=== PATIENT | female | born 1955 | race American Indian/Alaskan Native ===

== ENCOUNTER 2020-02-02 08:39 | Observation (INO) ==
[2020-02-02] MEDS ORDERED: IOPAMIDOL 100 ML BOTTLE IV ONE ×2 (08:40→14:51)
--- NOTE | 2020-02-02 09:03 | XRay Report ---
INDICATION: chest pain, SOB TECHNIQUE: AP portable semiupright chest x-ray COMPARISON: Previous chest x-ray dated 01/20/2020 FINDINGS: Lungs:Lungs are negative. No focal pulmonary parenchymal infiltrate or mass Heart, vascular:There is mild cardiomegaly, unchanged. No pulmonary congestion or pulmonary edema Mediastinum, dimas:No mediastinal widening. No hilar mass Pleura:No pleural fluid. No pleural-based mass or calcification Skeletal:Negative. IMPRESSION: 1. Cardiomegaly, unchanged 2. No pulmonary congestion or pulmonary edema. No focal pulmonary parenchymal infiltrate Interpreted and Authenticated by: Adeel De Leon 02/02/20
[2020-02-02 09:20] LABS: Basophils # (Auto) 0.04 K/mcL (0.00-0.30); Basophils % (Auto) 0.6 % (0.0-2.0); Eosinophils # (Auto) 0.07 K/mcL (0.00-0.70); Eosinophils % (Auto) 1.1 % (0.0-7.0); Granulocytes % (Auto) 55.2 % (38.0-78.0); Hematocrit 38.4 % (34.1-44.9); Hemoglobin 12.7 g/dL (11.2-15.7); Lymphocytes # (Auto) 2.37 K/mcL (1.50-4.80); Mean Cell Volume 88.9 fL (80.0-100.0); Mean Corpuscular HGB Conc 33.1 g/dL (31.0-36.0); Mean Platelet Volume 9.7 fL (7.4-10.4); Monocytes # (Auto) 0.39 K/mcL (0.10-0.90); Monocytes % (Auto) 6.1 % (1.0-12.0); Platelet Count 223 K/mcL (140-440); RBC 4.32 M/mcL (3.59-5.38); Red Cell Distribution Width 13.7 % (11.5-14.5); WBC 6.4 K/mcL (4.50-11.00)
[2020-02-02] MEDS ORDERED: ASPIRIN 81 MG TAB.CHEW CHEWED ONE (09:27)
[2020-02-02] MEDS ORDERED: KETOROLAC 30 MG/ML VIAL IV ONE (09:27)
[2020-02-02 10:35] LABS: Prothrombin Time 13.7 sec (11.9-14.5)
[2020-02-02 10:49] LABS: ALT/SGPT 42 U/l (0-40); AST/SGOT 37 U/l (0-37); Albumin 4.5 gm/dL (3.2-5.2); Albumin/Globulin Ratio 1.7 (1.0-2.3); Alkaline Phosphatase 107 U/L (39-117); Bilirubin,Total 0.8 mg/dL (0.0-1.0); Blood Urea Nitrogen 24 mg/dl (8-23); Calcium 9.6 mg/dl (8.6-10.4); Carbon Dioxide 19 mmol/L (22-30); Chloride 103 mmol/L (96-108); Globulin 2.6 gm/dL (2.2-3.7); Glomerular Filtration Rate 59; Glucose 203 mg/dL (70-105)
--- NOTE | 2020-02-02 11:17 | Cat Scan Report ---
INDICATION: SOB, tachycardia COMPARISON: Chest x-rays dated 02/02/2020, 01/20/2020, 01/12/2020 TECHNIQUE: Axial images obtained through the chest. 60ml Isovue 370 injected intravenously, and scanning was performed during pulmonary arterial phase. Sagittally and coronally reformatted images were obtained. MIP reformatted images. FINDINGS: Lungs:No focal pulmonary parenchymal density. No calcified or noncalcified nodule Mediastinum, vascular:Main pulmonary artery, right pulmonary artery, left pulmonary artery are negative. No intraluminal filling defects. No lobar, segmental, or subsegmental emboli. There are findings consistent with right heart strain. There is reflux of contrast material into the inferior vena cava and hepatic veins Thoracic aorta is negative. No aneurysmal dilatation No pathologic mediastinal or hilar adenopathy Heart:There is cardiomegaly with four-chamber cardiac enlargement. No pericardial effusion. There is only minimal coronary artery calcification with calcified plaque in the left circumflex coronary artery Pleura:No significant pleural effusion. No pleural mass or calcification Axilla, supraclavicular regions, chest wall:No pathologic axillary or supraclavicular adenopathy. Musculoskeletal:Negative thoracic spine. No compression fracture. No lytic lesion. No rib or sternal lesions Upper Abdomen:Negative IMPRESSION: 1. Negative pulmonary CTA. No pulmonary embolism 2. Cardiomegaly. There is right heart strain with reflux of contrast material into the inferior vena cava and hepatic veins The exam was performed using radiation dose optimization techniques including, but not limited to, automated exposure control, adjustment of the mA and/or kV according to patient size and use of iterative reconstruction technique. Interpreted and Authenticated by: Adeel De Leon 02/02/20
[2020-02-02] MEDS ORDERED: FUROSEMIDE 40 MG/4 ML VIAL IV ONE ×2 (11:18→12:23)
--- NOTE | 2020-02-02 11:21 | Emergency Department Note ---
Chest Pain HPI General Chief Complaint: Chest Pain Stated Complaint: chest pain Time Seen by Provider: 02/02/20 09:27 Source: patient Mode of arrival: ambulatory Limitations: no limitations History of Present Illness HPI Narrative: Narrative: 64-year-old female comes in for substernal chest pain is been going on for months. Additionally she is having orthopnea. Cannot seem to catch her breath. Known history of congestive heart failure but I do not see an echo on her record. Denies fever chills. She is having some nausea and some upper belly pain sort of a prickly feeling. Loose stools from a stool softener. Increased swelling in her feet-currently taking furosemide 40 mg once a day She has an appointment for mammogram today Related Data Home Medications Medication Instructions Recorded Confirmed aspirin [Adult Low Dose Aspirin EC] 81 mg PO DAILY 04/25/16 02/02/20 acetaminophen 325 mg tablet 650 mg PO Q4H PRN 01/30/20 02/02/20 docusate sodium 100 mg capsule 100 mg PO BID cap 01/30/20 02/02/20 insulin detemir U-100 100 unit/mL 5 unit SUB-Q QDAY ml 01/30/20 02/02/20 (3 mL) subcutaneous pen losartan 25 mg tablet 25 mg PO QDAY 01/30/20 02/02/20 multivitamin with minerals 1 tab PO QDAY 01/30/20 02/02/20 Previous Rx's Medication Instructions Recorded furosemide 40 mg PO QAM #3 tab 01/20/20 potassium chloride 20 meq PO QDAY #3 tab 01/20/20 Allergies Allergy/AdvReac Type Severity Reaction Status Date / Time hydromorphone [From Dilaudid] AdvReac Severe Vomiting Verified 02/02/20 08:41 Review of Systems ROS ROS Narrative: Narrative: All systems ED: reviewed and negative except as stated. PFSH Narrative Patient History Narrative: Narrative: Medical/Surgical/Family History All Active Problems (Updated 02/02/20 @ 14:42 by Calos Osuna MD) Right hand pain (Chronic) Scabies (Chronic) Lower respiratory infection (Chronic) URI (upper respiratory infection) (Chronic) Sprain of right ankle (Chronic) Mitral valve regurgitation (Chronic) Pharyngitis (Chronic) Bronchitis (Chronic) Plantar fasciitis of right foot (Chronic) Periostitis of ankle (Chronic) Bilateral foot pain (Chronic) Lateral epicondylitis of left elbow (Chronic) Pain in elbow (Chronic) Olecranon bursitis, right elbow (Chronic) Plantar fasciitis, left (Chronic) Candidiasis of skin (Chronic) Lichen planus (Chronic) Angular cheilitis (Chronic) Regular astigmatism (Chronic) Myopia (Chronic) Right foot pain (Chronic) Cirrhosis of liver (Chronic) Knee pain (Chronic) Heart failure (Chronic) Vitamin D deficiency (Chronic) Proteinuria (Chronic) Hemorrhoids without complication (Chronic) Hypertriglyceridemia (Chronic) Essential hypertension (Chronic) Depression (Chronic) Alcoholism (Chronic) Obese (Chronic) Chronic nasal congestion (Chronic) Cough (Chronic) Diabetes mellitus (Chronic) COPD (chronic obstructive pulmonary disease) (Chronic) Lung nodule seen on imaging study (Chronic) Chest pain (Chronic) Congestive heart failure (Chronic) Abdominal pain (Chronic) Acute bronchitis (Chronic) Diverticulitis (Chronic) Atypical chest pain (Chronic) Gastritis (Chronic) Urinary tract infection (Chronic) Constipation (Chronic) Viral syndrome (Chronic) Medical History Abdominal pain (Chronic) Acute bronchitis (Chronic) Alcoholism (Chronic) Angular cheilitis (Chronic) Atypical chest pain (Chronic) Bilateral foot pain (Chronic) Bronchitis (Chronic) Candidiasis of skin (Chronic) Chest pain (Chronic) Chronic nasal congestion (Chronic) Cirrhosis of liver (Chronic) Congestive heart failure (Chronic) Constipation (Chronic) Cough (Chronic) Depression (Chronic) Diverticulitis (Chronic) Essential hypertension (Chronic) Gastritis (Chronic) Heart failure (Chronic) Hemorrhoids without complication (Chronic) Hypertriglyceridemia (Chronic) Knee pain (Chronic) Lateral epicondylitis of left elbow (Chronic) Lichen planus (Chronic) of lips Lower respiratory infection (Chronic) Mitral valve regurgitation (Chronic) Myopia (Chronic) Obese (Chronic) Olecranon bursitis, right elbow (Chronic) Pain in elbow (Chronic) Periostitis of ankle (Chronic) Pharyngitis (Chronic) Plantar fasciitis of right foot (Chronic) Plantar fasciitis, left (Chronic) Proteinuria (Chronic) Regular astigmatism (Chronic) Right foot pain (Chronic) Right hand pain (Chronic) Scabies (Chronic) Sprain of right ankle (Chronic) Type 2 diabetes mellitus (Acute) URI (upper respiratory infection) (Chronic) Urinary tract infection (Chronic) Viral syndrome (Chronic) Vitamin D deficiency (Chronic) Family History Other No pertinent family history Social History Smoking Status: Current every day smoker Exam Narrative Narrative: Narrative: No acute distress resting and sitting up. She is able to talk in complete sentences but she has a slight end expiratory wheeze and sort of gasping for breath. She is mildly tachycardic and tachypneic at rest sitting up. Normocephalic atraumatic. Conjunctive are clear sclerae white nonicteric. No nasal discharge or congestion. Oropharynx pink and moist. Neck is supple without lymphadenopathy thyromegaly or carotid bruit. Heart is regular rate but mildly tachycardic. Lungs are basically clear to auscultation bilaterally without rales or rhonchi but she does have that slight end expiratory wheeze as noted above. Abdomen is soft nontender nondistended. No peritoneal signs or guarding. No pedal edema. +2 radial pulse. Alert and able answer questions. General Limitations: no limitations Course Vital Signs Vital signs: Vital Signs Temperature 97.0 F 02/02/20 08:39 Respiratory Rate 16 02/02/20 08:39 Pulse Oximetry (%) 98 02/02/20 08:39 Temperature 97.0 F 02/02/20 14:32 Pulse Rate 102 H 02/02/20 13:36 Respiratory Rate 20 02/02/20 14:32 Blood Pressure 134/79 02/02/20 14:32 Pulse Oximetry (%) 95 02/02/20 14:32 MDM MDM Narrative Medical decision making narrative: Narrative: Suspect congestive heart failure. Work-up ordered. Start furosemide. Other things in the differential include PE pneumonia malignancy etc. Imaging is unrevealing except for right heart strain suggestive of right-sided heart failure. Repeat dose of furosemide as she is only urinating a little bit Urinalysis suggest UTI with few bacteria seen. Start Macrobid Oxygenation improved after the first dose of furosemide but she continued to have tachypnea and tachycardia. Noted BNP is over double what it was last time she was here Discussed results with the patient and she is not quite comfortable going home- still with orthopnia tachypnea tachycardia. She is complaining of some very mild belly pain across her pannus. But exam is benign and we do not see any sign of infection-no leukocytosis or lactic acidosis I discussed this patient with Dr. Fernández, our hospitalist who agreed to accept the patient for further care and evaluation in the hospital. Lab Data Lab results reviewed: Yes I reviewed the patient's lab results. Result diagrams: 02/02/20 08:50 02/02/20 09:33 Labs: Lab Results 02/02/20 02/02/20 02/02/20 Range/Units 08:50 08:50 08:50 WBC 6.4 (4.50-11.00) K/mcL RBC 4.32 (3.59-5.38) M/mcL Hgb 12.7 (11.2-15.7) g/dL Hct 38.4 (34.1-44.9) % MCV 88.9 (80.0-100.0) fL MCH 29.4 (26.0-34.0) pg MCHC 33.1 (31.0-36.0) g/dL RDW 13.7 (11.5-14.5) % Plt Count 223 (140-440) K/mcL MPV 9.7 (7.4-10.4) fL Gran % 55.2 (38.0-78.0) % Lymph % (Auto) 37.0 (15.5-49.0) % [place] % (Auto) 6.1 (1.0-12.0) % Eos % (Auto) 1.1 (0.0-7.0) % Baso % (Auto) 0.6 (0.0-2.0) % Gran # 3.54 (1.80-8.00) K/mcL Lymph # (Auto) 2.37 (1.50-4.80) K/mcL [place] # (Auto) 0.39 (0.10-0.90) K/mcL Eos # (Auto) 0.07 (0.00-0.70) K/mcL Baso # (Auto) 0.04 (0.00-0.30) K/mcL PT (11.9-14.5) sec INR (0.9-1.1) Sodium TNP Potassium TNP Chloride TNP Carbon Dioxide TNP Anion Gap TNP BUN TNP Creatinine TNP GFR Calculation TNP Glucose TNP Calcium TNP Total Bilirubin TNP AST TNP ALT TNP Alkaline Phosphatase TNP Troponin T TNP NT-Pro-B Natriuret Pep (0-125) pg/ml Total Protein TNP Albumin TNP Globulin TNP Albumin/Globulin Ratio TNP Lipase (7-60) U/L Urine Color Urine Appearance Urine pH (5.0-9.0) Ur Specific [place] (1.000-1.035) Urine Protein (NEG) mg/dL Urine Glucose (UA) (NEG) mg/dL Urine Ketones (NEG) mg/dL Urine Occult Blood (<0.03) mg/dL Urine Nitrate (NEG) Urine Bilirubin (NEG) mg/dL Urine Urobilinogen (NEG) mg/dL Ur Leukocyte Esterase (NEG) /uL Urine RBC (0-1) /hpf Urine WBC (0-4) /hpf Ur Squamous Epith Cells (0-4) /hpf Urine Bacteria (0) /hpf Hyaline Casts (0-2) /lpf Urine Mucus (0) /hpf Ur Culture Indicated? 02/02/20 02/02/20 02/02/20 Range/Units 09:33 09:33 09:33 WBC (4.50-11.00) K/mcL RBC (3.59-5.38) M/mcL Hgb (11.2-15.7) g/dL Hct (34.1-44.9) % MCV (80.0-100.0) fL MCH (26.0-34.0) pg MCHC (31.0-36.0) g/dL RDW (11.5-14.5) % Plt Count (140-440) K/mcL MPV (7.4-10.4) fL Gran % (38.0-78.0) % Lymph % (Auto) (15.5-49.0) % [place] % (Auto) (1.0-12.0) % Eos % (Auto) (0.0-7.0) % Baso % (Auto) (0.0-2.0) % Gran # (1.80-8.00) K/mcL Lymph # (Auto) (1.50-4.80) K/mcL [place] # (Auto) (0.10-0.90) K/mcL Eos # (Auto) (0.00-0.70) K/mcL Baso # (Auto) (0.00-0.30) K/mcL PT (11.9-14.5) sec INR (0.9-1.1) Sodium 138 Potassium 4.0 Chloride 103 Carbon Dioxide 19 L Anion Gap 16.0 BUN 24 H Creatinine 1.0 GFR Calculation 59 Glucose 203 H Calcium 9.6 Total Bilirubin 0.8 AST 37 ALT 42 H Alkaline Phosphatase 107 Troponin T < 0.01 NT-Pro-B Natriuret Pep 6089.0 H (0-125) pg/ml Total Protein 7.1 Albumin 4.5 Globulin 2.6 Albumin/Globulin Ratio 1.7 Lipase 27 (7-60) U/L Urine Color Urine Appearance Urine pH (5.0-9.0) Ur Specific [place] (1.000-1.035) Urine Protein (NEG) mg/dL Urine Glucose (UA) (NEG) mg/dL Urine Ketones (NEG) mg/dL Urine Occult Blood (<0.03) mg/dL Urine Nitrate (NEG) Urine Bilirubin (NEG) mg/dL Urine Urobilinogen (NEG) mg/dL Ur Leukocyte Esterase (NEG) /uL Urine RBC (0-1) /hpf Urine WBC (0-4) /hpf Ur Squamous Epith Cells (0-4) /hpf Urine Bacteria (0) /hpf Hyaline Casts (0-2) /lpf Urine Mucus (0) /hpf Ur Culture Indicated? 02/02/20 02/02/20 Range/Units 09:33 10:28 WBC (4.50-11.00) K/mcL RBC (3.59-5.38) M/mcL Hgb (11.2-15.7) g/dL Hct (34.1-44.9) % MCV (80.0-100.0) fL MCH (26.0-34.0) pg MCHC (31.0-36.0) g/dL RDW (11.5-14.5) % Plt Count (140-440) K/mcL MPV (7.4-10.4) fL Gran % (38.0-78.0) % Lymph % (Auto) (15.5-49.0) % [place] % (Auto) (1.0-12.0) % Eos % (Auto) (0.0-7.0) % Baso % (Auto) (0.0-2.0) % Gran # (1.80-8.00) K/mcL Lymph # (Auto) (1.50-4.80) K/mcL [place] # (Auto) (0.10-0.90) K/mcL Eos # (Auto) (0.00-0.70) K/mcL Baso # (Auto) (0.00-0.30) K/mcL PT 13.7 (11.9-14.5) sec INR 1.0 (0.9-1.1) Sodium Potassium Chloride Carbon Dioxide Anion Gap BUN Creatinine GFR Calculation Glucose Calcium Total Bilirubin AST ALT Alkaline Phosphatase Troponin T NT-Pro-B Natriuret Pep (0-125) pg/ml Total Protein Albumin Globulin Albumin/Globulin Ratio Lipase (7-60) U/L Urine Color Yellow Urine Appearance Clear Urine pH 5.0 (5.0-9.0) Ur Specific [place] 1.009 (1.000-1.035) Urine Protein 30 A (NEG) mg/dL Urine Glucose (UA) Negative (NEG) mg/dL Urine Ketones Neg (NEG) mg/dL Urine Occult Blood Neg (<0.03) mg/dL Urine Nitrate Neg (NEG) Urine Bilirubin Neg (NEG) mg/dL Urine Urobilinogen Neg (NEG) mg/dL Ur Leukocyte Esterase Neg (NEG) /uL Urine RBC < 1 (0-1) /hpf Urine WBC < 1 (0-4) /hpf Ur Squamous Epith Cells 1 (0-4) /hpf Urine Bacteria Few A (0) /hpf Hyaline Casts 3 H (0-2) /lpf Urine Mucus Few (0) /hpf Ur Culture Indicated? Yes Radiology Data Radiology results reviewed: Yes I reviewed the patient's radiology results. Radiology results narrative: Chest x-ray is unrevealing. CT angiogram of the chest is ordered to further sort out whether she has a PE causing her tachycardia and shortness of breath. CT angiogram however shows right-sided heart strain consistent with congestive heart failure however. No PE is seen EKG Data EKG #1: EKG attestation: Yes I reviewed and interpreted this EKG. EKG results narrative: EKG shows a rate of 109 sinus tachycardia with PVCs right bundle branch block and a left fascicular block as well-there is no appreciable difference between this EKG and the one from January 19 Discharge Plan Patient/Caregiver Discharge Instructions Pt seen by CIVIL RIGHTS REPRESENTATIVE/PA only: No Clinical Impression: Congestive heart failure Qualifiers: Heart failure type: right-sided Heart failure chronicity: acute on chronic Qualified Code(s): I50.813 - Acute on chronic right heart failure Urinary tract infection Qualifiers: Urinary tract infection type: acute cystitis Hematuria presence: without hematuria Qualified Code(s): N30.00 - Acute cystitis without hematuria Patient Disposition: Xfer As Inpt ([facility]) Condition: Fair Follow up with: Doyle Crawford MD [Primary Care Provider] - Prescriptions: No Action acetaminophen 325 mg tablet 650 mg PO Q4H PRN (Reason: Pain) RF: 0 Levemir FlexTouch U-100 Insuln 100 unit/mL (3 mL) insulin pen 5 unit SUB-Q QDAY RF: 0 losartan 25 mg tablet 25 mg PO QDAY RF: 0 multivitamin with minerals 1 tab PO QDAY RF: 0 aspirin [Adult Low Dose Aspirin] 81 MG tablet,delayed release (DR/EC) 81 mg PO DAILY RF: 0 docusate sodium [Stool Softener] 100 mg capsule 100 mg PO BID RF: 0 furosemide 40 mg tablet 40 mg PO QAM Qty: 3 RF: 0 potassium chloride 20 mEq tablet extended release 20 meq PO QDAY Qty: 3 RF: 0
[2020-02-02 11:52] LABS: Appearance,Urine CLEAR; Bacteria,Urine FEW /hpf (0); Bilirubin,Urine NEG (NEG); Color,Urine YELLOW; Culture Indicated,Urine YES; Glucose,Urine (UA) NEGATIVE (NEG); Ketones,Urine NEG (NEG); Leukocyte Esterase,Urine NEG /uL (NEG); Mucus,Urine FEW /hpf (0); Nitrate,Urine NEG (NEG); Protein,Urine 30 mg/dL (NEG); Specific Gravity,Urine 1.009 (1.000-1.035); Urine Blood NEG mg/dL (<0.03); Urine Hyaline Cast 3 /lpf (0-2); Urine RBC < 1 /hpf (0-1); Urine Squamous Epithelial Cell 1 /hpf (0-4); Urine WBC < 1 /hpf (0-4); Urobilinogen,Urine NEG (NEG)
[2020-02-02] MEDS ORDERED: NITROFURANTOIN SR 100 MG CAPSULE PO ONE (12:05)
--- NOTE | 2020-02-02 14:07 | Internal Med History&Physical ---
HPI History of Present Illness Patient information: Note initiated : 02/02/20 at 2:05 pm Service Date, if different from initiated Date: [] Patient: Cait Reyes a 64 y/o F admitted on for Chest Pain . Chief Complaint: [] History of present illness: Ms. Reyes is a 64 year old F who lives fairly independently at home and was in her baseline state of health of less than 2 weeks prior to presentation when she started experiencing progressive dyspnea initially on maximal exertion dyspnea at rest by the day of presentation. She endorses to associated orthopnea but denies productive cough/sputum. She denies fever chills. She denies changes in medication or excessive salt diet or missing her regular medications. She endorses to bilateral lower extremity swelling/abdominal fullness and ache. Last 24 hours she has not been able to sleep or lie down and has been short of breath even at rest. She has been on Lasix but has not helped the symptoms Initial work-up in the ER with a CT was unremarkable except for right heart strain. Subsequently hospitalist service was consulted for evaluation and admission in light of progressive shortness of breath/orthopnea At the time of evaluation patient is alert and respond to commands. She denies sick contacts. She endorses to history as above. Review of systems 10 point review system was performed and is negative except for ones cussed above [facility] Medical History Abdominal pain (Chronic) Acute bronchitis (Chronic) Alcoholism (Chronic) Angular cheilitis (Chronic) Atypical chest pain (Chronic) Bilateral foot pain (Chronic) Bronchitis (Chronic) Candidiasis of skin (Chronic) Chest pain (Chronic) Chronic nasal congestion (Chronic) Cirrhosis of liver (Chronic) Congestive heart failure (Chronic) Constipation (Chronic) Cough (Chronic) Depression (Chronic) Diverticulitis (Chronic) Essential hypertension (Chronic) Gastritis (Chronic) Heart failure (Chronic) Hemorrhoids without complication (Chronic) Hypertriglyceridemia (Chronic) Knee pain (Chronic) Lateral epicondylitis of left elbow (Chronic) Lichen planus (Chronic) of lips Lower respiratory infection (Chronic) Mitral valve regurgitation (Chronic) Myopia (Chronic) Obese (Chronic) Olecranon bursitis, right elbow (Chronic) Pain in elbow (Chronic) Periostitis of ankle (Chronic) Pharyngitis (Chronic) Plantar fasciitis of right foot (Chronic) Plantar fasciitis, left (Chronic) Proteinuria (Chronic) Regular astigmatism (Chronic) Right foot pain (Chronic) Right hand pain (Chronic) Scabies (Chronic) Sprain of right ankle (Chronic) Type 2 diabetes mellitus (Acute) URI (upper respiratory infection) (Chronic) Urinary tract infection (Chronic) Viral syndrome (Chronic) Vitamin D deficiency (Chronic) Family History Other No pertinent family history Social History smoking status: Current every day smoker MEDS/ALLERGIES Home Medications and Allergies Home Medications Medication Instructions Recorded Confirmed Type aspirin [Adult Low Dose Aspirin EC] 81 mg PO DAILY 04/25/16 02/02/20 History furosemide 40 mg PO QAM #3 tab 01/20/20 02/02/20 Rx potassium chloride 20 meq PO QDAY #3 tab 01/20/20 02/02/20 Rx acetaminophen 325 mg tablet 650 mg PO Q4H PRN 01/30/20 02/02/20 History docusate sodium 100 mg capsule 100 mg PO BID cap 01/30/20 02/02/20 History insulin detemir U-100 100 unit/mL 5 unit SUB-Q QDAY ml 01/30/20 02/02/20 History (3 mL) subcutaneous pen losartan 25 mg tablet 25 mg PO QDAY 01/30/20 02/02/20 History multivitamin with minerals 1 tab PO QDAY 01/30/20 02/02/20 History Allergies Allergy/AdvReac Type Severity Reaction Status Date / Time hydromorphone [From Dilaudid] AdvReac Severe Vomiting Verified 02/02/20 08:41 EXAM Constitutional Vitals: Temp Pulse Resp BP Pulse Ox 97.0 F 102 H 36 H 134/79 95 02/02/20 08:39 02/02/20 13:36 02/02/20 13:01 02/02/20 13:36 02/02/20 13:36 Head normocephalic Oral cavity moist No ear nose discharge Eye movement symmetrical Neck supple normal ROM S1-S2 regular Labored breathing Pendulous nontender abdomen, no guarding or hernia Lower extremity no cyanosis clubbing or joint swelling Skin no suspicious lesion Psych anxious but alert cooperative Neuro normal higher function DATA Data Completed and Pending Labs on day of discharge: Labs from last 24 hours 02/02/20 02/02/20 02/02/20 10:28 09:33 09:33 WBC RBC Hgb Hct MCV MCH MCHC RDW Plt Count MPV Gran % Lymph % (Auto) [place] % (Auto) Eos % (Auto) Baso % (Auto) Gran # Lymph # (Auto) [place] # (Auto) Eos # (Auto) Baso # (Auto) PT 13.7 INR 1.0 Sodium Potassium Chloride Carbon Dioxide Anion Gap BUN Creatinine GFR Calculation Glucose Calcium Total Bilirubin AST ALT Alkaline Phosphatase Troponin T NT-Pro-B Natriuret Pep Total Protein Albumin Globulin Albumin/Globulin Ratio Lipase 27 Urine Color Yellow Urine Appearance Clear Urine pH 5.0 Ur Specific [place] 1.009 Urine Protein 30 A Urine Glucose (UA) Negative Urine Ketones Neg Urine Occult Blood Neg Urine Nitrate Neg Urine Bilirubin Neg Urine Urobilinogen Neg Ur Leukocyte Esterase Neg Urine RBC < 1 Urine WBC < 1 Ur Squamous Epith Cells 1 Urine Bacteria Few A Hyaline Casts 3 H Urine Mucus Few Ur Culture Indicated? Yes 02/02/20 02/02/20 02/02/20 09:33 09:33 08:50 WBC RBC Hgb Hct MCV MCH MCHC RDW Plt Count MPV Gran % Lymph % (Auto) [place] % (Auto) Eos % (Auto) Baso % (Auto) Gran # Lymph # (Auto) [place] # (Auto) Eos # (Auto) Baso # (Auto) PT INR Sodium 138 Potassium 4.0 Chloride 103 Carbon Dioxide 19 L Anion Gap 16.0 BUN 24 H Creatinine 1.0 GFR Calculation 59 Glucose 203 H Calcium 9.6 Total Bilirubin 0.8 AST 37 ALT 42 H Alkaline Phosphatase 107 Troponin T < 0.01 TNP NT-Pro-B Natriuret Pep 6089.0 H Total Protein 7.1 Albumin 4.5 Globulin 2.6 Albumin/Globulin Ratio 1.7 Lipase Urine Color Urine Appearance Urine pH Ur Specific [place] Urine Protein Urine Glucose (UA) Urine Ketones Urine Occult Blood Urine Nitrate Urine Bilirubin Urine Urobilinogen Ur Leukocyte Esterase Urine RBC Urine WBC Ur Squamous Epith Cells Urine Bacteria Hyaline Casts Urine Mucus Ur Culture Indicated? 02/02/20 02/02/20 08:50 08:50 WBC 6.4 RBC 4.32 Hgb 12.7 Hct 38.4 MCV 88.9 MCH 29.4 MCHC 33.1 RDW 13.7 Plt Count 223 MPV 9.7 Gran % 55.2 Lymph % (Auto) 37.0 [place] % (Auto) 6.1 Eos % (Auto) 1.1 Baso % (Auto) 0.6 Gran # 3.54 Lymph # (Auto) 2.37 [place] # (Auto) 0.39 Eos # (Auto) 0.07 Baso # (Auto) 0.04 PT INR Sodium TNP Potassium TNP Chloride TNP Carbon Dioxide TNP Anion Gap TNP BUN TNP Creatinine TNP GFR Calculation TNP Glucose TNP Calcium TNP Total Bilirubin TNP AST TNP ALT TNP Alkaline Phosphatase TNP Troponin T NT-Pro-B Natriuret Pep Total Protein TNP Albumin TNP Globulin TNP Albumin/Globulin Ratio TNP Lipase Urine Color Urine Appearance Urine pH Ur Specific [place] Urine Protein Urine Glucose (UA) Urine Ketones Urine Occult Blood Urine Nitrate Urine Bilirubin Urine Urobilinogen Ur Leukocyte Esterase Urine RBC Urine WBC Ur Squamous Epith Cells Urine Bacteria Hyaline Casts Urine Mucus Ur Culture Indicated? A/P Narrative A/P Narrative: * Acute hypoxic respiratory failure-continue supplemental oxygen. Likely secondary COPD exacerbation/right heart failure * COPD exacerbation steroids bronchodilators/pulmonary toilet. Patient was a longtime smoker but quit recently * Right heart strain on CT-echocardiogram to rule out pulmonary hypertension/optimize treatment based on echo * DM type II continue basal prandial insulin/CC diet * Hypertension continue home dose losartan * Chronic lymphedema on home dose Lasix * Prophylaxis heparin Plan * Observation admission * Steroids bronchodilators * Echocardiogram * Diuresis * Pre-existing medical condition management home medication * Discharge planning Time Spent With Patient Time: Total time spent is greater than 50% in coordination of care (as documented) at patient's floor/unit and/or counseling patient:
[2020-02-02] MEDS ORDERED: ONDANSETRON 4 MG/2 ML VIAL IV PRN (14:51)
[2020-02-02] MEDS ORDERED: POTASSIUM CHLORIDE 20 MEQ PACKET PO PRN (14:51)
[2020-02-02] MEDS ORDERED: MAGNESIUM SULFATE 2 GM/50 ML BAG IV PRN (14:51)
[2020-02-02] MEDS ORDERED: ACETAMINOPHEN (PP) 325MG TABLET (#50) PO PRN (14:51)
[2020-02-02] MEDS ORDERED: POLYETHYLENE GLYCOL 3350 17 GM PACKET PO PRN (14:51)
[2020-02-02] MEDS ORDERED: DEXTROSE 31 GM ORAL.SUSP PO PRN (14:51)
[2020-02-02] MEDS ORDERED: guaiFENesin/CODEINE 10 ML UDC PO PRN (14:51)
[2020-02-02] MEDS ORDERED: ACETAMINOPHEN 650 MG/65 ML BOTTLE IV PRN (14:51)
[2020-02-02] MEDS ORDERED: hydrALAZINE 20 MG/ML VIAL IV PRN (14:51)
[2020-02-02] MEDS ORDERED: METOPROLOL TARTRATE 5 MG/5 ML VIAL IV PRN (14:51)
[2020-02-02] MEDS ORDERED: DEXTROSE 50% 50 ML VIAL IV PRN (14:51)
[2020-02-02] MEDS ORDERED: ONDANSETRON 4 MG ODT TABLET SL PRN (14:51)
[2020-02-02] MEDS ORDERED: BISACODYL 10 MG SUPP.RECT PR PRN (14:51)
[2020-02-02] MEDS: IPRATROPIUM/ALBUTEROL 3 ML AMPUL.NEB NEB SCH ×3 (15:20→23:01)
[2020-02-02] MEDS: 0.9 % SODIUM CHLORIDE 10 ML SYRINGE IV SCH ×2 (15:33→20:11)
[2020-02-02] MEDS: INSULIN LISPRO 1 UNIT/0.01 ML UNIT SQ SCH ×2 (17:29→20:10)
[2020-02-02] MEDS: BUDESONIDE 0.5 MG/2 ML AMPUL.NEB NEB SCH (19:29)
[2020-02-02] MEDS: DOCUSATE SODIUM 100 MG CAPSULE PO SCH (20:09)
[2020-02-02] MEDS: SENNOSIDES/DOCUSATE SODIUM 1 TAB TABLET PO SCH (20:09)
[2020-02-02] MEDS: HEPARIN 5,000 UNIT/ML VIAL SQ SCH (20:10)
[2020-02-02] MEDS: methylPREDNISolone SOD SUCC 125 MG/2 ML VIAL IV SCH (20:11)
[2020-02-02] MEDS: MELATONIN 3 MG TABLET PO PRN (20:25)
[2020-02-02] MEDS: ACETAMINOPHEN 325 MG TABLET PO PRN (20:25)
[2020-02-02] MEDS ORDERED: DOCUSATE SODIUM 100 MG CAPSULE PO SCH (21:00)
[2020-02-03] MEDS: IPRATROPIUM/ALBUTEROL 3 ML AMPUL.NEB NEB SCH ×6 (03:30→23:06)
[2020-02-03] MEDS: 0.9 % SODIUM CHLORIDE 10 ML SYRINGE IV SCH ×3 (04:50→21:08)
[2020-02-03 06:33] LABS: Hematocrit 37.3 % (34.1-44.9); Hemoglobin 12.2 g/dL (11.2-15.7); Mean Cell Volume 89.9 fL (80.0-100.0); Mean Corpuscular HGB Conc 32.7 g/dL (31.0-36.0); Mean Platelet Volume 9.6 fL (7.4-10.4); Platelet Count 219 K/mcL (140-440); RBC 4.15 M/mcL (3.59-5.38); Red Cell Distribution Width 13.9 % (11.5-14.5); WBC 5.8 K/mcL (4.50-11.00)
[2020-02-03 07:08] LABS: ALT/SGPT 40 U/l (0-40); AST/SGOT 29 U/l (0-37); Albumin 4.1 gm/dL (3.2-5.2); Albumin/Globulin Ratio 1.6 (1.0-2.3); Alkaline Phosphatase 103 U/L (39-117); Bilirubin,Direct < 0.2 mg/dL (0.0-0.3); Bilirubin,Total 0.7 mg/dL (0.0-1.0); Blood Urea Nitrogen 28 mg/dl (8-23); Calcium 8.9 mg/dl (8.6-10.4); Carbon Dioxide 19 mmol/L (22-30); Chloride 97 mmol/L (96-108); Globulin 2.6 gm/dL (2.2-3.7); Glomerular Filtration Rate 59; Glucose 289 mg/dL (70-105); Lactate Dehydrogenase 211 U/L (94-250); Phosphorous 4.6 mg/dL (2.7-4.5); Triglycerides 265 mg/dl (<150)
[2020-02-03] MEDS: BUDESONIDE 0.5 MG/2 ML AMPUL.NEB NEB SCH ×2 (07:29→19:07)
[2020-02-03 07:46] LABS: Band Neutrophils % 6 % (0-10); Lymphocytes % 12 % (15-49); Metamyelocytes % 2 % (0-0); Monocytes % (Manual) 1 % (1-12); Platelet Estimate NORMAL (NORMAL); RBC Morphology NORMAL (NORMAL); Segmented Neutrophils % 79 % (38-78)
[2020-02-03] MEDS: INSULIN LISPRO 1 UNIT/0.01 ML UNIT SQ SCH ×4 (07:50→21:07)
--- NOTE | 2020-02-03 08:48 | Internal Med Progress Note ---
SUBJECTIVE Subjective Patient information: Note initiated : 02/03/20 at 8:43 am Service Date, if different from initiated Date: [] Patient: Cait Reyes 64 y/o F admitted on 02/02/20 for Chest Pain . Chief Complaint: History of present illness: Ms. Reyes is a 64 year old F who lives fairly i ndependently at home and was in her baseline state of health of less than 2 weeks prior to presentation when she started experiencing progressive dyspnea initially on maximal exertion dyspnea at rest by the day of presentation. She endorses to associated orthopnea but denies productive cough/sputum. She denies fever chills. She denies changes in medication or excessive salt diet or missing her regular medications. She endorses to bilateral lower extremity swelling/abdominal fullness and ache. Last 24 hours she has not been able to sleep or lie down and has been short of breath even at rest. She has been on Lasix but has not helped the symptoms Initial work-up in the ER with a CT was unremarkable except for right heart strain. Subsequently hospitalist service was consulted for evaluation and admission in light of progressive shortness of breath/orthopnea At the time of evaluation patient is alert and respond to commands. She denies sick contacts. She endorses to history as above. 02/02-patient doing a lot better. Improved shortness of breath. On room air. Able to tolerate diet. Ambulating. Await echocardiogram. Preliminary EF 30%. Await final results. Start beta-carmelo/MAGALY inhibitor. 8 beat of V. tach around 4 AM. Ongoing diuresis. Constitutional Vitals: Vital Signs Temp Pulse Resp BP Pulse Ox 98.3 F 99 H 18 120/81 94 02/03/20 07:55 02/03/20 07:55 02/03/20 07:55 02/03/20 07:55 02/03/20 07:55 Period Temp Pulse Resp BP Sys/Garcia Pulse Ox Last 24 Hr 97.0 F-98.4 F 46-108 16-36 96-142/72-99 89-98 Intake and Output 02/02/20 02/03/20 02/03/20 21:59 05:59 13:59 Intake Total 600 360 Output Total 100 700 150 Balance -100 -100 210 Weight 88.536 kg Alert oriented no telemetry event No anxiety Improved lymphedema Nonlabored breathing Intake & Output: Intake & Output 02/02/20 02/03/20 02/03/20 21:59 05:59 13:59 Intake Total 600 360 Output Total 100 700 150 Balance -100 -100 210 Weight 88.536 kg Intake: Oral 600 360 Output: Void Amount 100 700 150 Other: Meal Dinner Breakfast Percent of Meal Consumed 100% 75% Feeding Ability Independent Urine Appearance Clear Urine Color Bright Yellow # Voids 1 OBJ DATA Labs CBC & Chem 7: 02/03/20 04:42 02/03/20 04:42 Labs: Abnormal Lab Results 02/03/20 02/03/20 02/02/20 04:42 04:42 10:28 Seg Neutrophils % 79 H Lymphocytes % 12 L Metamyelocytes % 2 H Carbon Dioxide 19 L Anion Gap 20.0 H BUN 28 H Glucose 289 H Uric Acid 13.0 H Phosphorus 4.6 H GGT 49 H ALT NT-Pro-B Natriuret Pep Triglycerides 265 H Urine Protein 30 A Urine Bacteria Few A Hyaline Casts 3 H 02/02/20 09:33 Seg Neutrophils % Lymphocytes % Metamyelocytes % Carbon Dioxide 19 L Anion Gap BUN 24 H Glucose 203 H Uric Acid Phosphorus GGT ALT 42 H NT-Pro-B Natriuret Pep 6089.0 H Triglycerides Urine Protein Urine Bacteria Hyaline Casts Meds: Medications Acetaminophen (Tylenol) 650 mg PO Q4-6HP PRN; Protocol PRN Reason: Per Pain Protocol/Fever > 101 Last Admin: 02/02/20 20:25 Dose: 650 mg Documented by: Albuterol/Ipratropium (Duoneb) 3 ml NEB Q4HRT [facility] Last Admin: 02/03/20 07:29 Dose: 3 ml Documented by: Aspirin (Aspirin) 81 mg PO DAILY [facility] Bisacodyl (Dulcolax) 10 mg NC Q2-3DAYS PRN PRN Reason: Constipation Budesonide (Pulmicort) 0.5 mg NEB Q12 [facility] Last Admin: 02/03/20 07:29 Dose: 0.5 mg Documented by: Dextrose (Dextrose 50%) 0 ml IV UD PRN PRN Reason: Hypoglycemia Diagnostic Test (Pha) (Accu-Chek) 1 each FS ACHS [facility] Last Admin: 02/03/20 07:16 Dose: 1 each Documented by: Docusate Sodium (Colace) 100 mg PO BID [facility] Last Admin: 02/02/20 20:09 Dose: 100 mg Documented by: Furosemide (Lasix) 40 mg PO QAM [facility] Glucose (Insta-Glucose) 15 gm PO PRN PRN PRN Reason: Hypoglycemia Guaifenesin/Codeine Phosphate (Robitussin Ac) 10 ml PO Q4HP PRN PRN Reason: Cough Heparin Sodium (Porcine) (Heparin) 5,000 unit SQ Q12 [facility] Last Admin: 02/02/20 20:10 Dose: 5,000 unit Documented by: Hydralazine HCl (Apresoline) 10 mg IV Q4-6HP PRN PRN Reason: Hypertension Acetaminophen (Ofirmev) 650 mg in 65 mls @ 130 mls/hr IV Q6HP PRN; Protocol PRN Reason: Per Pain Protocol/Fever > 101 Magnesium Sulfate (Magnesium Sulfate) 2 gm in 50 mls @ 50 mls/hr IV UD PRN PRN Reason: MG = or < 1.7 Insulin Glargine (Lantus) 5 unit SQ QDAY [facility] Insulin Human Lispro (Humalog) 0 unit SQ ACHS [facility]; Protocol Last Admin: 02/03/20 07:50 Dose: 6 unit Documented by: Iron Carb/Multivit/Chemical Cell Changer/Folic Acid (Multivitamin W/Minerals) 1 tab PO DAILY [facility] Losartan Potassium (Cozaar) 25 mg PO QDAY [facility] Melatonin (Melatonin 3mg Tablet) 3 mg PO HSP PRN PRN Reason: Insomnia Last Admin: 02/02/20 20:25 Dose: 3 mg Documented by: Methylprednisolone Sodium Succinate (Solu-Medrol) 60 mg IV Q12 [facility] Last Admin: 02/02/20 20:11 Dose: 60 mg Documented by: Metoprolol Tartrate (Lopressor) 5 mg IV Q5M PRN PRN Reason: Heart Rate > 140 bpm Ondansetron HCl (Zofran Odt) 4 mg SL Q4-6HP PRN; Protocol PRN Reason: Nausea And Vomiting Ondansetron HCl (Zofran) 4 mg IV Q4-6HP PRN; Protocol PRN Reason: Nausea And Vomiting Pneumococcal Polyvalent Vaccine (Pneumovax 23) 0.5 ml IM .ONCE ONE Stop: 02/03/20 10:01 Polyethylene Glycol (Miralax) 17 gm PO DAILYP PRN PRN Reason: Constipation Potassium Chloride (Kdur) 20 meq PO QAMCC [facility] Potassium Chloride (Klor-Con) 40 meq PO DAILYP PRN PRN Reason: K+ < 3.5 Senna/Docusate Sodium (Senna Plus Tablet) 1 tab PO HS [facility] Last Admin: 02/02/20 20:09 Dose: 1 tab Documented by: Sitagliptin Phosphate (Januvia) 100 mg PO DAILY [facility] Sodium Chloride (Saline Flush) 10 ml IV Q8 [facility] Last Admin: 02/03/20 04:50 Dose: 10 ml Documented by: A/P Narrative A/P Narrative: * Acute hypoxic respiratory failure-clinically improved with d iuresis/bronchodilators and steroids. Patient off oxygen. Much improved since admission. * COPD exacerbation steroids bronchodilators/pulmonary toilet. Patient was a longtime smoker but quit recently. Significant improvement since previous day. Anticipate discharge in 24 to 40 hours. * Acute decompensated heart failure- preliminary echo review suggestive of EF 30%. Await final echo read. Start beta-carmelo. Patient already on ARB. * DM type II continue basal prandial insulin/CC diet * Hypertension continue home dose losartan * Chronic lymphedema on home dose Lasix * Prophylaxis heparin Plan * Await echocardiogram * Continue steroids and bronchodilators * Start beta-carmelo, optimize dosing based on echo findings. * Continue diuresis * Pre-existing medical condition management home medication * Discharge planning likely in 24 to 48 hours Time Spent With Patient Time: Total time spent is greater than 50% in coordination of care (as documented) at patient's floor/unit and/or counseling patient:
[2020-02-03] MEDS: DOCUSATE SODIUM 100 MG CAPSULE PO SCH ×2 (08:55→19:36)
[2020-02-03] MEDS: sitaGLIPtin 100 MG TABLET PO SCH (08:55)
[2020-02-03] MEDS: MULTIVIT,THER IRON,CA,FA & MIN 1 TABLET PO SCH (08:55)
[2020-02-03] MEDS: POTASSIUM CHLORIDE 20 MEQ TABLET PO SCH (08:55)
[2020-02-03] MEDS: methylPREDNISolone SOD SUCC 125 MG/2 ML VIAL IV SCH (08:56)
[2020-02-03] MEDS: HEPARIN 5,000 UNIT/ML VIAL SQ SCH ×2 (08:56→21:07)
[2020-02-03] MEDS: ASPIRIN 81 MG TAB.CHEW PO SCH (08:56)
[2020-02-03] MEDS ORDERED: LOSARTAN 25 MG TABLET PO SCH (09:00)
[2020-02-03] MEDS ORDERED: METOPROLOL SUCCINATE 25 MG TAB.XL.24H PO SCH (09:00)
[2020-02-03] MEDS ORDERED: INSULIN GLARGINE, HUMAN 1 UNIT/0.01 ML SQ SCH (09:00)
[2020-02-03] MEDS ORDERED: FUROSEMIDE 40 MG TABLET PO SCH (09:00)
[2020-02-03] MEDS ORDERED: MULTIVITAMIN WITH MINERALS PO SCH (09:00)
[2020-02-03] MEDS ORDERED: PNEUMOCOCCAL 23-VAL P-SAC VAC 0.5 ML SYRINGE IM ONE (10:00)
--- NOTE | 2020-02-03 13:50 | Internal Med Progress Note ---
SUBJECTIVE Subjective Patient information: Note initiated : 02/03/20 at 1:42 pm Service Date, if different from initiated Date: [] Patient: Cait Reyes 64 y/o F admitted on 02/02/20 for Chest Pain . Chief Complaint: [] Interval history: History of present illness: Ms. Reyes is a 64 year old F who lives fairly independently at home and was in her baseline state of health of less than 2 weeks prior to presentation when she started experiencing progressive dyspnea initially on maximal exertion dyspnea at rest by the day of presentation. She endorses to associated orthopnea but denies productive cough/sputum. She denies fever chills. She denies changes in medication or excessive salt diet or missing her regular medications. She endorses to bilateral lower extremity swelling/abdominal fullness and ache. Last 24 hours she has not been able to sleep or lie down and has been short of breath even at rest. She has been on Lasix but has not helped the symptoms Initial work-up in the ER with a CT was unremarkable except for right heart strain. Subsequently hospitalist service was consulted for evaluation and admission in light of progressive shortness of breath/orthopnea At the time of evaluation patient is alert and respond to commands. She denies sick contacts. She endorses to history as above. 02/02-patient doing a lot better. Improved shortness of breath. On room air. Able to tolerate diet. Ambulating. Await echocardiogram. Preliminary EF 30%. Await final results. Start beta-carmelo/MAGALY inhibitor. 8 beat of V. tach around 4 AM. Ongoing diuresis. 02/03 Constitutional Vitals: Vital Signs Temp Pulse Resp BP Pulse Ox 98.0 F 106 H 18 105/68 95 02/03/20 12:00 02/03/20 12:00 02/03/20 12:00 02/03/20 12:00 02/03/20 12:00 Period Temp Pulse Resp BP Sys/Garcia Pulse Ox Last 24 Hr 97.0 F-98.4 F 92-107 16-27 96-134/68-92 91-98 Intake and Output 02/02/20 02/03/20 02/03/20 21:59 05:59 13:59 Intake Total 600 600 Output Total 100 700 150 Balance -100 -100 450 Weight 88.536 kg Intake & Output: Intake & Output 02/02/20 02/03/20 02/03/20 21:59 05:59 13:59 Intake Total 600 600 Output Total 100 700 150 Balance -100 -100 450 Weight 88.536 kg Intake: Oral 600 600 Output: Void Amount 100 700 150 Other: Meal Dinner Lunch Percent of Meal Consumed 100% 100% Feeding Ability Independent Urine Appearance Clear Urine Color Bright Yellow # Voids 1 Exam: General: Alert, Awake, No acute Distress Eyes/N/T: EOMI, Head/Neck: neck supple, CV: RRR, No murmurs, normal s1/s2 Pulm: no wheezing Abd: soft, nontender, +BS x4 Ext: no clubbing/cyanosis, b/l LE edema Neuro: Alert, no focal deficits, moves all extremities, Skin: warm/dry OBJ DATA Labs CBC & Chem 7: 02/03/20 04:42 02/03/20 04:42 Labs: Abnormal Lab Results 02/03/20 02/03/20 02/02/20 04:42 04:42 10:28 Seg Neutrophils % 79 H Lymphocytes % 12 L Metamyelocytes % 2 H Carbon Dioxide 19 L Anion Gap 20.0 H BUN 28 H Glucose 289 H Uric Acid 13.0 H Phosphorus 4.6 H GGT 49 H ALT NT-Pro-B Natriuret Pep Triglycerides 265 H Urine Protein 30 A Urine Bacteria Few A Hyaline Casts 3 H 02/02/20 09:33 Seg Neutrophils % Lymphocytes % Metamyelocytes % Carbon Dioxide 19 L Anion Gap BUN 24 H Glucose 203 H Uric Acid Phosphorus GGT ALT 42 H NT-Pro-B Natriuret Pep 6089.0 H Triglycerides Urine Protein Urine Bacteria Hyaline Casts Meds: Medications Acetaminophen (Tylenol) 650 mg PO Q4-6HP PRN; Protocol PRN Reason: Per Pain Protocol/Fever > 101 Last Admin: 02/02/20 20:25 Dose: 650 mg Documented by: Albuterol/Ipratropium (Duoneb) 3 ml NEB Q4HRT [facility] Last Admin: 02/03/20 11:25 Dose: 3 ml Documented by: Aspirin (Aspirin) 81 mg PO DAILY [facility] Last Admin: 02/03/20 08:56 Dose: 81 mg Documented by: Bisacodyl (Dulcolax) 10 mg PA Q2-3DAYS PRN PRN Reason: Constipation Budesonide (Pulmicort) 0.5 mg NEB Q12 [facility] Last Admin: 02/03/20 07:29 Dose: 0.5 mg Documented by: Dextrose (Dextrose 50%) 0 ml IV UD PRN PRN Reason: Hypoglycemia Diagnostic Test (Pha) (Accu-Chek) 1 each FS ACHS [facility] Last Admin: 02/03/20 11:20 Dose: 1 each Documented by: Docusate Sodium (Colace) 100 mg PO BID [facility] Last Admin: 02/03/20 08:55 Dose: 100 mg Documented by: Furosemide (Lasix) 40 mg PO QAM [facility] Last Admin: 02/03/20 08:55 Dose: 40 mg Documented by: Glucose (Insta-Glucose) 15 gm PO PRN PRN PRN Reason: Hypoglycemia Guaifenesin/Codeine Phosphate (Robitussin Ac) 10 ml PO Q4HP PRN PRN Reason: Cough Heparin Sodium (Porcine) (Heparin) 5,000 unit SQ Q12 [facility] Last Admin: 02/03/20 08:56 Dose: 5,000 unit Documented by: Hydralazine HCl (Apresoline) 10 mg IV Q4-6HP PRN PRN Reason: Hypertension Acetaminophen (Ofirmev) 650 mg in 65 mls @ 130 mls/hr IV Q6HP PRN; Protocol PRN Reason: Per Pain Protocol/Fever > 101 Magnesium Sulfate (Magnesium Sulfate) 2 gm in 50 mls @ 50 mls/hr IV UD PRN PRN Reason: MG = or < 1.7 Insulin Glargine (Lantus) 5 unit SQ QDAY [facility] Last Admin: 02/03/20 08:57 Dose: 5 units Documented by: Insulin Human Lispro (Humalog) 0 unit SQ [facility]; Protocol Last Admin: 02/03/20 11:32 Dose: 6 unit Documented by: Iron Carb/Multivit/Automotive Parts Clerk/Folic Acid (Multivitamin W/Minerals) 1 tab PO DAILY [facility] Last Admin: 02/03/20 08:55 Dose: 1 tab Documented by: Losartan Potassium (Cozaar) 25 mg PO QDAY [facility] Last Admin: 02/03/20 08:54 Dose: 25 mg Documented by: Melatonin (Melatonin 3mg Tablet) 3 mg PO HSP PRN PRN Reason: Insomnia Last Admin: 02/02/20 20:25 Dose: 3 mg Documented by: Methylprednisolone Sodium Succinate (Solu-Medrol) 60 mg IV Q12 [facility] Last Admin: 02/03/20 08:56 Dose: 60 mg Documented by: Metoprolol Succinate (Toprol Xl) 6.25 mg PO DAILY [facility] Last Admin: 02/03/20 09:18 Dose: 6.25 mg Documented by: Metoprolol Tartrate (Lopressor) 5 mg IV Q5M PRN PRN Reason: Heart Rate > 140 bpm Ondansetron HCl (Zofran Odt) 4 mg SL Q4-6HP PRN; Protocol PRN Reason: Nausea And Vomiting Ondansetron HCl (Zofran) 4 mg IV Q4-6HP PRN; Protocol PRN Reason: Nausea And Vomiting Polyethylene Glycol (Miralax) 17 gm PO DAILYP PRN PRN Reason: Constipation Potassium Chloride (Kdur) 20 meq PO QAMCC [facility] Last Admin: 02/03/20 08:55 Dose: 20 meq Documented by: Potassium Chloride (Klor-Con) 40 meq PO DAILYP PRN PRN Reason: K+ < 3.5 Senna/Docusate Sodium (Senna Plus Tablet) 1 tab PO HS [facility] Last Admin: 02/02/20 20:09 Dose: 1 tab Documented by: Sitagliptin Phosphate (Januvia) 100 mg PO DAILY [facility] Last Admin: 02/03/20 08:55 Dose: 100 mg Documented by: Sodium Chloride (Saline Flush) 10 ml IV Q8 [facility] Last Admin: 02/03/20 04:50 Dose: 10 ml Documented by: A/P Narrative A/P Narrative: A: *Acute hypoxic respiratory failure: -Patient off oxygen. Much improved since admission. *AECOPD: -Patient was a longtime smoker but quit recently. *Acute decompensated systolic CHF: -preliminary echo review suggestive of EF 30%. Await final echo read -Start beta-carmelo. Patient already on ARB. *DM type II: *HTN: home ARB *Chronic lymphedema: on home dose Lasix Plan: -Await echocardiogram -Continue steroids (wean) and bronchodilators -Start beta-carmelo, optimize dosing based on echo findings. -Continue home lasix -continue basal prandial insulin/CC diet -Discharge planning likely in 24 to 48 hours -ppx: heparin Time Spent With Patient Time: Total time spent is greater than 50% in coordination of care (as documented) at patient's floor/unit and/or counseling patient:
--- NOTE | 2020-02-03 13:53 | Discharge Summary ---
Discharge Provider Provider Patient information: Note initiated : 02/03/20 at 1:51 pm Service Date, if different from initiated Date: [] Patient: Cait Reyes 64 y/o F admitted on 02/02/20 for Chest Pain . Chief Complaint: [] Date of admission: 02/02/20 14:44 Discharge date: 02/04/20 Primary care physician: Doyle Crawford Consults: 02/02/20 Consult to Physician [CONS] Stat Comment: Consulting Provider: Osman Prado Reason For Exam: Physician to Consult Discharge Meds Discharge Medications Home Medications aspirin [Adult Low Dose Aspirin] 81 mg PO DAILY 04/25/16 [History Confirmed 02/02/20 Last Taken Unknown] furosemide 40 mg PO QAM #3 tab 01/20/20 [Rx Confirmed 02/02/20 Last Taken Unknown] potassium chloride 20 meq PO QDAY #3 tab 01/20/20 [Rx Confirmed 02/02/20 Last Taken Unknown] acetaminophen 325 mg tablet 650 mg PO Q4H PRN 01/30/20 [History Confirmed 02/02/20 Last Taken Unknown] docusate sodium 100 mg capsule 100 mg PO BID cap 01/30/20 [History Confirmed 02/02/20 Last Taken Unknown] insulin detemir U-100 100 unit/mL (3 mL) subcutaneous pen 5 unit SUB-Q QDAY ml 01/30/20 [History Confirmed 02/02/20 Last Taken Unknown] multivitamin with minerals 1 tab PO QDAY 01/30/20 [History Confirmed 02/02/20 Last Taken Unknown] fluticasone propion-salmeterol [Advair Diskus] 1 puff INH BID #1 ea 02/04/20 [Rx Last Taken Unknown] losartan 12.5 mg PO QDAY #10 tab 02/04/20 [Rx Last Taken Unknown] metoprolol succinate 12.5 mg PO DAILY #30 tab 02/04/20 [Rx Last Taken Unknown] COURSE Hospital Course Hospital course: Interval history: History of present illness: Ms. Reyes is a 64 year old F who lives fairly independently at home and was in her baseline state of health of less than 2 weeks prior to presentation when she started experiencing progressive dyspnea initially on maximal exertion dyspnea at rest by the day of presentation. She endorses to associated orthopnea but denies productive cough/sputum. She denies fever chills. She denies changes in medication or excessive salt diet or missing her regular medications. She endorses to bilateral lower extremity swelling/abdominal fullness and ache. Last 24 hours she has not been able to sleep or lie down and has been short of breath even at rest. She has been on Lasix but has not helped the symptoms Initial work-up in the ER with a CT was unremarkable except for right heart strain. Subsequently hospitalist service was consulted for evaluation and admission in light of progressive shortness of breath/orthopnea At the time of evaluation patient is alert and respond to commands. She denies sick contacts. She endorses to history as above. 02/02-patient doing a lot better. Improved shortness of breath. On room air. Able to tolerate diet. Ambulating. Await echocardiogram. Preliminary EF 30%. Await final results. Start beta-carmelo/MAGALY inhibitor. 8 beat of V. tach around 4 AM. Ongoing diuresis. 02/03 Patient slept well. On room air. Feels her shortness of breath is at baseline. She has a follow-up appointment with cardiology tomorrow. And also appointment with pulmonology. Patient is diagnosed gnosis of COPD and has a rescue inhaler but has no long acting inhalers. A: *Acute hypoxic respiratory failure: -Patient off oxygen. Much improved since admission. *AECOPD: -Patient was a longtime smoker but quit recently. *Acute decompensated systolic CHF: -EF 40% -Start beta-carmelo. Patient already on ARB. *Mod-Severe MR and TR *DM type II: A1c 7.6 *HTN: home ARB Discharge diagnosis: Acute hypoxic respiratory failure COPD CHF diabetes hypertension Time Spent with Patient Time attestation: Total time spent providing and/or coordinating discharge services: Time spent: Greater than 30 minutes EXAM Constitutional Vitals: Temp Pulse Resp BP Pulse Ox 98.0 F 106 H 18 105/68 95 02/03/20 12:02/03/20 12:00 02/03/20 12:02/03/20 12:02/03/20 12:00 Discharge Data Data Completed and Pending Labs on day of discharge: Labs from last 24 hours 02/03/20 02/03/20 04:42 04:42 WBC 5.8 RBC 4.15 Hgb 12.2 Hct 37.3 MCV 89.9 MCH 29.4 MCHC 32.7 RDW 13.9 Plt Count 219 MPV 9.6 Total Counted 100 Seg Neutrophils % 79 H Band Neutrophils % 6 Lymphocytes % 12 L Monocytes % (Manual) 1 Metamyelocytes % 2 H Platelet Estimate Normal RBC Morphology Normal Sodium 136 Potassium 3.6 Chloride 97 Carbon Dioxide 19 L Anion Gap 20.0 H BUN 28 H Creatinine 1.0 GFR Calculation 59 Glucose 289 H Uric Acid 13.0 H Calcium 8.9 Phosphorus 4.6 H Magnesium 1.7 Total Bilirubin 0.7 Direct Bilirubin < 0.2 GGT 49 H AST 29 ALT 40 Alkaline Phosphatase 103 Lactate Dehydrogenase 211 Total Protein 6.7 Albumin 4.1 Globulin 2.6 Albumin/Globulin Ratio 1.6 Triglycerides 265 H Preliminary micro results at discharge 02/02/20 10:28 Urine Culture - Preliminary Urine - Clean Void Mid-Stream Discharge Plan Patient/Caregiver Discharge Instructions Activity: increase activity as tolerated Diet: Consistent Carbohydrate Activity Restrictions/Additional Instructions: Follow-up with film splicer as scheduled. Follow-up with flight attendant as scheduled Prescriptions: New losartan 25 mg tablet 12.5 mg PO QDAY Qty: 10 RF: 0 fluticasone propion-salmeterol [Advair Diskus] 250-50 mcg/dose Blister With Device 1 puff INH BID Qty: 1 RF: 0 metoprolol succinate 25 mg Tablet Extended Release 24 Hr 12.5 mg PO DAILY Qty: 30 RF: 0 Continued acetaminophen 325 mg tablet 650 mg PO Q4H PRN (Reason: Pain) RF: 0 Levemir FlexTouch U-100 Insuln 100 unit/mL (3 mL) insulin pen 5 unit SUB-Q QDAY RF: 0 multivitamin with minerals 1 tab PO QDAY RF: 0 aspirin [Adult Low Dose Aspirin] 81 MG tablet,delayed release (DR/EC) 81 mg PO DAILY RF: 0 docusate sodium [Stool Softener] 100 mg capsule 100 mg PO BID RF: 0 furosemide 40 mg tablet 40 mg PO QAM Qty: 3 RF: 0 potassium chloride 20 mEq tablet extended release 20 meq PO QDAY Qty: 3 RF: 0 Discontinued losartan 25 mg tablet 25 mg PO QDAY RF: 0 Follow Up Plan Follow up with: Doyle Crawford MD [Primary Care Provider] - Patient Disposition: Home Health Service Prognosis: Fair Rehab Potential: Fair Overall status at discharge: patient is progressing back to baseline Discharge Orders: Discharge Order (Routine); Ordered 02/04/20 Ordered By: Clay Jordan
[2020-02-03] MEDS: MAGNESIUM OXIDE 400 MG TABLET PO SCH ×2 (15:10→19:36)
[2020-02-03] MEDS: ACETAMINOPHEN 325 MG TABLET PO PRN (16:50)
[2020-02-03] MEDS: SENNOSIDES/DOCUSATE SODIUM 1 TAB TABLET PO SCH (19:36)
[2020-02-03] MEDS: methylPREDNISolone SOD SUCC 40 MG/ML VIAL IV SCH (21:08)
[2020-02-03] MEDS: MELATONIN 3 MG TABLET PO PRN (21:15)
[2020-02-04] MEDS: 0.9 % SODIUM CHLORIDE 10 ML SYRINGE IV SCH ×2 (04:20→13:58)
[2020-02-04] MEDS: IPRATROPIUM/ALBUTEROL 3 ML AMPUL.NEB NEB SCH ×2 (04:20→06:58)
[2020-02-04 06:34] LABS: Hematocrit 35.2 % (34.1-44.9); Hemoglobin 11.8 g/dL (11.2-15.7); Mean Cell Volume 89.3 fL (80.0-100.0); Mean Corpuscular HGB Conc 33.5 g/dL (31.0-36.0); Mean Platelet Volume 9.8 fL (7.4-10.4); Platelet Count 241 K/mcL (140-440); RBC 3.94 M/mcL (3.59-5.38); WBC 6.8 K/mcL (4.50-11.00)
[2020-02-04] MEDS: BUDESONIDE 0.5 MG/2 ML AMPUL.NEB NEB SCH (06:59)
[2020-02-04 07:08] LABS: Bilirubin,Direct < 0.2 mg/dL (0.0-0.3); Chloride 99 mmol/L (96-108)
[2020-02-04 07:09] LABS: ALT/SGPT 41 U/l (0-40); AST/SGOT 32 U/l (0-37); Albumin 4.5 gm/dL (3.2-5.2); Albumin/Globulin Ratio 1.9 (1.0-2.3); Alkaline Phosphatase 106 U/L (39-117); Bilirubin,Total 0.5 mg/dL (0.0-1.0); Blood Urea Nitrogen 37 mg/dl (8-23); Calcium 9.4 mg/dl (8.6-10.4); Carbon Dioxide 19 mmol/L (22-30); Globulin 2.4 gm/dL (2.2-3.7); Glomerular Filtration Rate 48; Glucose 299 mg/dL (70-105); Lactate Dehydrogenase 261 U/L (94-250); Triglycerides 288 mg/dl (<150); Uric Acid 11.9 mg/dL (2.5-8.0)
--- NOTE | 2020-02-04 07:20 | XRay Report ---
INDICATION: Chest pain TECHNIQUE: AP portable upright chest x-ray COMPARISON: Previous chest CT scan dated 02/02/2020, and chest x-rays dated 02/02/2020 and 01/20/2020 FINDINGS: Lungs:Lungs are negative. No focal pulmonary parenchymal infiltrate or mass Heart, vascular:There is cardiomegaly, unchanged. Pulmonary vascularity is prominent consistent with pulmonary congestion. No pulmonary edema. Mediastinum, dimas:No mediastinal widening. No hilar mass Pleura:No pleural fluid. No pleural-based mass or calcification Skeletal:Negative. IMPRESSION: 1. Cardiomegaly, unchanged. Prominent vascularity consistent with pulmonary congestion 2. No evidence for acute pulmonary edema or focal infiltrate Interpreted and Authenticated by: Adeel De Leon 02/04/20
[2020-02-04 07:38] LABS: Band Neutrophils % 5 % (0-10); Lymphocytes % 12 % (15-49); Monocytes % (Manual) 1 % (1-12); Platelet Estimate NORMAL (NORMAL); RBC Morphology NORMAL (NORMAL); Segmented Neutrophils % 82 % (38-78)
[2020-02-04] MEDS: POTASSIUM CHLORIDE 20 MEQ TABLET PO SCH (07:40)
[2020-02-04] MEDS: INSULIN LISPRO 1 UNIT/0.01 ML UNIT SQ SCH ×2 (07:40→11:34)
--- NOTE | 2020-02-04 07:52 | Internal Med Progress Note ---
SUBJECTIVE Subjective Patient information: Note initiated : 02/04/20 at 7:48 am Service Date, if different from initiated Date: [] Patient: Cait Reyes 64 y/o F admitted on 02/02/20 for Chest Pain . Chief Complaint: [] Interval history: History of present illness: Ms. Reyes is a 64 year old F who lives fairly independently at home and was in her baseline state of health of less than 2 weeks prior to presentation when she started experiencing progressive dyspnea initially on maximal exertion dyspnea at rest by the day of presentation. She endorses to associated orthopnea but denies productive cough/sputum. She denies fever chills. She denies changes in medication or excessive salt diet or missing her regular medications. She endorses to bilateral lower extremity swelling/abdominal fullness and ache. Last 24 hours she has not been able to sleep or lie down and has been short of breath even at rest. She has been on Lasix but has not helped the symptoms Initial work-up in the ER with a CT was unremarkable except for right heart strain. Subsequently hospitalist service was consulted for evaluation and admission in light of progressive shortness of breath/orthopnea At the time of evaluation patient is alert and respond to commands. She denies sick contacts. She endorses to history as above. 02/02-patient doing a lot better. Improved shortness of breath. On room air. Able to tolerate diet. Ambulating. Await echocardiogram. Preliminary EF 30%. Await final results. Start beta-carmelo/MAGALY inhibitor. 8 beat of V. tach around 4 AM. Ongoing diuresis. 02/03 Patient slept well. On room air. Feels her shortness of breath is at baseline. She has a follow-up appointment with cardiology tomorrow. And also appointment with pulmonology. Patient is diagnosed gnosis of COPD and has a rescue inhaler but has no long acting inhalers. Review of Systems: denies headache/fever/chills/nausea/vomiting/chest pain/diarrhea. Otherwise see above. Constitutional Vitals: Vital Signs Temp Pulse Resp BP Pulse Ox 97.5 F 94 H 18 109/78 96 02/04/20 06:53 02/04/20 07:11 02/04/20 07:11 02/04/20 06:53 02/04/20 06:59 Period Temp Pulse Resp BP Sys/Garcia Pulse Ox Last 24 Hr 97.5 F-98.3 F 94-106 16-18 105-120/68-81 93-96 Intake and Output 02/03/20 02/04/20 02/04/20 21:59 05:59 13:59 Intake Total 180 600 Output Total 625 500 Balance -445 100 Weight 90.86 kg Intake & Output: Intake & Output 02/03/20 02/04/20 02/04/20 21:59 05:59 13:59 Intake Total 180 600 Output Total 625 500 Balance -445 100 Weight 90.86 kg Intake: Oral 180 600 Output: Void Amount 625 500 Other: Meal Dinner Percent of Meal Consumed 100% Feeding Ability Independent Stool Size Small Stool Color Brown Stool Consistency Soft Exam: General: Alert, Awake, No acute Distress Eyes/N/T: EOMI, Head/Neck: neck supple, CV: RRR, No murmurs, normal s1/s2 Pulm: no rales/wheezing Abd: soft, nontender, +BS x4 Ext: no clubbing/cyanosis, no b/l LE edema Neuro: Alert, no focal deficits, moves all extremities, Skin: warm/dry OBJ DATA Labs CBC & Chem 7: 02/04/20 05:02 02/04/20 05:02 Labs: Abnormal Lab Results 02/04/20 02/04/20 02/03/20 05:02 05:02 04:42 Seg Neutrophils % 82 H Lymphocytes % 12 L Metamyelocytes % Carbon Dioxide 19 L 19 L Anion Gap 17.0 H 20.0 H BUN 37 H 28 H Creatinine 1.2 H Glucose 299 H 289 H Uric Acid 11.9 H 13.0 H Phosphorus 4.6 H GGT 51 H 49 H ALT 41 H Lactate Dehydrogenase 261 H NT-Pro-B Natriuret Pep Triglycerides 288 H 265 H Urine Protein Urine Bacteria Hyaline Casts 02/03/20 02/02/20 02/02/20 04:42 10:28 09:33 Seg Neutrophils % 79 H Lymphocytes % 12 L Metamyelocytes % 2 H Carbon Dioxide 19 L Anion Gap BUN 24 H Creatinine Glucose 203 H Uric Acid Phosphorus GGT ALT 42 H Lactate Dehydrogenase NT-Pro-B Natriuret Pep 6089.0 H Triglycerides Urine Protein 30 A Urine Bacteria Few A Hyaline Casts 3 H Meds: Medications Acetaminophen (Tylenol) 650 mg PO Q4-6HP PRN; Protocol PRN Reason: Per Pain Protocol/Fever > 101 Last Admin: 02/03/20 16:50 Dose: 650 mg Documented by: Albuterol/Ipratropium (Duoneb) 3 ml NEB Q4HRT [facility] Last Admin: 02/04/20 06:58 Dose: 3 ml Documented by: Aspirin (Aspirin) 81 mg PO DAILY [facility] Last Admin: 02/03/20 08:56 Dose: 81 mg Documented by: Bisacodyl (Dulcolax) 10 mg WA Q2-3DAYS PRN PRN Reason: Constipation Budesonide (Pulmicort) 0.5 mg NEB Q12 [facility] Last Admin: 02/04/20 06:59 Dose: 0.5 mg Documented by: Dextrose (Dextrose 50%) 0 ml IV UD PRN PRN Reason: Hypoglycemia Diagnostic Test (Pha) (Accu-Chek) 1 each FS [facility] Last Admin: 02/04/20 07:13 Dose: 1 each Documented by: Docusate Sodium (Colace) 100 mg PO BID [facility] Last Admin: 02/03/20 19:36 Dose: 100 mg Documented by: Furosemide (Lasix) 40 mg PO QAM [facility] Last Admin: 02/03/20 08:55 Dose: 40 mg Documented by: Glucose (Insta-Glucose) 15 gm PO PRN PRN PRN Reason: Hypoglycemia Guaifenesin/Codeine Phosphate (Robitussin Ac) 10 ml PO Q4HP PRN PRN Reason: Cough Heparin Sodium (Porcine) (Heparin) 5,000 unit SQ Q12 [facility] Last Admin: 02/03/20 21:07 Dose: 5,000 unit Documented by: Hydralazine HCl (Apresoline) 10 mg IV Q4-6HP PRN PRN Reason: Hypertension Acetaminophen (Ofirmev) 650 mg in 65 mls @ 130 mls/hr IV Q6HP PRN; Protocol PRN Reason: Per Pain Protocol/Fever > 101 Magnesium Sulfate (Magnesium Sulfate) 2 gm in 50 mls @ 50 mls/hr IV UD PRN PRN Reason: MG = or < 1.7 Insulin Glargine (Lantus) 5 unit SQ QDAY [facility] Last Admin: 02/03/20 08:57 Dose: 5 units Documented by: Insulin Human Lispro (Humalog) 0 unit SQ ACHS [facility]; Protocol Last Admin: 02/04/20 07:40 Dose: 4 unit Documented by: Iron Carb/Multivit/Crawford/Folic Acid (Multivitamin W/Minerals) 1 tab PO DAILY [facility] Last Admin: 02/03/20 08:55 Dose: 1 tab Documented by: Losartan Potassium (Cozaar) 12.5 mg PO QDAY [facility] Magnesium Oxide (Magnesium Oxide) 400 mg PO BID [facility] Last Admin: 02/03/20 19:36 Dose: 400 mg Documented by: Melatonin (Melatonin 3mg Tablet) 3 mg PO HSP PRN PRN Reason: Insomnia Last Admin: 02/03/20 21:15 Dose: 3 mg Documented by: Methylprednisolone Sodium Succinate (Solu-Medrol) 20 mg IV Q12 [facility] Last Admin: 02/03/20 21:08 Dose: 20 mg Documented by: Metoprolol Succinate (Toprol Xl) 6.25 mg PO DAILY [facility] Last Admin: 02/03/20 09:18 Dose: 6.25 mg Documented by: Metoprolol Tartrate (Lopressor) 5 mg IV Q5M PRN PRN Reason: Heart Rate > 140 bpm Ondansetron HCl (Zofran Odt) 4 mg SL Q4-6HP PRN; Protocol PRN Reason: Nausea And Vomiting Ondansetron HCl (Zofran) 4 mg IV Q4-6HP PRN; Protocol PRN Reason: Nausea And Vomiting Polyethylene Glycol (Miralax) 17 gm PO DAILYP PRN PRN Reason: Constipation Potassium Chloride (Kdur) 20 meq PO QAMCC [facility] Last Admin: 02/04/20 07:40 Dose: 20 meq Documented by: Potassium Chloride (Klor-Con) 40 meq PO DAILYP PRN PRN Reason: K+ < 3.5 Senna/Docusate Sodium (Senna Plus Tablet) 1 tab PO HS [facility] Last Admin: 02/03/20 19:36 Dose: 1 tab Documented by: Sitagliptin Phosphate (Januvia) 100 mg PO DAILY [facility] Last Admin: 02/03/20 08:55 Dose: 100 mg Documented by: Sodium Chloride (Saline Flush) 10 ml IV Q8 [facility] Last Admin: 02/04/20 04:20 Dose: 10 ml Documented by: A/P Narrative A/P Narrative: A: *Acute hypoxic respiratory failure: -Patient off oxygen. Much improved since admission. *AECOPD: -Patient was a longtime smoker but quit recently. *Acute decompensated systolic CHF: -preliminary echo review suggestive of EF 30%. Await final echo read -Start beta-carmelo. Patient already on ARB. *DM type II: A1c 7.6 *HTN: home ARB *Chronic lymphedema: on home dose Lasix Plan: -Await echocardiogram -Continue steroids (wean) and bronchodilators -Start beta-carmelo(increase), hold ARB today -hold home lasix today and tomorrow -continue basal prandial insulin/CC diet -Discharge planning likely in 24 to 48 hours -ppx: heparin Time Spent With Patient Time: Total time spent is greater than 50% in coordination of care (as documented) at patient's floor/unit and/or counseling patient:
[2020-02-04] MEDS ORDERED: predniSONE 20 MG TABLET PO SCH (08:00)
[2020-02-04 08:37] LABS: Hemoglobin A1C 7.6 % HGB (4.0-6.0)
[2020-02-04] MEDS ORDERED: LOSARTAN 25 MG TABLET PO SCH (09:00)
[2020-02-04] MEDS ORDERED: INSULIN GLARGINE, HUMAN 1 UNIT/0.01 ML SQ SCH (09:00)
[2020-02-04] MEDS ORDERED: FLUTICASONE/SALMETEROL 250/50 INHALER #14 INH SCH (09:00)
[2020-02-04] MEDS ORDERED: METOPROLOL SUCCINATE 25 MG TAB.XL.24H PO SCH (09:00)
[2020-02-04] MEDS: MAGNESIUM OXIDE 400 MG TABLET PO SCH (09:47)
[2020-02-04] MEDS: MULTIVIT,THER IRON,CA,FA & MIN 1 TABLET PO SCH (09:47)
[2020-02-04] MEDS: sitaGLIPtin 100 MG TABLET PO SCH (09:47)
[2020-02-04] MEDS: DOCUSATE SODIUM 100 MG CAPSULE PO SCH (09:47)
[2020-02-04] MEDS: ASPIRIN 81 MG TAB.CHEW PO SCH (09:48)
[2020-02-04] MEDS: HEPARIN 5,000 UNIT/ML VIAL SQ SCH (09:48)
[2020-02-04] MEDS: methylPREDNISolone SOD SUCC 40 MG/ML VIAL IV SCH (11:23)
[2020-02-04] MEDS ORDERED: LEVALBUTEROL 0.63 MG/3 ML AMPUL.NEB NEB SCH (13:00)
[2020-02-04] MEDS ORDERED: IPRATROPIUM 2.5 ML AMPUL.NEB NEB SCH (13:00)
== END 2020-02-04 14:41 | disposition home health service (06) ==
LOC: ED 08:39 → MEDSUR 08:39
PROVIDERS: ADMIT Internal Medicine; ATTEND Internal Medicine

== ENCOUNTER 2020-03-25 09:23 | Inpatient (IN) ==
[2020-03-25] MEDS ORDERED: FUROSEMIDE 100 MG/10 ML VIAL IV ONE (09:45)
--- NOTE | 2020-03-25 09:55 | Emergency Department Note ---
HPI General Chief complaint: Chest Pain Stated complaint: Chest pain, bilat lower leg swellingq Time Seen by Provider: 03/25/20 09:40 Source: EMS Mode of arrival: ambulatory Limitations: no limitations History of Present Illness HPI Narrative: Narrative: 64-year old patient presenting to the emergency room with a primary chief complaint of chest pain. Patient reports has been having chest pain over the past couple days intermittent. Patient has known exacerbating factor of feeling short of breath with exertion. Chest pain is described as tightness pressure. Patient with ameliorating factor of diuretics. Total duration of symptoms was about 2 days intermittently lasting several minutes at a time. Patient was assessed for common risk factors for cardiac ischemia including existing or known atherosclerosis, HTN, DM, obesity, smoking, family history and elevated cholesterol. Associated symptoms of syncope, palpitations, diaphoresis, dyspnea are also assessed and were positive for dyspnea otherwise negative. Related Data Home Medications Medication Instructions Recorded Confirmed aspirin [Adult Low Dose Aspirin] 81 mg PO DAILY 04/25/16 03/25/20 insulin detemir U-100 100 unit/mL 15 unit SUB-Q QDAY ml 01/30/20 03/25/20 (3 mL) subcutaneous pen albuterol sulfate 90 mcg/actuation See Rx Instructions INHALATION 03/21/20 03/25/20 aerosol inhaler .Q4-6H PRN g polyethylene glycol See Rx Instructions MISCELLANE BID 03/21/20 03/25/20 potassium chloride 10 mEq 10 meq PO DAILY 03/21/20 03/25/20 capsule,extended release furosemide 20 - 40 mg PO DAILY 03/25/20 03/25/20 levothyroxine 50 mcg PO QDAY 03/25/20 03/25/20 Previous Rx's Medication Instructions Recorded ondansetron 4 mg PO Q6H PRN #14 tab 03/09/20 Allergies Allergy/AdvReac Type Severity Reaction Status Date / Time hydromorphone [From Dilaudid] AdvReac Mild Vomiting Verified 03/25/20 09:32 Steroids Allergy Mild Rash Uncoded 03/09/20 20:13 Review of Systems ROS ROS Narrative: Narrative: All systems ED: reviewed and negative except as stated. PFSH Narrative Patient History Narrative: Narrative: Medical/Surgical/Family History All Active Problems (Updated 03/25/20 @ 14:29 by Amish Walsh MD) Congestive heart failure (Acute) Bilateral edema of lower extremity (Acute) No pertinent past surgical history (Chronic) Acute renal failure syndrome (Chronic) Elevated LFTs (Acute) Cerumen impaction (Acute) Abdominal pain (Acute) Edema of abdominal wall (Acute) Right hand pain (Chronic) Scabies (Chronic) Lower respiratory infection (Chronic) URI (upper respiratory infection) (Chronic) Sprain of right ankle (Chronic) Mitral valve regurgitation (Chronic) Pharyngitis (Chronic) Bronchitis (Chronic) Plantar fasciitis of right foot (Chronic) Periostitis of ankle (Chronic) Bilateral foot pain (Chronic) Lateral epicondylitis of left elbow (Chronic) Pain in elbow (Chronic) Olecranon bursitis, right elbow (Chronic) Plantar fasciitis, left (Chronic) Candidiasis of skin (Chronic) Lichen planus (Chronic) Angular cheilitis (Chronic) Regular astigmatism (Chronic) Myopia (Chronic) Right foot pain (Chronic) Cirrhosis of liver (Chronic) Knee pain (Chronic) Heart failure (Chronic) Vitamin D deficiency (Chronic) Proteinuria (Chronic) Hemorrhoids without complication (Chronic) Hypertriglyceridemia (Chronic) Essential hypertension (Chronic) Depression (Chronic) Alcoholism (Chronic) Obese (Chronic) Chronic nasal congestion (Chronic) Cough (Chronic) Diabetes mellitus (Chronic) COPD (chronic obstructive pulmonary disease) (Chronic) Lung nodule seen on imaging study (Chronic) Chest pain (Chronic) Congestive heart failure (Chronic) Abdominal pain (Chronic) Acute bronchitis (Chronic) Diverticulitis (Chronic) Atypical chest pain (Chronic) Gastritis (Chronic) Urinary tract infection (Chronic) Constipation (Chronic) Viral syndrome (Chronic) Medical History (Updated 03/25/20 @ 14:29 by Amish Walsh MD) Abdominal pain (Chronic) Acute bronchitis (Chronic) Acute renal failure syndrome (Chronic) Alcoholism (Chronic) Angular cheilitis (Chronic) Atypical chest pain (Chronic) Bilateral foot pain (Chronic) Bronchitis (Chronic) Candidiasis of skin (Chronic) Chest pain (Chronic) Chronic nasal congestion (Chronic) Cirrhosis of liver (Chronic) Congestive heart failure (Chronic) Constipation (Chronic) Cough (Chronic) Depression (Chronic) Diverticulitis (Chronic) Essential hypertension (Chronic) Gastritis (Chronic) Heart failure (Chronic) Hemorrhoids without complication (Chronic) Hypertriglyceridemia (Chronic) Knee pain (Chronic) Lateral epicondylitis of left elbow (Chronic) Lichen planus (Chronic) of lips Lower respiratory infection (Chronic) Mitral valve regurgitation (Chronic) Myopia (Chronic) Obese (Chronic) Olecranon bursitis, right elbow (Chronic) Pain in elbow (Chronic) Periostitis of ankle (Chronic) Pharyngitis (Chronic) Plantar fasciitis of right foot (Chronic) Plantar fasciitis, left (Chronic) Proteinuria (Chronic) Regular astigmatism (Chronic) Right foot pain (Chronic) Right hand pain (Chronic) Scabies (Chronic) Sprain of right ankle (Chronic) Type 2 diabetes mellitus (Acute) URI (upper respiratory infection) (Chronic) Urinary tract infection (Chronic) Viral syndrome (Chronic) Vitamin D deficiency (Chronic) Surgical History (Updated 03/21/20 @ 12:09 by Kell Hernandez) No pertinent past surgical history (Chronic) Family History Other No pertinent family history Social History Smoking Status: Former smoker Alcohol Intake Frequency: former alcohol drinker Substance Use: does not use Exam Narrative Narrative: Narrative: General: Alert, interactive, appropriate Head: Atraumatic, normocephalic Eyes: Extraocular movements intact, sclera anicteric, no conjunctival injection Ears: Pinnae normal, no discharge Mouth: Oral mucosa moist, no acute swelling or evidence of infection Nares: No nasal discharge, patent bilaterally Neck: Trachea midline, full range of motion Chest: Initially patient tachypneic with symmetric symmetrical chest wall rise and some increased work of breathing Cardiovascular: Patient with excellent perfusion to the extremities; with out tachycardia does have normal blood pressure Skin: Patient without area of erythema, patient is without rash, no ascending lymphangitis or lymphadenopathy Extremities: Full range of motion joints, no obvious deformities Neuro: Alert, oriented x3, cranial nerves II through XII grossly intact, patient without lateralizing findings such as weakness, or abnormal reflexes Psychiatric: Normal affect, normal mood General Limitations: no limitations Course Vital Signs Vital signs: Vital Signs Temperature 97.4 F 03/25/20 09:24 Pulse Rate 98 H 03/25/20 09:24 Respiratory Rate 32 H 03/25/20 09:24 Blood Pressure 121/74 03/25/20 09:24 Pulse Oximetry (%) 100 03/25/20 09:24 Temperature 97.3 F 03/25/20 19:29 Pulse Rate 93 H 03/25/20 19:29 Respiratory Rate 16 09/07/20 19:29 Blood Pressure 92/62 03/25/20 19:29 Pulse Oximetry (%) 98 03/25/20 19:29 [facility] Narrative Medical decision making narrative: Narrative: This patient presented to the emergency department chest pain. In the emergency department patient was evaluated with laboratory/physical exam/history/EKG/troponin. Patient is in my medical opinion at this time low risk for pulmonary embolism. Evaluate for recent travel, surgery, history of blood clots, tachycardia, hypoxia, and tachypnea. PERC rule was considered patient at low risk. Chest x-ray obtained did not demonstrate pneumothorax, widened mediastinum suggestive dissection, or infiltration suggesting infection. Also considered gallbladder disease pancreatitis as possible abdominal causes for chest pain. Troponin test was negative. Patient's EKG did not suggest acute STEMI. There were no events noted on patient's telemetry while observed in the ED. The heart score was calculated in the following manner: History: Highly suspicious 2, moderately suspicious 1, slightly suspicious 0 0 EKG: Significant ST depression 2, nonspecific repolarization 1, normal 0 1 Age: Greater than 65 2, 45-65 1, less than 45 0 1 Risk factors: Greater than 3 risk factors 2, 1-3 risk factors 1, no risk factors 0 1 Troponin: Greater than 2 times normal 2, 1-2 times normal 1, normal limit 0 0 Total: 3 Though the combination of testing mentioned above does not completely rule out ACS is a possibility, this patient is low risk enough to be discharged home. Additionally informed them and if there chest pain returns or if they should develop any new or changing symptoms they should call 911 and return to the ED immediately. Lab Data Result diagrams: 03/25/20 09:40 03/25/20 09:40 Labs: Lab Results 03/25/20 03/25/20 03/25/20 Range/Units 09:40 09:40 09:40 WBC 5.5 (4.50-11.00) K/mcL RBC 5.12 (3.59-5.38) M/mcL Hgb 13.6 (11.2-15.7) g/dL Hct 42.9 (34.1-44.9) % MCV 83.8 (80.0-100.0) fL MCH 26.6 (26.0-34.0) pg MCHC 31.7 (31.0-36.0) g/dL RDW 18.1 H (11.5-14.5) % Plt Count 121 L (140-440) K/mcL MPV 10.3 (7.4-10.4) fL Gran % 65.5 (38.0-78.0) % Lymph % (Auto) 22.4 (15.5-49.0) % [place] % (Auto) 10.3 (1.0-12.0) % Eos % (Auto) 1.1 (0.0-7.0) % Baso % (Auto) 0.7 (0.0-2.0) % Gran # 3.57 (1.80-8.00) K/mcL Lymph # (Auto) 1.22 L (1.50-4.80) K/mcL [place] # (Auto) 0.56 (0.10-0.90) K/mcL Eos # (Auto) 0.06 (0.00-0.70) K/mcL Baso # (Auto) 0.04 (0.00-0.30) K/mcL Sodium 134 (133-145) mmol/L Potassium 4.5 (3.3-5.1) mmol/L Chloride 96 (96-108) mmol/L Carbon Dioxide 17 L (22-30) mmol/L Anion Gap 21.0 H (8-16) BUN 58 H (8-23) mg/dl Creatinine 1.9 H (0.6-1.1) mg/dl GFR Calculation 27 Glucose 137 H (70-105) mg/dL Calcium 9.7 (8.6-10.4) mg/dl Total Bilirubin 3.7 H (0.0-1.0) mg/dL AST 234 H (0-37) U/l ALT 175 H (0-40) U/l Alkaline Phosphatase 191 H (39-117) U/L Troponin T < 0.01 (0-0.03) ng/ml NT-Pro-B Natriuret Pep 3227.0 H (0-125) pg/ml Total Protein 6.1 (5.9-8.4) gm/dL Albumin 3.6 (3.2-5.2) gm/dL Globulin 2.5 (2.2-3.7) gm/dL Albumin/Globulin Ratio 1.4 (1.0-2.3) Urine Color Urine Appearance Urine pH (5.0-9.0) Ur Specific [place] (1.000-1.035) Urine Protein (NEG) mg/dL Urine Glucose (UA) (NEG) mg/dL Urine Ketones (NEG) mg/dL Urine Occult Blood (<0.03) mg/dL Urine Nitrate (NEG) Urine Bilirubin (NEG) mg/dL Urine Urobilinogen (NEG) mg/dL Ur Leukocyte Esterase (NEG) /uL Urine RBC (0-1) /hpf Urine WBC (0-4) /hpf Ur Squamous Epith Cells (0-4) /hpf Urine Bacteria (0) /hpf Ur Culture Indicated? 03/25/20 Range/Units 14:45 WBC (4.50-11.00) K/mcL RBC (3.59-5.38) M/mcL Hgb (11.2-15.7) g/dL Hct (34.1-44.9) % MCV (80.0-100.0) fL MCH (26.0-34.0) pg MCHC (31.0-36.0) g/dL RDW (11.5-14.5) % Plt Count (140-440) K/mcL MPV (7.4-10.4) fL Gran % (38.0-78.0) % Lymph % (Auto) (15.5-49.0) % [place] % (Auto) (1.0-12.0) % Eos % (Auto) (0.0-7.0) % Baso % (Auto) (0.0-2.0) % Gran # (1.80-8.00) K/mcL Lymph # (Auto) (1.50-4.80) K/mcL [place] # (Auto) (0.10-0.90) K/mcL Eos # (Auto) (0.00-0.70) K/mcL Baso # (Auto) (0.00-0.30) K/mcL Sodium (133-145) mmol/L Potassium (3.3-5.1) mmol/L Chloride (96-108) mmol/L Carbon Dioxide (22-30) mmol/L Anion Gap (8-16) BUN (8-23) mg/dl Creatinine (0.6-1.1) mg/dl GFR Calculation Glucose (70-105) mg/dL Calcium (8.6-10.4) mg/dl Total Bilirubin (0.0-1.0) mg/dL AST (0-37) U/l ALT (0-40) U/l Alkaline Phosphatase (39-117) U/L Troponin T (0-0.03) ng/ml NT-Pro-B Natriuret Pep (0-125) pg/ml Total Protein (5.9-8.4) gm/dL Albumin (3.2-5.2) gm/dL Globulin (2.2-3.7) gm/dL Albumin/Globulin Ratio (1.0-2.3) Urine Color Straw Urine Appearance Clear Urine pH 5.0 (5.0-9.0) Ur Specific [place] 1.006 (1.000-1.035) Urine Protein Neg (NEG) mg/dL Urine Glucose (UA) Negative (NEG) mg/dL Urine Ketones Neg (NEG) mg/dL Urine Occult Blood 0.2 A (<0.03) mg/dL Urine Nitrate Neg (NEG) Urine Bilirubin Neg (NEG) mg/dL Urine Urobilinogen Neg (NEG) mg/dL Ur Leukocyte Esterase Neg (NEG) /uL Urine RBC 1 (0-1) /hpf Urine WBC 1 (0-4) /hpf Ur Squamous Epith Cells 0 (0-4) /hpf Urine Bacteria 0 (0) /hpf Ur Culture Indicated? No Discharge Plan Patient/Caregiver Discharge Instructions Pt seen by [employer]OURNEY[employer] WIREMAN/PA only: No Clinical Impression: Bilateral edema of lower extremity Congestive heart failure Qualifiers: Heart failure type: combined systolic and diastolic Heart failure chronicity: acute on chronic Qualified Code(s): I50.43 - Acute on chronic combined systolic (congestive) and diastolic (congestive) heart failure Patient Disposition: Xfer As Inpt ([facility]) Condition: Fair Discharge Date/Time: 03/25/20 17:27
[2020-03-25 10:55] LABS: Basophils # (Auto) 0.04 K/mcL (0.00-0.30); Basophils % (Auto) 0.7 % (0.0-2.0); Eosinophils # (Auto) 0.06 K/mcL (0.00-0.70); Eosinophils % (Auto) 1.1 % (0.0-7.0); Granulocytes % (Auto) 65.5 % (38.0-78.0); Hematocrit 42.9 % (34.1-44.9); Hemoglobin 13.6 g/dL (11.2-15.7); Lymphocytes # (Auto) 1.22 K/mcL (1.50-4.80); Lymphocytes % (Auto) 22.4 % (15.5-49.0); Mean Cell Volume 83.8 fL (80.0-100.0); Mean Corpuscular HGB Conc 31.7 g/dL (31.0-36.0); Mean Platelet Volume 10.3 fL (7.4-10.4); Monocytes # (Auto) 0.56 K/mcL (0.10-0.90); Monocytes % (Auto) 10.3 % (1.0-12.0); RBC 5.12 M/mcL (3.59-5.38); Red Cell Distribution Width 18.1 % (11.5-14.5); WBC 5.5 K/mcL (4.50-11.00)
[2020-03-25 10:59] LABS: Platelet Count 121 K/mcL (140-440)
[2020-03-25 11:42] LABS: ALT/SGPT 175 U/l (0-40); AST/SGOT 234 U/l (0-37); Albumin 3.6 gm/dL (3.2-5.2); Albumin/Globulin Ratio 1.4 (1.0-2.3); Alkaline Phosphatase 191 U/L (39-117); Bilirubin,Total 3.7 mg/dL (0.0-1.0); Blood Urea Nitrogen 58 mg/dl (8-23); Calcium 9.7 mg/dl (8.6-10.4); Carbon Dioxide 17 mmol/L (22-30); Chloride 96 mmol/L (96-108); Globulin 2.5 gm/dL (2.2-3.7); Glomerular Filtration Rate 27; Glucose 137 mg/dL (70-105)
--- NOTE | 2020-03-25 13:04 | XRay Report ---
CLINICAL INFORMATION: chest tightness, weight gain COMPARISON: 02/14/2020 FINDINGS: The heart is markedly enlarged, but unchanged from previous exam. Mediastinum is unremarkable. Upper lobe pulmonary vessels are mildly distended. There is no edema. Lungs are clear. No effusions. IMPRESSION: Mild CHF or volume overload Interpreted and Authenticated by: Adeel Rico 03/25/20
--- NOTE | 2020-03-25 16:22 | Internal Med History&Physical ---
HPI History of Present Illness Patient information: Note initiated : 03/25/20 at 4:10 pm Service Date, if different from initiated Date: [] Patient: Cait Reyes a 64 y/o F admitted on for Chest pain, bilat lower leg swellingq. Chief Complaint: [] History of present illness: Ms. Reyes is a 64 year old F Presents to the ED with weakness and worsening edema. She is been hospitalized several times this year. She is supposed to follow-up with pulmonology gastroenterology nephrology but has not done that yet. Says she has been taking her medications regularly. She says her PCP adjusted her Lasix to try to get off some fluid. Could not really give me a good time from when she saw him although I see a note in the system from February 13. She had episode nausea vomiting last night. He has poor appetite. Last admission in January she was discharged on a beta-carmelo and arm but I do not see that on her medication. Also has chronic abdominal pain she is also post to see Dr. Crawford the surgeon, believe. Review of Systems: Pertinent positives as above. Denies headache/fever/chills/nausea/vomiting/chest pain/cough/dyspnea/diarrhea. Remaining 10 point review of system reviewed negative above. PFSH PFSH All Active Problems (Updated 03/25/20 @ 14:29 by Amish Walsh MD) Congestive heart failure (Acute) Bilateral edema of lower extremity (Acute) No pertinent past surgical history (Chronic) Acute renal failure syndrome (Chronic) Elevated LFTs (Acute) Cerumen impaction (Acute) Abdominal pain (Acute) Edema of abdominal wall (Acute) Right hand pain (Chronic) Scabies (Chronic) Lower respiratory infection (Chronic) URI (upper respiratory infection) (Chronic) Sprain of right ankle (Chronic) Mitral valve regurgitation (Chronic) Pharyngitis (Chronic) Bronchitis (Chronic) Plantar fasciitis of right foot (Chronic) Periostitis of ankle (Chronic) Bilateral foot pain (Chronic) Lateral epicondylitis of left elbow (Chronic) Pain in elbow (Chronic) Olecranon bursitis, right elbow (Chronic) Plantar fasciitis, left (Chronic) Candidiasis of skin (Chronic) Lichen planus (Chronic) Angular cheilitis (Chronic) Regular astigmatism (Chronic) Myopia (Chronic) Right foot pain (Chronic) Cirrhosis of liver (Chronic) Knee pain (Chronic) Heart failure (Chronic) Vitamin D deficiency (Chronic) Proteinuria (Chronic) Hemorrhoids without complication (Chronic) Hypertriglyceridemia (Chronic) Essential hypertension (Chronic) Depression (Chronic) Alcoholism (Chronic) Obese (Chronic) Chronic nasal congestion (Chronic) Cough (Chronic) Diabetes mellitus (Chronic) COPD (chronic obstructive pulmonary disease) (Chronic) Lung nodule seen on imaging study (Chronic) Chest pain (Chronic) Congestive heart failure (Chronic) Abdominal pain (Chronic) Acute bronchitis (Chronic) Diverticulitis (Chronic) Atypical chest pain (Chronic) Gastritis (Chronic) Urinary tract infection (Chronic) Constipation (Chronic) Viral syndrome (Chronic) Medical History (Updated 03/25/20 @ 14:29 by Amish Walsh MD) Abdominal pain (Chronic) Acute bronchitis (Chronic) Acute renal failure syndrome (Chronic) Alcoholism (Chronic) Angular cheilitis (Chronic) Atypical chest pain (Chronic) Bilateral foot pain (Chronic) Bronchitis (Chronic) Candidiasis of skin (Chronic) Chest pain (Chronic) Chronic nasal congestion (Chronic) Cirrhosis of liver (Chronic) Congestive heart failure (Chronic) Constipation (Chronic) Cough (Chronic) Depression (Chronic) Diverticulitis (Chronic) Essential hypertension (Chronic) Gastritis (Chronic) Heart failure (Chronic) Hemorrhoids without complication (Chronic) Hypertriglyceridemia (Chronic) Knee pain (Chronic) Lateral epicondylitis of left elbow (Chronic) Lichen planus (Chronic) of lips Lower respiratory infection (Chronic) Mitral valve regurgitation (Chronic) Myopia (Chronic) Obese (Chronic) Olecranon bursitis, right elbow (Chronic) Pain in elbow (Chronic) Periostitis of ankle (Chronic) Pharyngitis (Chronic) Plantar fasciitis of right foot (Chronic) Plantar fasciitis, left (Chronic) Proteinuria (Chronic) Regular astigmatism (Chronic) Right foot pain (Chronic) Right hand pain (Chronic) Scabies (Chronic) Sprain of right ankle (Chronic) Type 2 diabetes mellitus (Acute) URI (upper respiratory infection) (Chronic) Urinary tract infection (Chronic) Viral syndrome (Chronic) Vitamin D deficiency (Chronic) Surgical History (Updated 03/21/20 @ 12:09 by Kell Hernandez) No pertinent past surgical history (Chronic) Family History Other No pertinent family history Social History (Updated 03/25/20 @ 16:13 by Clay oJrdan DO) household members: alone marital status: single occupational status: retired smoking status: Former smoker alcohol intake frequency: former alcohol drinker substance use type: does not use additional history: Past surgical history: Tonsillectomy appendectomy cholecystectomy Family history Unknown mother history father had heart failure Social history: Patient quit smoking several months ago and stopped drinking alcohol several months ago. Uses a cane and lives by herself MEDS/ALLERGIES Home Medications and Allergies Home Medications Medication Instructions Recorded Confirmed Type aspirin [Adult Low Dose Aspirin] 81 mg PO DAILY 04/25/16 03/25/20 History insulin detemir U-100 100 unit/mL 15 unit SUB-Q QDAY ml 01/30/20 03/25/20 History (3 mL) subcutaneous pen ondansetron 4 mg PO Q6H PRN #14 tab 03/09/20 03/25/20 Rx albuterol sulfate 90 mcg/actuation See Rx Instructions INHALATION 03/21/20 03/25/20 History aerosol inhaler .Q4-6H PRN g polyethylene glycol See Rx Instructions MISCELLANE BID 03/21/20 03/25/20 History potassium chloride 10 mEq 10 meq PO DAILY 03/21/20 03/25/20 History capsule,extended release furosemide 20 - 40 mg PO DAILY 03/25/20 03/25/20 History levothyroxine 50 mcg PO QDAY 03/25/20 03/25/20 History Allergies Allergy/AdvReac Type Severity Reaction Status Date / Time hydromorphone [From Dilaudid] AdvReac Mild Vomiting Verified 03/25/20 09:32 Steroids Allergy Mild Rash Uncoded 03/09/20 20:13 EXAM Constitutional Vitals: Temp Pulse Resp BP Pulse Ox 97.4 F 95 H 20 114/55 97 03/25/20 09:24 03/25/20 15:46 03/25/20 15:46 03/25/20 15:46 03/25/20 15:46 Exam: General: Alert, Awake, No acute Distress, obese Eyes/N/T: EOMI, PERRL, Head/Neck: neck supple, normocephalic atraumatic, JVD CV: Mildly tacky but regular, No murmurs, normal s1/s2 Pulm: Mild fine rails more on the right, no wheezing abd: soft, nontender, +BS x4 Ext: no clubbing/cyanosis, 2+ b/l LE edema Neuro: Alert, no focal deficits, moves all extremities, CN 2-12 grossly intact, symmetrical strength b/l upper/lower, sensations intact b/l upper/lower Skin: warm/dry DATA Data Completed and Pending Labs: Labs from last 24 hours 03/25/20 03/25/20 03/25/20 14:45 09:40 09:40 WBC RBC Hgb Hct MCV MCH MCHC RDW Plt Count MPV Gran % Lymph % (Auto) [place] % (Auto) Eos % (Auto) Baso % (Auto) Gran # Lymph # (Auto) [place] # (Auto) Eos # (Auto) Baso # (Auto) Sodium 134 Potassium 4.5 Chloride 96 Carbon Dioxide 17 L Anion Gap 21.0 H BUN 58 H Creatinine 1.9 H GFR Calculation 27 Glucose 137 H Calcium 9.7 Total Bilirubin 3.7 H AST 234 H ALT 175 H Alkaline Phosphatase 191 H Troponin T < 0.01 NT-Pro-B Natriuret Pep 3227.0 H Total Protein 6.1 Albumin 3.6 Globulin 2.5 Albumin/Globulin Ratio 1.4 Urine Color Pending Urine Appearance Pending Urine pH Pending Ur Specific Kimball Pending Urine Protein Pending Urine Glucose (UA) Pending Urine Ketones Pending Urine Occult Blood Pending Urine Nitrate Pending Urine Bilirubin Pending Urine Urobilinogen Pending Ur Leukocyte Esterase Pending 03/25/20 09:40 WBC 5.5 RBC 5.12 Hgb 13.6 Hct 42.9 MCV 83.8 MCH 26.6 MCHC 31.7 RDW 18.1 H Plt Count 121 L MPV 10.3 Gran % 65.5 Lymph % (Auto) 22.4 Carolina % (Auto) 10.3 Eos % (Auto) 1.1 Baso % (Auto) 0.7 Gran # 3.57 Lymph # (Auto) 1.22 L Carolina # (Auto) 0.56 Eos # (Auto) 0.06 Baso # (Auto) 0.04 Sodium Potassium Chloride Carbon Dioxide Anion Gap BUN Creatinine GFR Calculation Glucose Calcium Total Bilirubin AST ALT Alkaline Phosphatase Troponin T NT-Pro-B Natriuret Pep Total Protein Albumin Globulin Albumin/Globulin Ratio Urine Color Urine Appearance Urine pH Ur Specific Kimball Urine Protein Urine Glucose (UA) Urine Ketones Urine Occult Blood Urine Nitrate Urine Bilirubin Urine Urobilinogen Ur Leukocyte Esterase A/P Narrative A/P Narrative: A: *Acute on chronic systolic (40%) CHF with valvular component, mod-sev MR/TR: -was prescribed BB/ARB last admit but do not see on med list *DIEGO on CKD III: 2/2 above *Transaminitis(h/o same): 2/2 fatty liver and likely hepatic congestion from above *Fatty liver: *COPD(not on home O2): follows with dr yusuf -Patient was a longtime smoker but quit several months ago *DM type II: A1c 7.6 *HTN: *Chronic lymphedema: on home dose Lasix *Obesity: *Chronic generalized pain: *Generalized Weakness/deconditioning: P: -IV diuresis, monitor UOP and electrolytes -start BB, and ARB prior to d/c -liver u/s for transminitis and elevated bili -home IH's -basal and SSI - - -pt/ot -f/u with GI/Neprho/Pulm as scheduled -ppx: lovenox renally dosed full code Time Spent With Patient Time: Total time spent is greater than 50% in coordination of care (as documented) at patient's floor/unit and/or counseling patient:
[2020-03-25 16:43] LABS: Appearance,Urine CLEAR; Bacteria,Urine 0 /hpf (0); Bilirubin,Urine NEG (NEG); Color,Urine STRAW; Culture Indicated,Urine NO; Glucose,Urine (UA) NEGATIVE (NEG); Ketones,Urine NEG (NEG); Leukocyte Esterase,Urine NEG /uL (NEG); Nitrate,Urine NEG (NEG); Protein,Urine NEG (NEG); Specific Gravity,Urine 1.006 (1.000-1.035); Urine Blood 0.2 mg/dL (<0.03); Urine RBC 1 /hpf (0-1); Urine Squamous Epithelial Cell 0 /hpf (0-4); Urine WBC 1 /hpf (0-4); Urobilinogen,Urine NEG (NEG)
[2020-03-25] MEDS ORDERED: MAGNESIUM SULFATE 2 GM/50 ML BAG IV PRN (17:20)
[2020-03-25] MEDS ORDERED: DEXTROSE 50% 50 ML VIAL IV PRN (17:20)
[2020-03-25] MEDS ORDERED: DEXTROSE 31 GM ORAL.SUSP PO PRN (17:20)
[2020-03-25] MEDS ORDERED: ALBUTEROL SULFATE 200 PUFF INHALER INH PRN (17:20)
[2020-03-25] MEDS ORDERED: POLYETHYLENE GLYCOL 3350 17 GM PACKET PO PRN (17:20)
[2020-03-25] MEDS ORDERED: SENNOSIDES 1 TABLET PO PRN (17:20)
[2020-03-25] MEDS ORDERED: POTASSIUM CHLORIDE 40 MEQ in DEXTROSE 5% IN WATER 500 ML IV PRN (17:20)
[2020-03-25] MEDS ORDERED: METOCLOPRAMIDE 10 MG/2 ML VIAL IV PRN (17:20)
[2020-03-25] MEDS ORDERED: IPRATROPIUM/ALBUTEROL 3 ML AMPUL.NEB NEB PRN (17:20)
[2020-03-25] MEDS ORDERED: ONDANSETRON 4 MG/2 ML VIAL IV PRN (17:20)
[2020-03-25] MEDS ORDERED: POTASSIUM CHLORIDE 20 MEQ TABLET PO PRN ×2 (17:20)
[2020-03-25] MEDS ORDERED: LACTULOSE 20 GM/30 ML ORAL.SOL PO PRN (17:20)
[2020-03-25] MEDS: INSULIN LISPRO 1 UNIT/0.01 ML UNIT SQ SCH ×2 (18:34→20:34)
[2020-03-25] MEDS: ACETAMINOPHEN 325 MG TABLET PO PRN (18:43)
[2020-03-25] MEDS: METOPROLOL SUCCINATE 25 MG TAB.XL.24H PO SCH (18:46)
[2020-03-25 19:22] LABS: Thyroid Stimulating Hormone 14.49 uIU/ml (0.27-5.01)
[2020-03-25] MEDS ORDERED: LEVOTHYROXINE 50 MCG TABLET PO ONE (20:30)
[2020-03-25] MEDS: DOCUSATE SODIUM 100 MG CAPSULE PO SCH (20:34)
[2020-03-25] MEDS: FUROSEMIDE 40 MG/4 ML VIAL IV SCH (20:34)
[2020-03-25] MEDS ORDERED: POLYETHYLENE GLYCOL MISCELLANE SCH (21:00)
[2020-03-25] MEDS: 0.9 % SODIUM CHLORIDE 10 ML SYRINGE IV SCH (23:09)
[2020-03-26] MEDS: 0.9 % SODIUM CHLORIDE 10 ML SYRINGE IV SCH ×3 (05:54→20:09)
[2020-03-26 06:56] LABS: Basophils # (Auto) 0.03 K/mcL (0.00-0.30); Basophils % (Auto) 0.5 % (0.0-2.0); Eosinophils # (Auto) 0.14 K/mcL (0.00-0.70); Eosinophils % (Auto) 2.5 % (0.0-7.0); Granulocytes % (Auto) 61.5 % (38.0-78.0); Hematocrit 41.4 % (34.1-44.9); Hemoglobin 13.1 g/dL (11.2-15.7); Lymphocytes # (Auto) 1.44 K/mcL (1.50-4.80); Lymphocytes % (Auto) 25.7 % (15.5-49.0); Mean Cell Volume 83.8 fL (80.0-100.0); Mean Corpuscular HGB Conc 31.6 g/dL (31.0-36.0); Mean Platelet Volume 10.2 fL (7.4-10.4); Monocytes # (Auto) 0.55 K/mcL (0.10-0.90); Monocytes % (Auto) 9.8 % (1.0-12.0); Platelet Count 116 K/mcL (140-440); RBC 4.94 M/mcL (3.59-5.38); Red Cell Distribution Width 17.8 % (11.5-14.5); WBC 5.6 K/mcL (4.50-11.00)
--- NOTE | 2020-03-26 07:06 | Internal Med Progress Note ---
SUBJECTIVE Subjective Patient information: Note initiated : 03/26/20 at 7:03 am Service Date, if different from initiated Date: [] Patient: Cait Reyes a 64 y/o F admitted on 03/25/20 for Chest pain, bilat lower leg swellingq. Chief Complaint: [] Interval history: History of present illness: Ms. Reyes is a 64 year old F Presents to the ED with weakness and worsening edema. She is been hospitalized several times this year. She is supposed to follow-up with pulmonology gastroenterology nephrology but has not done that yet. Says she has been taking her medications regularly. She says her PCP adjusted her Lasix to try to get off some fluid. Could not really give me a good time from when she saw him although I see a note in the system from February 13. She had episode nausea vomiting last night. He has poor appetite. Last admission in January she was discharged on a beta-carmelo and arm but I do not see that on her medication. Also has chronic abdominal pain she is also post to see Dr. Crawford the surgeon, believe. 03/26 Good urine output overnight. Feeling little better. No new complaints. Renal function improved. Review of Systems: denies headache/fever/chills/nausea/vomiting/chest or abdominal pain/diarrhea. Otherwise see above. Constitutional Vitals: Vital Signs Temp Pulse Resp BP Pulse Ox 97.4 F 81 16 106/76 97 03/26/20 03:39 03/26/20 03:39 03/26/20 03:39 03/26/20 03:39 03/26/20 03:39 Period Temp Pulse Resp BP Sys/Garcia Pulse Ox Last 24 Hr 97.3 F-97.5 F 81-108 13-40 90-122/49-91 95-100 Intake and Output 03/25/20 03/26/20 03/26/20 21:59 05:59 13:59 Intake Total 545 Output Total 800 1525 Balance -800 -980 Weight 92.533 kg Intake & Output: Intake & Output 03/25/20 03/26/20 03/26/20 21:59 05:59 13:59 Intake Total 545 Output Total 800 1525 Balance -800 -980 Weight 92.533 kg Intake: Oral 545 Output: Urine Catheter Amount 800 1525 Other: Meal snack Percent of Meal Consumed 25% Urine Appearance Clear Uretheral (Covarrubias) Clear Urine Color Bright Yellow Uretheral (Covarrubias) Pale Stool Size Smear Stool Color Brown # Bowel Movements 1 Exam: General: Alert, Awake, No acute Distress, obese Eyes/N/T: EOMI, , Head/Neck: neck supple, JVD CV: RRR, No murmurs, Pulm: Mild fine rails more on the right, no wheezing abd: soft, nontender, +BS x4 Ext: no clubbing/cyanosis, 2-3+ b/l LE edema L>R Neuro: Alert, no focal deficits, moves all extremities, Skin: warm/dry OBJ DATA Labs CBC & Chem 7: 03/26/20 05:27 03/26/20 05:27 Labs: Abnormal Lab Results 03/26/20 03/25/20 03/25/20 05:27 18:17 14:45 RDW 17.8 H Plt Count 116 L Lymph # (Auto) 1.44 L Carbon Dioxide Anion Gap BUN Creatinine Glucose Total Bilirubin AST ALT Alkaline Phosphatase NT-Pro-B Natriuret Pep TSH 14.49 H Urine Occult Blood 0.2 A 03/25/20 03/25/20 09:40 09:40 RDW 18.1 H Plt Count 121 L Lymph # (Auto) 1.22 L Carbon Dioxide 17 L Anion Gap 21.0 H BUN 58 H Creatinine 1.9 H Glucose 137 H Total Bilirubin 3.7 H AST 234 H ALT 175 H Alkaline Phosphatase 191 H NT-Pro-B Natriuret Pep 3227.0 H TSH Urine Occult Blood Meds: Medications Acetaminophen (Tylenol) 650 mg PO Q6HP PRN PRN Reason: PAIN/FEVER > 101 Last Admin: 03/25/20 18:43 Dose: 650 mg Documented by: Albuterol Sulfate (Ventolin) 1 - 2 puff INH Q4-6HP PRN PRN Reason: Shortness Of Breath Albuterol/Ipratropium (Duoneb) 3 ml NEB Q4HP PRN PRN Reason: Shortness Of Breath Aspirin (Aspirin) 81 mg PO DAILY JAMIE Dextrose (Dextrose 50%) 0 ml IV UD PRN PRN Reason: Hypoglycemia Diagnostic Test (Pha) (Accu-Chek) 1 each FS ACHS JAMIE Last Admin: 03/25/20 20:34 Dose: 1 each Documented by: Docusate Sodium (Colace) 100 mg PO BID [facility] Last Admin: 03/25/20 20:34 Dose: 100 mg Documented by: Enoxaparin Sodium (Lovenox) 30 mg SQ DAILY [facility] Furosemide (Lasix) 40 mg IV Q12 [facility] Last Admin: 03/25/20 20:34 Dose: 40 mg Documented by: Glucose (Insta-Glucose) 15 gm PO PRN PRN PRN Reason: Hypoglycemia Potassium Chloride 40 meq/ (Dextrose) 520 mls @ 130 mls/hr IV UD PRN PRN Reason: Potassium < 3 Magnesium Sulfate (Magnesium Sulfate) 2 gm in 50 mls @ 50 mls/hr IV UD PRN PRN Reason: Magnesium </= 1.6 Insulin Glargine (Lantus) 15 unit SQ QDAY [facility] Insulin Human Lispro (Humalog) 0 unit SQ ACHS [facility]; Protocol Last Admin: 03/25/20 20:34 Dose: Not Given Documented by: Lactulose (Cephulac) 20 gm PO DAILYP PRN PRN Reason: Constipation Levothyroxine Sodium (Synthroid) 88 mcg PO QAMAC [facility] Metoclopramide HCl (Reglan) 10 mg IV Q6HP PRN PRN Reason: Nausea And Vomiting Metoprolol Succinate (Toprol Xl) 12.5 mg PO DAILY [facility] Last Admin: 03/25/20 18:46 Dose: 12.5 mg Documented by: Ondansetron HCl (Zofran) 4 mg IV Q4HP PRN PRN Reason: Nausea And Vomiting Polyethylene Glycol (Miralax) 17 gm PO DAILYP PRN PRN Reason: Constipation Potassium Chloride (Kdur) 40 meq PO UD PRN PRN Reason: Potssium is 3-3.5 Potassium Chloride (Kdur) 40 meq PO UD PRN PRN Reason: Potassium < 3 Senna (Senokot) 2 tab PO DAILYP PRN PRN Reason: Constipation Sodium Chloride (Saline Flush) 10 ml IV Q8 [facility] Last Admin: 03/26/20 05:54 Dose: 10 ml Documented by: A/P Narrative A/P Narrative: A: *Acute on chronic systolic (40%) CHF with valvular component, mod-sev MR/TR: -was prescribed BB/ARB last admit but do not see on med list -good UOP *DIEGO on CKD III: 2/2 above *Transaminitis(h/o same): 2/2 fatty liver and likely hepatic congestion from above -mildly improving *Fatty liver: *COPD(not on home O2): follows with dr yusuf -Patient was a longtime smoker but quit several months ago *DM type II: A1c 7.6 *HTN: *Chronic lymphedema: on home dose Lasix *Obesity: *Chronic generalized pain: *Generalized Weakness/deconditioning: *HYpothyroidism: tsh 14.5, check T4 P: -IV diuresis, monitor UOP and electrolytes -start BB, ARB prior to d/c and when renal fxn stable -liver u/s for transminitis and elevated bili -home IH's -basal and SSI -increase levothyroxine from 50-88mcg - -pt/ot -f/u with GI/Neprho/Pulm as scheduled -ppx: lovenox renally dosed full code Time Spent With Patient Time: Total time spent is greater than 50% in coordination of care (as documented) at patient's floor/unit and/or counseling patient: QUALITY VTE Deep Vein Thrombosis/Pulmonary Embolism Present on Admission: No
[2020-03-26] MEDS: INSULIN LISPRO 1 UNIT/0.01 ML UNIT SQ SCH ×4 (07:30→21:40)
[2020-03-26 07:33] LABS: ALT/SGPT 136 U/l (0-40); AST/SGOT 157 U/l (0-37); Albumin 3.1 gm/dL (3.2-5.2); Albumin/Globulin Ratio 1.4 (1.0-2.3); Alkaline Phosphatase 175 U/L (39-117); Bilirubin,Direct 2.2 mg/dL (0.0-0.3); Bilirubin,Total 3.6 mg/dL (0.0-1.0); Blood Urea Nitrogen 50 mg/dl (8-23); Calcium 8.5 mg/dl (8.6-10.4); Carbon Dioxide 21 mmol/L (22-30); Chloride 97 mmol/L (96-108); Globulin 2.2 gm/dL (2.2-3.7); Glomerular Filtration Rate 36; Glucose 84 mg/dL (70-105); Iron 33 mcg/dl (37-145); Lactate Dehydrogenase 421 U/L (94-250); TIBC Calculation 301 ug/dl (228-428); Transferrin % Saturation 10 % (15-50); Triglycerides 86 mg/dl (<150); Uric Acid 16.6 mg/dL (2.5-8.0)
[2020-03-26] MEDS ORDERED: POTASSIUM CHLORIDE 20 MEQ TABLET PO ONE (08:10)
[2020-03-26] MEDS: LEVOTHYROXINE 88 MCG TABLET PO SCH (08:29)
--- NOTE | 2020-03-26 08:42 | XRay Report ---
CLINICAL INFORMATION: : CHF COMPARISON: 03/25/2020 FINDINGS: Moderate cardiomegaly decrease in size. Mediastinum is unremarkable. Pulmonary vessels appear normal in caliber and edema has cleared. Tiny right pleural effusion persists IMPRESSION: Interval resolution in CHF Interpreted and Authenticated by: Adeel Rico 03/26/20
[2020-03-26 08:56] LABS: Ferritin 76.5 ng/ml (30-400)
[2020-03-26] MEDS: ASPIRIN 81 MG TAB.CHEW PO SCH (08:56)
[2020-03-26] MEDS: ENOXAPARIN 30 MG/0.3 ML SYRINGE SQ SCH (08:56)
[2020-03-26] MEDS: METOPROLOL SUCCINATE 25 MG TAB.XL.24H PO SCH (08:56)
[2020-03-26] MEDS: DOCUSATE SODIUM 100 MG CAPSULE PO SCH ×2 (08:56→21:40)
[2020-03-26] MEDS: FUROSEMIDE 40 MG/4 ML VIAL IV SCH (08:56)
[2020-03-26] MEDS: INSULIN GLARGINE, HUMAN 1 UNIT/0.01 ML SQ SCH (08:58)
[2020-03-26] MEDS ORDERED: LEVOTHYROXINE 50 MCG TABLET PO SCH (09:00)
[2020-03-26] MEDS ORDERED: ALBUMIN HUMAN 12.5 GM/50 ML BAG IV ONE (09:00)
--- NOTE | 2020-03-26 11:41 | Ultrasound Report ---
CLINICAL INFORMATION: elevated bilirubin and liver enzymes, biliary trac COMPARISON: None. FINDINGS: The gallbladder is surgically absent. Common bile duct is normal - 5 mm. The liver is markedly hyperechoic with fatty change or other diffuse hepatocellular process. No focal hepatic lesions. Pancreas is largely obscured by gas but shows no gross abnormality. No free fluid. IMPRESSION: Markedly hyperechoic liver compatible with fatty change or other diffuse hepatocellular process. Common bile duct is normal Interpreted and Authenticated by: Adeel Rico 03/26/20
[2020-03-26] MEDS: ACETAMINOPHEN 325 MG TABLET PO PRN (16:08)
--- NOTE | 2020-03-26 16:36 | Discharge Summary ---
Discharge Provider Provider Patient information: Note initiated : 03/26/20 at 4:33 pm Service Date, if different from initiated Date: [] Patient: Cait Reyes 64 y/o F admitted on 03/25/20 for Chest pain, bilat lower leg swellingq. Chief Complaint: [] Date of admission: 03/25/20 17:06 Discharge date: 03/27/20 Primary care physician: FRANCISCA Jesus Consults: 03/26/20 07:25 Consult to Physician [CONS] Routine Comment: Consulting Provider: Clay Jordan Reason For Exam: Physician to Consult Discharge Meds Discharge Medications Home Medications aspirin [Adult Low Dose Aspirin] 81 mg PO DAILY 04/25/16 [History Confirmed 03/25/20 Last Taken Unknown] insulin detemir U-100 100 unit/mL (3 mL) subcutaneous pen 15 unit SUB-Q QDAY ml 01/30/20 [History Confirmed 03/25/20 Last Taken Unknown] albuterol sulfate 90 mcg/actuation aerosol inhaler See Rx Instructions INHALATION .Q4-6H PRN g 03/21/20 [History Confirmed 03/25/20 Last Taken Unknown] polyethylene glycol See Rx Instructions MISCELLANE BID 03/21/20 [History Confirmed 03/25/20 Last Taken Unknown] potassium chloride 10 mEq capsule,extended release 10 meq PO BID 03/21/20 [History Confirmed 03/26/20 Last Taken Unknown] furosemide See Rx Instructions .ROUTE .COMPLEX 03/25/20 [History Confirmed 03/26/20 Last Taken Unknown] levothyroxine 88 mcg PO QAMAC #30 tab 03/26/20 [Rx Last Taken Unknown] metoprolol succinate 12.5 mg PO DAILY #30 tab 03/26/20 [Rx Last Taken Unknown] multivitamin with minerals 1 tab PO DAILY 03/26/20 [History Confirmed 03/26/20 Last Taken Unknown] ondansetron 4 - 8 mg PO BIDP PRN 03/26/20 [History Confirmed 03/26/20 Last Taken Unknown] COURSE Hospital Course Hospital course: History of present illness: Ms. Reyes is a 64 year old F Presents to the ED with weakness and worsening edema. She is been hospitalized several times this year. She is supposed to follow-up with pulmonology gastroenterology nephrology but has not done that yet. Says she has been taking her medications regularly. She says her PCP adjusted her Lasix to try to get off some fluid. Could not really give me a good time from when she saw him although I see a note in the system from February 13. She had episode nausea vomiting last night. He has poor appetite. Last admission in January she was discharged on a beta-carmelo and arm but I do not see that on her medication. Also has chronic abdominal pain she is also post to see Dr. Crawford the surgeon, believe. 03/26 Good urine output overnight. Feeling little better. No new complaints. Renal function improved. 03/27 Low blood pressure while sleeping but asymptomatic. Blood pressure better while awake. Will evaluate blood pressure medications. Swelling in legs much improved after the compression wraps. Patient wanting to go home. A: *Acute on chronic systolic (40%) CHF with valvular component, mod-sev MR/TR: -was prescribed BB/ARB last admit but do not see on med list -good UOP *DIEGO on CKD III: 2/2 above *Transaminitis(h/o same): 2/2 fatty liver and likely hepatic congestion from above -mildly improving *Fatty liver: *COPD(not on home O2): follows with dr yusuf -Patient was a longtime smoker but quit several months ago *DM type II: A1c 7.6 *HTN: *Chronic lymphedema: on home dose Lasix *Obesity: *Chronic generalized pain: *Generalized Weakness/deconditioning: *HYpothyroidism: tsh 14.5, check T4 Discharge diagnosis: Acute on chronic systolic heart failure with valvulopathy acute kidney inju Secondary discharge diagnosis: Transaminitis fatty liver COPD diabetes hypertension chronic lymphedema obesity generalized pain weakness deconditioning hypothyroidism Time Spent with Patient Time attestation: Total time spent providing and/or coordinating discharge services: Time spent: Greater than 30 minutes EXAM Constitutional Vitals: Temp Pulse Resp BP Pulse Ox 98.4 F 81 20 104/81 100 03/26/20 16:05 03/26/20 07:58 03/26/20 16:05 03/26/20 16:05 03/26/20 16:05 Discharge Data Data Completed and Pending Labs on day of discharge: Labs from last 24 hours 03/26/20 03/26/20 03/25/20 05:27 05:27 18:17 WBC 5.6 RBC 4.94 Hgb 13.1 Hct 41.4 MCV 83.8 MCH 26.5 MCHC 31.6 RDW 17.8 H Plt Count 116 L MPV 10.2 Gran % 61.5 Lymph % (Auto) 25.7 Clare % (Auto) 9.8 Eos % (Auto) 2.5 Baso % (Auto) 0.5 Gran # 3.44 Lymph # (Auto) 1.44 L Clare # (Auto) 0.55 Eos # (Auto) 0.14 Baso # (Auto) 0.03 Sodium 135 Potassium 3.2 L Chloride 97 Carbon Dioxide 21 L Anion Gap 17.0 H BUN 50 H Creatinine 1.5 H GFR Calculation 36 Glucose 84 Uric Acid 16.6 H Calcium 8.5 L Phosphorus 4.0 Magnesium 1.7 Iron 33 L TIBC 301 Unsat Iron Binding 268 Transferrin % Sat 10 L Ferritin 76.5 Total Bilirubin 3.6 H Direct Bilirubin 2.2 H GGT 67 H AST 157 H ALT 136 H Alkaline Phosphatase 175 H Lactate Dehydrogenase 421 H Total Protein 5.3 L Albumin 3.1 L Globulin 2.2 Albumin/Globulin Ratio 1.4 Triglycerides 86 TSH Free T4 1.31 Urine Color Urine Appearance Urine pH Ur Specific [place] Urine Protein Urine Glucose (UA) Urine Ketones Urine Occult Blood Urine Nitrate Urine Bilirubin Urine Urobilinogen Ur Leukocyte Esterase Urine RBC Urine WBC Ur Squamous Epith Cells Urine Bacteria Ur Culture Indicated? 03/25/20 03/25/20 18:17 14:45 WBC RBC Hgb Hct MCV MCH MCHC RDW Plt Count MPV Gran % Lymph % (Auto) Clare % (Auto) Eos % (Auto) Baso % (Auto) Gran # Lymph # (Auto) Clare # (Auto) Eos # (Auto) Baso # (Auto) Sodium Potassium Chloride Carbon Dioxide Anion Gap BUN Creatinine GFR Calculation Glucose Uric Acid Calcium Phosphorus Magnesium Iron TIBC Unsat Iron Binding Transferrin % Sat Ferritin Total Bilirubin Direct Bilirubin GGT AST ALT Alkaline Phosphatase Lactate Dehydrogenase Total Protein Albumin Globulin Albumin/Globulin Ratio Triglycerides TSH 14.49 H Free T4 Urine Color Straw Urine Appearance Clear Urine pH 5.0 Ur Specific [place] 1.006 Urine Protein Neg Urine Glucose (UA) Negative Urine Ketones Neg Urine Occult Blood 0.2 A Urine Nitrate Neg Urine Bilirubin Neg Urine Urobilinogen Neg Ur Leukocyte Esterase Neg Urine RBC 1 Urine WBC 1 Ur Squamous Epith Cells 0 Urine Bacteria 0 Ur Culture Indicated? No Discharge Plan Patient/Caregiver Discharge Instructions Activity: increase activity as tolerated Diet: Consistent Carbohydrate Activity Restrictions/Additional Instructions: Follow-up with PCP in 3 to 7 days. f/u with pulmonology/Cardiology/GI/Nephro as scheduled Prescriptions: New levothyroxine 88 mcg Tablet 88 mcg PO QAMAC Qty: 30 RF: 0 metoprolol succinate 25 mg Tablet Extended Release 24 Hr 12.5 mg PO DAILY Qty: 30 RF: 0 Continued Levemir FlexTouch U-100 Insuln 100 unit/mL (3 mL) insulin pen 15 unit SUB-Q QDAY RF: 0 albuterol sulfate [ProAir HFA] 90 mcg/actuation HFA aerosol inhaler See Rx Instructions INHALATION .Q4-6H PRN (Reason: Shortness Of Breath) RF: 0 polyethylene glycol Powder See Rx Instructions MISCELLANE BID RF: 0 potassium chloride 10 mEq capsule, extended release 10 meq PO BID RF: 0 aspirin [Adult Low Dose Aspirin] 81 MG tablet,delayed release (DR/EC) 81 mg PO DAILY RF: 0 furosemide 20 mg tablet See Rx Instructions .ROUTE .COMPLEX RF: 0 multivitamin with minerals Tablet 1 tab PO DAILY RF: 0 ondansetron 4 mg Tablet,Disintegrating 4 - 8 mg PO BIDP PRN (Reason: Nausea) RF: 0 Discontinued levothyroxine 50 mcg Tablet 50 mcg PO QDAY RF: 0 losartan 25 mg Tablet 25 mg PO DAILY RF: 0 Follow Up Plan Follow up with: Niko Ernst ARNP [Primary Care Provider] - Patient Disposition: Home Health Service Prognosis: Undetermined Overall status at discharge: patient is progressing back to baseline Discharge Orders: Discharge Order (Routine); Ordered 03/27/20 Ordered By: Clay Jordan [facility] VTE Deep Vein Thrombosis/Pulmonary Embolism Present on Admission: No
[2020-03-26] MEDS ORDERED: MELATONIN 3 MG TABLET PO SCH (21:00)
[2020-03-27] MEDS ORDERED: ALBUMIN HUMAN 12.5 GM/50 ML BAG IV ONE (00:59)
[2020-03-27] MEDS ORDERED: ALBUMIN HUMAN 50 ML IV ONE (01:16)
[2020-03-27] MEDS: 0.9 % SODIUM CHLORIDE 10 ML SYRINGE IV SCH (04:25)
--- NOTE | 2020-03-27 07:10 | Internal Med Progress Note ---
SUBJECTIVE Subjective Patient information: Note initiated : 03/27/20 at 7:07 am Service Date, if different from initiated Date: [] Patient: Cait Reyes a 64 y/o F admitted on 03/25/20 for Chest pain, bilat lower leg swellingq. Chief Complaint: [] Interval history: History of present illness: Ms. Reyes is a 64 year old F Presents to the ED with weakness and worsening edema. She is been hospitalized several times this year. She is supposed to follow-up with pulmonology gastroenterology nephrology but has not done that yet. Says she has been taking her medications regularly. She says her PCP adjusted her Lasix to try to get off some fluid. Could not really give me a good time from when she saw him although I see a note in the system from February 13. She had episode nausea vomiting last night. He has poor appetite. Last admission in January she was discharged on a beta-carmelo and arm but I do not see that on her medication. Also has chronic abdominal pain she is also post to see Dr. Crawford the surgeon, believe. 03/26 Good urine output overnight. Feeling little better. No new complaints. Renal function improved. 03/27 Blood pressure low while sleeping. Patient seem to be asymptomatic. Blood pressure this morning 110 systolic. Swelling in legs much improved after the compression wraps. Patient wanting to go home. Review of Systems: denies headache/fever/chills/nausea/vomiting/chest or abdominal pain/diarrhea. Otherwise see above. Constitutional Vitals: Vital Signs Temp Pulse Resp BP Pulse Ox 97.2 F 83 16 86/62 97 03/27/20 03:57 03/27/20 03:57 03/27/20 03:57 03/27/20 03:57 03/27/20 03:57 Period Temp Pulse Resp BP Sys/Garcia Pulse Ox Last 24 Hr 96.0 F-98.4 F 81-88 -20 84-104/59-81 96-100 Intake and Output 03/26/20 03/27/20 03/27/20 21:59 05:59 13:59 Intake Total 520 0 Output Total 275 0 Balance 245 0 Weight 93.213 kg Intake & Output: Intake & Output 03/26/20 03/27/20 03/27/20 21:59 05:59 13:59 Intake Total 520 0 Output Total 275 0 Balance 245 0 Weight 93.213 kg Intake: Oral 520 0 Output: Urine Catheter Amount 275 Void Amount 0 Other: Meal Dinner Percent of Meal Consumed 50% Feeding Ability Independent Urine Appearance Clear Urine Color Bright Yellow Urine Odor Normal Stool Size Small Stool Color Brown Stool Consistency Formed # Bowel Movements 1 # of times incontinent of 0 Bowels Exam: General: Alert, Awake, No acute Distress, obese Eyes/N/T: EOMI, , Head/Neck: neck supple, CV: RRR, No murmurs, Pulm: Mild fine rails more on the right, no wheezing abd: soft, nontender, +BS x4 Ext: no clubbing/cyanosis, 2+ b/l LE edema L>R overall much improved Neuro: Alert, no focal deficits, moves all extremities, Skin: warm/dry OBJ DATA Labs CBC & Chem 7: 03/26/20 05:27 03/26/20 05:27 Labs: Abnormal Lab Results 03/26/20 03/26/20 03/25/20 05:27 05:27 18:17 RDW 17.8 H Plt Count 116 L Lymph # (Auto) 1.44 L Potassium 3.2 L Carbon Dioxide 21 L Anion Gap 17.0 H BUN 50 H Creatinine 1.5 H Glucose Uric Acid 16.6 H Calcium 8.5 L Iron 33 L Transferrin % Sat 10 L Total Bilirubin 3.6 H Direct Bilirubin 2.2 H GGT 67 H AST 157 H ALT 136 H Alkaline Phosphatase 175 H Lactate Dehydrogenase 421 H NT-Pro-B Natriuret Pep Total Protein 5.3 L Albumin 3.1 L TSH 14.49 H Urine Occult Blood 03/25/20 03/25/20 03/25/20 14:45 09:40 09:40 RDW 18.1 H Plt Count 121 L Lymph # (Auto) 1.22 L Potassium Carbon Dioxide 17 L Anion Gap 21.0 H BUN 58 H Creatinine 1.9 H Glucose 137 H Uric Acid Calcium Iron Transferrin % Sat Total Bilirubin 3.7 H Direct Bilirubin GGT AST 234 H ALT 175 H Alkaline Phosphatase 191 H Lactate Dehydrogenase NT-Pro-B Natriuret Pep 3227.0 H Total Protein Albumin TSH Urine Occult Blood 0.2 A Meds: Medications Acetaminophen (Tylenol) 650 mg PO Q6HP PRN PRN Reason: PAIN/FEVER > 101 Last Admin: 03/26/20 16:08 Dose: 325 mg Documented by: Albuterol Sulfate (Ventolin) 1 - 2 puff INH Q4-6HP PRN PRN Reason: Shortness Of Breath Albuterol/Ipratropium (Duoneb) 3 ml NEB Q4HP PRN PRN Reason: Shortness Of Breath Last Admin: 03/26/20 20:18 Dose: 3 ml Documented by: Aspirin (Aspirin) 81 mg PO DAILY [facility] Last Admin: 03/26/20 08:56 Dose: 81 mg Documented by: Dextrose (Dextrose 50%) 0 ml IV UD PRN PRN Reason: Hypoglycemia Diagnostic Test (Pha) (Accu-Chek) 1 each FS [facility] Last Admin: 03/26/20 21:39 Dose: 1 each Documented by: Docusate Sodium (Colace) 100 mg PO BID [facility] Last Admin: 03/26/20 21:40 Dose: 100 mg Documented by: Enoxaparin Sodium (Lovenox) 30 mg SQ DAILY [facility] Last Admin: 03/26/20 08:56 Dose: 30 mg Documented by: Glucose (Insta-Glucose) 15 gm PO PRN PRN PRN Reason: Hypoglycemia Potassium Chloride 40 meq/ (Dextrose) 520 mls @ 130 mls/hr IV UD PRN PRN Reason: Potassium < 3 Magnesium Sulfate (Magnesium Sulfate) 2 gm in 50 mls @ 50 mls/hr IV UD PRN PRN Reason: Magnesium </= 1.6 Insulin Glargine (Lantus) 15 unit SQ QDAY [facility] Last Admin: 03/26/20 08:58 Dose: 15 units Documented by: Insulin Human Lispro (Humalog) 0 unit SQ [facility]; Protocol Last Admin: 03/26/20 21:40 Dose: Not Given Documented by: Lactulose (Cephulac) 20 gm PO DAILYP PRN PRN Reason: Constipation Levothyroxine Sodium (Synthroid) 88 mcg PO QAMAC [facility] Last Admin: 03/26/20 08:29 Dose: 88 mcg Documented by: Melatonin (Melatonin 3mg Tablet) 3 mg PO QHS [facility] Last Admin: 03/26/20 21:39 Dose: 3 mg Documented by: Metoclopramide HCl (Reglan) 10 mg IV Q6HP PRN PRN Reason: Nausea And Vomiting Metoprolol Succinate (Toprol Xl) 12.5 mg PO DAILY [facility] Last Admin: 03/26/20 08:56 Dose: 12.5 mg Documented by: Ondansetron HCl (Zofran) 4 mg IV Q4HP PRN PRN Reason: Nausea And Vomiting Last Admin: 03/26/20 20:09 Dose: 4 mg Documented by: Polyethylene Glycol (Miralax) 17 gm PO DAILYP PRN PRN Reason: Constipation Potassium Chloride (Kdur) 40 meq PO UD PRN PRN Reason: Potssium is 3-3.5 Potassium Chloride (Kdur) 40 meq PO UD PRN PRN Reason: Potassium < 3 Senna (Senokot) 2 tab PO DAILYP PRN PRN Reason: Constipation Sodium Chloride (Saline Flush) 10 ml IV Q8 [facility] Last Admin: 03/27/20 04:25 Dose: 10 ml Documented by: A/P Narrative A/P Narrative: A: *Acute on chronic systolic (40%) CHF with valvular component, mod-sev MR/TR: -was prescribed BB/ARB last admit but do not see on med list -good UOP - *DIEGO on CKD III: 2/2 above, improved *Transaminitis(h/o same): 2/2 fatty liver and likely hepatic congestion from above -mildly improving -no biliary dilation *Fatty liver: *COPD(not on home O2): follows with dr yusuf -Patient was a longtime smoker but quit several months ago *DM type II: A1c 7.6 *HTN: *Chronic lymphedema: on home dose Lasix *Obesity: *Chronic generalized pain: *Generalized Weakness/deconditioning: *HYpothyroidism: tsh 14.5 P: -s/p , monitor UOP and electrolytes -hold BB/ARB for low BP -home IH's -basal and SSI -increased levothyroxine from 50-88mcg - -pt/ot -f/u with GI/Neprho/Pulm as scheduled -possible d/c today -ppx: lovenox renally dosed full code Time Spent With Patient Time: Total time spent is greater than 50% in coordination of care (as documented) at patient's floor/unit and/or counseling patient: [facility] VTE Deep Vein Thrombosis/Pulmonary Embolism Present on Admission: No
[2020-03-27] MEDS: INSULIN LISPRO 1 UNIT/0.01 ML UNIT SQ SCH (07:48)
[2020-03-27] MEDS: DOCUSATE SODIUM 100 MG CAPSULE PO SCH (09:17)
[2020-03-27] MEDS: ASPIRIN 81 MG TAB.CHEW PO SCH (09:17)
[2020-03-27] MEDS: ENOXAPARIN 30 MG/0.3 ML SYRINGE SQ SCH (09:17)
[2020-03-27] MEDS: INSULIN GLARGINE, HUMAN 1 UNIT/0.01 ML SQ SCH (09:17)
[2020-03-27] MEDS: LEVOTHYROXINE 88 MCG TABLET PO SCH (09:17)
[2020-03-27] MEDS ORDERED: FLU VACC QS2020-21(6MOS UP)/PF 60 MCG/0.5 ML SYRINGE IM ONE (10:00)
== END 2020-03-27 10:40 | disposition home health service (06) | DRG 291 ==
LOC: ED 09:23 → MEDSUR 17:06
PROVIDERS: ADMIT Internal Medicine; ATTEND Internal Medicine

== ENCOUNTER 2020-04-04 11:58 | Inpatient (IN) ==
[2020-04-04] MEDS ORDERED: IPRATROPIUM/ALBUTEROL 3 ML AMPUL.NEB NEB ONE (12:17)
[2020-04-04] MEDS ORDERED: FUROSEMIDE 40 MG/4 ML VIAL IV ONE (12:17)
--- NOTE | 2020-04-04 12:26 | Emergency Department Note ---
Extremity Problem HPI General Chief complaint: Extremity Problem,Nontraumatic Stated complaint: left leg swelling Time Seen by Provider: 04/04/20 12:05 Source: patient Mode of arrival: ambulatory Limitations: no limitations History of Present Illness HPI Narrative: Narrative: 85-year-old female comes in for shortness of breath and weakness for the last day or so. She is got redness up the inside of her calf and thigh on the left along with increased swelling on the left lower leg which brought her in. She notes that she felt chilled and threw up one time last night. She is on furosemide for known CHF. She does live alone and denies other sick exposures Related Data Home Medications Medication Instructions Recorded Confirmed aspirin [Adult Low Dose Aspirin] 81 mg PO DAILY 04/25/16 03/25/20 insulin detemir U-100 100 unit/mL 15 unit SUB-Q QDAY ml 01/30/20 03/25/20 (3 mL) subcutaneous pen albuterol sulfate 90 mcg/actuation See Rx Instructions INHALATION 03/21/20 03/25/20 aerosol inhaler .Q4-6H PRN g polyethylene glycol See Rx Instructions MISCELLANE BID 03/21/20 03/25/20 potassium chloride 10 mEq 10 meq PO BID 03/21/20 03/26/20 capsule,extended release furosemide See Rx Instructions .ROUTE .COMPLEX 03/25/20 03/26/20 multivitamin with minerals 1 tab PO DAILY 03/26/20 03/26/20 ondansetron 4 - 8 mg PO BIDP PRN 03/26/20 03/26/20 Previous Rx's Medication Instructions Recorded levothyroxine 88 mcg PO QAMAC #30 tab 03/26/20 metoprolol succinate 12.5 mg PO DAILY #30 tab 03/26/20 Allergies Allergy/AdvReac Type Severity Reaction Status Date / Time hydromorphone [From Dilaudid] AdvReac Mild Vomiting Verified 03/25/20 09:32 Steroids Allergy Mild Rash Uncoded 03/09/20 20:13 Review of Systems ROS ROS Narrative: Narrative: All systems ED: reviewed and negative except as stated. [facility] Narrative Patient History Narrative: Narrative: Medical/Surgical/Family History All Active Problems (Updated 04/04/20 @ 15:07 by Calos Osuna MD) Congestive heart failure (Acute) Bilateral edema of lower extremity (Acute) Cellulitis (Acute) Acute kidney injury (Acute) Sepsis (Acute) No pertinent past surgical history (Chronic) Acute renal failure syndrome (Chronic) Elevated LFTs (Acute) Cerumen impaction (Acute) Abdominal pain (Acute) Edema of abdominal wall (Acute) Right hand pain (Chronic) Scabies (Chronic) Lower respiratory infection (Chronic) URI (upper respiratory infection) (Chronic) Sprain of right ankle (Chronic) Mitral valve regurgitation (Chronic) Pharyngitis (Chronic) Bronchitis (Chronic) Plantar fasciitis of right foot (Chronic) Periostitis of ankle (Chronic) Bilateral foot pain (Chronic) Lateral epicondylitis of left elbow (Chronic) Pain in elbow (Chronic) Olecranon bursitis, right elbow (Chronic) Plantar fasciitis, left (Chronic) Candidiasis of skin (Chronic) Lichen planus (Chronic) Angular cheilitis (Chronic) Regular astigmatism (Chronic) Myopia (Chronic) Right foot pain (Chronic) Cirrhosis of liver (Chronic) Knee pain (Chronic) Heart failure (Chronic) Vitamin D deficiency (Chronic) Proteinuria (Chronic) Hemorrhoids without complication (Chronic) Hypertriglyceridemia (Chronic) Essential hypertension (Chronic) Depression (Chronic) Alcoholism (Chronic) Obese (Chronic) Chronic nasal congestion (Chronic) Cough (Chronic) Diabetes mellitus (Chronic) COPD (chronic obstructive pulmonary disease) (Chronic) Lung nodule seen on imaging study (Chronic) Chest pain (Chronic) Congestive heart failure (Chronic) Abdominal pain (Chronic) Acute bronchitis (Chronic) Diverticulitis (Chronic) Atypical chest pain (Chronic) Gastritis (Chronic) Urinary tract infection (Chronic) Constipation (Chronic) Viral syndrome (Chronic) Medical History Abdominal pain (Chronic) Acute bronchitis (Chronic) Acute renal failure syndrome (Chronic) Alcoholism (Chronic) Angular cheilitis (Chronic) Atypical chest pain (Chronic) Bilateral foot pain (Chronic) Bronchitis (Chronic) Candidiasis of skin (Chronic) Chest pain (Chronic) Chronic nasal congestion (Chronic) Cirrhosis of liver (Chronic) Congestive heart failure (Chronic) Constipation (Chronic) Cough (Chronic) Depression (Chronic) Diverticulitis (Chronic) Essential hypertension (Chronic) Gastritis (Chronic) Heart failure (Chronic) Hemorrhoids without complication (Chronic) Hypertriglyceridemia (Chronic) Knee pain (Chronic) Lateral epicondylitis of left elbow (Chronic) Lichen planus (Chronic) of lips Lower respiratory infection (Chronic) Mitral valve regurgitation (Chronic) Myopia (Chronic) Obese (Chronic) Olecranon bursitis, right elbow (Chronic) Pain in elbow (Chronic) Periostitis of ankle (Chronic) Pharyngitis (Chronic) Plantar fasciitis of right foot (Chronic) Plantar fasciitis, left (Chronic) Proteinuria (Chronic) Regular astigmatism (Chronic) Right foot pain (Chronic) Right hand pain (Chronic) Scabies (Chronic) Sprain of right ankle (Chronic) Type 2 diabetes mellitus (Acute) URI (upper respiratory infection) (Chronic) Urinary tract infection (Chronic) Viral syndrome (Chronic) Vitamin D deficiency (Chronic) Surgical History No pertinent past surgical history (Chronic) Family History Other No pertinent family history Social History Smoking Status: Former smoker Alcohol Intake Frequency: former alcohol drinker Substance Use: does not use Exam Narrative Narrative: Narrative: Overweight female frustrated with her health situation. Normocephalic atraumatic. Conjunctive are clear sclerae white nonicteric. No nasal discharge or congestion. Oropharynx pink and moist. Neck is supple without lymphadenopathy thyromegaly or carotid bruit. Heart is regular rate and rhythm no murmur appreciated. Lungs are basically clear to auscultation bilaterally-however she does have a significant end expiratory wheeze-oxygen levels remain normal. Abdomen is soft nontender nondistended. Left lower leg is moderately edematous as is her right-however on the left she has redness over the calf area extending into the medial thigh consistent with PE versus cellulitis. She is able to move her feet but appears globally weak. Pressure is low at 82/50 General Limitations: no limitations Course Vital Signs Vital signs: Vital Signs Temperature 98.2 F 04/04/20 11:59 Pulse Rate 90 04/04/20 11:59 Respiratory Rate 18 04/04/20 11:59 Blood Pressure 136/123 04/04/20 11:59 Pulse Oximetry (%) 99 04/04/20 11:59 Temperature 98.2 F 04/04/20 11:59 Pulse Rate 87 04/04/20 14:17 Respiratory Rate 14 09/17/20 14:17 Blood Pressure 104/72 04/04/20 14:17 Pulse Oximetry (%) 95 04/04/20 14:17 MDM MDM Narrative Medical decision making narrative: Narrative: CHF decompensation versus DVT/PE versus infectious disease. We will go ahead and start work-up with laboratory chest x-ray and ultrasound of the left lower extremity. Start treatment with furosemide and a breathing treatment. At this time she is afebrile does not have a history of COVID exposure. We will start her on antibiotics with Rocephin for cellulitis with possible sepsis Labs show acute kidney injury with elevated creatinine at 2.1 but her chest x- ray does not show evidence of fluid overload. No evidence of DVT on ultrasound. Suspect that she is actually hypovolemic. We will start her on some normal saline. Pro calcitonin is elevated as is lactic acid which is consistent with sepsis from a cellulitis of the left lower leg. I discussed the situation with the patient and she agrees to come in the hospital. I then discussed the case with Dr. Fernández, our hospitalist who agreed except the patient for further care and evaluation in the hospital. Her blood pressure initially went down but then came back up so she did not require pressors or getting antibiotics and some fluid Lab Data Lab results reviewed: Yes I reviewed the patient's lab results. Result diagrams: 04/04/20 12:20 04/04/20 12:19 Labs: Lab Results 04/04/20 04/04/20 04/04/20 Range/Units 12:19 12:19 12:19 WBC (4.50-11.00) K/mcL RBC (3.59-5.38) M/mcL Hgb (11.2-15.7) g/dL Hct (34.1-44.9) % MCV (80.0-100.0) fL MCH (26.0-34.0) pg MCHC (31.0-36.0) g/dL RDW (11.5-14.5) % Plt Count (140-440) K/mcL MPV (7.4-10.4) fL Total Counted Seg Neutrophils % (38-78) % Band Neutrophils % (0-10) % Lymphocytes % (15-49) % Monocytes % (Manual) (1-12) % Platelet Estimate (NORMAL) RBC Morphology (NORMAL) Anisocytosis (NONE SEEN) VBG Lactic Acid 3.6 H (0.5-2.0) mmol/L Sodium 134 (133-145) mmol/L Potassium 3.9 (3.3-5.1) mmol/L Chloride 95 L (96-108) mmol/L Carbon Dioxide 19 L (22-30) mmol/L Anion Gap 20.0 H (8-16) BUN 60 H (8-23) mg/dl Creatinine 2.1 H (0.6-1.1) mg/dl GFR Calculation 24 Glucose 113 H (70-105) mg/dL Calcium 8.6 (8.6-10.4) mg/dl Magnesium 1.7 (1.6-2.5) mg/dL Total Bilirubin 4.4 H (0.0-1.0) mg/dL AST 56 H (0-37) U/l ALT 62 H (0-40) U/l Alkaline Phosphatase 190 H (39-117) U/L Troponin T (0-0.03) ng/ml NT-Pro-B Natriuret Pep 83888.0 H (0-125) pg/ml Total Protein 5.2 L (5.9-8.4) gm/dL Albumin 3.5 (3.2-5.2) gm/dL Globulin 1.7 L (2.2-3.7) gm/dL Albumin/Globulin Ratio 2.1 (1.0-2.3) Lipase 10 (7-60) U/L Procalcitonin (<0.10) ng/mL 04/04/20 04/04/20 04/04/20 Range/Units 12:19 12:19 12:20 WBC 8.9 (4.50-11.00) K/mcL RBC 5.12 (3.59-5.38) M/mcL Hgb 13.3 (11.2-15.7) g/dL Hct 41.1 (34.1-44.9) % MCV 80.3 (80.0-100.0) fL MCH 26.0 (26.0-34.0) pg MCHC 32.4 (31.0-36.0) g/dL RDW 18.8 H (11.5-14.5) % Plt Count 79 L (140-440) K/mcL MPV 11.1 H (7.4-10.4) fL Total Counted 100 Seg Neutrophils % 75 (38-78) % Band Neutrophils % 9 (0-10) % Lymphocytes % 8 L (15-49) % Monocytes % (Manual) 8 (1-12) % Platelet Estimate Decreased (NORMAL) RBC Morphology Abnormal (NORMAL) Anisocytosis 1+ A (NONE SEEN) VBG Lactic Acid (0.5-2.0) mmol/L Sodium (133-145) mmol/L Potassium (3.3-5.1) mmol/L Chloride (96-108) mmol/L Carbon Dioxide (22-30) mmol/L Anion Gap (8-16) BUN (8-23) mg/dl Creatinine (0.6-1.1) mg/dl GFR Calculation Glucose (70-105) mg/dL Calcium (8.6-10.4) mg/dl Magnesium (1.6-2.5) mg/dL Total Bilirubin (0.0-1.0) mg/dL AST (0-37) U/l ALT (0-40) U/l Alkaline Phosphatase (39-117) U/L Troponin T 0.02 (0-0.03) ng/ml NT-Pro-B Natriuret Pep (0-125) pg/ml Total Protein (5.9-8.4) gm/dL Albumin (3.2-5.2) gm/dL Globulin (2.2-3.7) gm/dL Albumin/Globulin Ratio (1.0-2.3) Lipase (7-60) U/L Procalcitonin 4.33 (<0.10) ng/mL Radiology Data Radiology results reviewed: Yes I reviewed the patient's radiology results. Radiology results narrative: Ultrasound of the left lower extremity shows no evidence of DVT Chest x-ray shows no evidence of CHF-negative EKG Data EKG #1: EKG attestation: Yes I reviewed and interpreted this EKG. EKG results narrative: EKG shows a rate of 90 sinus rhythm with a right bundle branch block lateral leads with depressed ST. no significant change when compared with 03/25/2020 CC TIME Critical Care Time Critical Care Time: No Discharge Plan Patient/Caregiver Discharge Instructions Pt seen by MANAGER RESPIRATORY/PA only: No Clinical Impression: Cellulitis, Acute kidney injury, Sepsis Patient Disposition: Xfer As Inpt ([facility]) Condition: Critical Follow up with: Niko Ernst ARNP [Primary Care Provider] - Prescriptions: No Action Levemir FlexTouch U-100 Insuln 100 unit/mL (3 mL) insulin pen 15 unit SUB-Q QDAY RF: 0 albuterol sulfate [ProAir HFA] 90 mcg/actuation HFA aerosol inhaler See Rx Instructions INHALATION .Q4-6H PRN (Reason: Shortness Of Breath) RF: 0 polyethylene glycol Powder See Rx Instructions MISCELLANE BID RF: 0 potassium chloride 10 mEq capsule, extended release 10 meq PO BID RF: 0 aspirin [Adult Low Dose Aspirin] 81 MG tablet,delayed release (DR/EC) 81 mg PO DAILY RF: 0 furosemide 20 mg tablet See Rx Instructions .ROUTE .COMPLEX RF: 0 multivitamin with minerals Tablet 1 tab PO DAILY RF: 0 ondansetron 4 mg Tablet,Disintegrating 4 - 8 mg PO BIDP PRN (Reason: Nausea) RF: 0 levothyroxine 88 mcg Tablet 88 mcg PO QAMAC Qty: 30 RF: 0 metoprolol succinate 25 mg Tablet Extended Release 24 Hr 12.5 mg PO DAILY Qty: 30 RF: 0
[2020-04-04] MEDS ORDERED: cefTRIAXone 1 GM in DEXTROSE 5% IN WATER 50 ML IV SCH (12:30)
--- NOTE | 2020-04-04 12:39 | XRay Report ---
HISTORY: Peripheral edema shortness of breath FINDINGS: The heart is moderately enlarged. This is a chronic finding. There is no congestive heart failure, pulmonary infiltrate or pleural effusion. Comparison with the prior exam done on 03/26/20 shows no change. IMPRESSION: Stable cardiomegaly and no congestive heart failure Interpreted and Authenticated by: Oniel Logan 04/04/20
[2020-04-04 13:18] LABS: Hematocrit 41.1 % (34.1-44.9); Hemoglobin 13.3 g/dL (11.2-15.7); Mean Cell Volume 80.3 fL (80.0-100.0); Mean Corpuscular HGB Conc 32.4 g/dL (31.0-36.0); Mean Platelet Volume 11.1 fL (7.4-10.4); Platelet Count 79 K/mcL (140-440); RBC 5.12 M/mcL (3.59-5.38); Red Cell Distribution Width 18.8 % (11.5-14.5); WBC 8.9 K/mcL (4.50-11.00)
[2020-04-04 13:34] LABS: ALT/SGPT 62 U/l (0-40); AST/SGOT 56 U/l (0-37); Albumin 3.5 gm/dL (3.2-5.2); Albumin/Globulin Ratio 2.1 (1.0-2.3); Alkaline Phosphatase 190 U/L (39-117); Bilirubin,Total 4.4 mg/dL (0.0-1.0); Blood Urea Nitrogen 60 mg/dl (8-23); Calcium 8.6 mg/dl (8.6-10.4); Carbon Dioxide 19 mmol/L (22-30); Chloride 95 mmol/L (96-108); Globulin 1.7 gm/dL (2.2-3.7); Glomerular Filtration Rate 24; Glucose 113 mg/dL (70-105)
[2020-04-04] MEDS ORDERED: cefTRIAXone 1 GM VIAL ONE (13:45)
[2020-04-04 13:55] LABS: Anisocytosis 1+ (NONE SEEN); Band Neutrophils % 9 % (0-10); Lymphocytes % 8 % (15-49); Monocytes % (Manual) 8 % (1-12); Platelet Estimate DECREASED (NORMAL); RBC Morphology ABNORMAL (NORMAL); Segmented Neutrophils % 75 % (38-78)
--- NOTE | 2020-04-04 14:24 | Ultrasound Report ---
History: Swollen painful red left leg Findings: There is normal augmentation and compressibility of the deep veins and saphenous vein from the groin through the popliteal vein. The calf vessels are more difficult to visualize due to the patient's large size of the calf and subcutaneous edema. The visualized portions of the peroneal and posterior tibial veins have blood flow. No abnormal fluid collection is seen. IMPRESSION: No evidence of deep venous thrombosis. However, not all of the calf veins could be identified. Interpreted and Authenticated by: Oniel Logan 04/04/20
[2020-04-04] MEDS ORDERED: 0.9 % SODIUM CHLORIDE 1,000 ML IV SCH (14:45)
[2020-04-04] MEDS ORDERED: HYDROcodone/APAP (PP) 5/325MG TABLET (#4) PO ONE (14:58)
[2020-04-04] MEDS ORDERED: HYDROcodone/APAP 5/325MG TABLET PO ONE (15:03)
--- NOTE | 2020-04-04 15:11 | Internal Med History&Physical ---
HPI History of Present Illness Patient information: Note initiated : 04/04/20 at 3:11 pm Service Date, if different from initiated Date: [] Patient: Cait eRyes a 65 y/o F admitted on for left leg swelling. Chief Complaint: left leg swelling, chills and pain History of present illness: Ms. Reyes is a 65 year old F with a history of NYHA class III systolic heart failure EF 40%/CT/MR/COPD/history of cardiac cirrhosis/CKD stage III/DM type II and chronic lymphedema presents to the ER with rapid onset of left leg swelling, pain, redness extending up to middle of the thigh overnight. Patient went to her son and return to her apartment last night and was in her baseline state of health, she woke up this morning with severe pain swelling redness chills and subjective fever. She has chronic lymphedema from underlying CHF and takes diuretics. She also has allergic dermatitis for which she is frequently scratches her lower extremities and has been doing so over the last couple of days. She denies history of MRSA or recurrent cellulitis. She denies recent trauma. Initial work-up in the ER was consistent with severe sepsis with hypotension/endorgan dysfunction including acute kidney injury with a creatinine of 2.1, blood pressure 60s. Patient was started on antibiotic coverage after cultures were drawn. Elevated lactic acid. Subsequently hospitalist service was consulted for admission At the time of my evaluation patient is alert and oriented. She is moderate distress from left lower extremity redness swelling and pain. She was able to endorse history as above. She denies cough, chest palpitation headache but endorses to weakness, myalgia, chills but no diaphoresis. Review of systems 10 point review system was performed and is negative except for ones discussed above PFSH PFSH All Active Problems (Updated 04/04/20 @ 15:07 by Calos Osuna MD) Congestive heart failure (Acute) Bilateral edema of lower extremity (Acute) Cellulitis (Acute) Acute kidney injury (Acute) Sepsis (Acute) No pertinent past surgical history (Chronic) Acute renal failure syndrome (Chronic) Elevated LFTs (Acute) Cerumen impaction (Acute) Abdominal pain (Acute) Edema of abdominal wall (Acute) Right hand pain (Chronic) Scabies (Chronic) Lower respiratory infection (Chronic) URI (upper respiratory infection) (Chronic) Sprain of right ankle (Chronic) Mitral valve regurgitation (Chronic) Pharyngitis (Chronic) Bronchitis (Chronic) Plantar fasciitis of right foot (Chronic) Periostitis of ankle (Chronic) Bilateral foot pain (Chronic) Lateral epicondylitis of left elbow (Chronic) Pain in elbow (Chronic) Olecranon bursitis, right elbow (Chronic) Plantar fasciitis, left (Chronic) Candidiasis of skin (Chronic) Lichen planus (Chronic) Angular cheilitis (Chronic) Regular astigmatism (Chronic) Myopia (Chronic) Right foot pain (Chronic) Cirrhosis of liver (Chronic) Knee pain (Chronic) Heart failure (Chronic) Vitamin D deficiency (Chronic) Proteinuria (Chronic) Hemorrhoids without complication (Chronic) Hypertriglyceridemia (Chronic) Essential hypertension (Chronic) Depression (Chronic) Alcoholism (Chronic) Obese (Chronic) Chronic nasal congestion (Chronic) Cough (Chronic) Diabetes mellitus (Chronic) COPD (chronic obstructive pulmonary disease) (Chronic) Lung nodule seen on imaging study (Chronic) Chest pain (Chronic) Congestive heart failure (Chronic) Abdominal pain (Chronic) Acute bronchitis (Chronic) Diverticulitis (Chronic) Atypical chest pain (Chronic) Gastritis (Chronic) Urinary tract infection (Chronic) Constipation (Chronic) Viral syndrome (Chronic) Medical History Abdominal pain (Chronic) Acute bronchitis (Chronic) Acute renal failure syndrome (Chronic) Alcoholism (Chronic) Angular cheilitis (Chronic) Atypical chest pain (Chronic) Bilateral foot pain (Chronic) Bronchitis (Chronic) Candidiasis of skin (Chronic) Chest pain (Chronic) Chronic nasal congestion (Chronic) Cirrhosis of liver (Chronic) Congestive heart failure (Chronic) Constipation (Chronic) Cough (Chronic) Depression (Chronic) Diverticulitis (Chronic) Essential hypertension (Chronic) Gastritis (Chronic) Heart failure (Chronic) Hemorrhoids without complication (Chronic) Hypertriglyceridemia (Chronic) Knee pain (Chronic) Lateral epicondylitis of left elbow (Chronic) Lichen planus (Chronic) of lips Lower respiratory infection (Chronic) Mitral valve regurgitation (Chronic) Myopia (Chronic) Obese (Chronic) Olecranon bursitis, right elbow (Chronic) Pain in elbow (Chronic) Periostitis of ankle (Chronic) Pharyngitis (Chronic) Plantar fasciitis of right foot (Chronic) Plantar fasciitis, left (Chronic) Proteinuria (Chronic) Regular astigmatism (Chronic) Right foot pain (Chronic) Right hand pain (Chronic) Scabies (Chronic) Sprain of right ankle (Chronic) Type 2 diabetes mellitus (Acute) URI (upper respiratory infection) (Chronic) Urinary tract infection (Chronic) Viral syndrome (Chronic) Vitamin D deficiency (Chronic) Surgical History No pertinent past surgical history (Chronic) Family History Other No pertinent family history Social History (Updated 03/25/20 @ 16:13 by Clay Jordan DO) household members: alone marital status: single occupational status: retired smoking status: Former smoker alcohol intake frequency: former alcohol drinker substance use type: does not use additional history: Past surgical history: Tonsillectomy appendectomy cholecystectomy Family history Unknown mother history father had heart failure Social history: Patient quit smoking several months ago and stopped drinking alcohol several months ago. Uses a cane and lives by herself MEDS/ALLERGIES Home Medications and Allergies Home Medications Medication Instructions Recorded Confirmed Type aspirin [Adult Low Dose Aspirin] 81 mg PO DAILY 04/25/16 04/04/20 History albuterol sulfate 90 mcg/actuation See Rx Instructions INHALATION 03/21/20 04/04/20 History aerosol inhaler .Q4-6H PRN g polyethylene glycol See Rx Instructions MISCELLANE BID 03/21/20 03/25/20 History potassium chloride 10 mEq 10 meq PO BID 03/21/20 03/26/20 History capsule,extended release furosemide See Rx Instructions .ROUTE .COMPLEX 03/25/20 04/04/20 History levothyroxine 88 mcg PO QAMAC #30 tab 03/26/20 Rx metoprolol succinate 12.5 mg PO DAILY #30 tab 03/26/20 Rx multivitamin with minerals 1 tab PO DAILY 03/26/20 03/26/20 History ondansetron 4 - 8 mg PO BIDP PRN 03/26/20 03/26/20 History Allergies Allergy/AdvReac Type Severity Reaction Status Date / Time hydromorphone [From Dilaudid] AdvReac Mild Vomiting Verified 03/25/20 09:32 Steroids Allergy Mild Rash Uncoded 03/09/20 20:13 EXAM Constitutional Vitals: Temp Pulse Resp BP Pulse Ox 98.2 F 92 H 20 104/72 99 04/04/20 11:59 04/04/20 15:10 04/04/20 15:10 04/04/20 14:17 04/04/20 15:10 Anxious but alert and oriented Head normocephalic Oral cavity moist No ear nose discharge Eye movement symmetrical Neck supple no lymphadenopathy S1-S2 tachycardia Nonlabored breathing Nondistended nontender abdomen Bilateral lower extremity lymphedema, right lower extremity erythema/induration along with serous fluid oozing lower calf, no joint swelling, multiple excoriation and scratch millan both calf Skin no suspicious lesion Psych anxious but alert cooperative Neuro normal higher function DATA Data Completed and Pending Labs: Labs from last 24 hours 04/04/20 04/04/20 04/04/20 14:55 12:20 12:19 WBC 8.9 RBC 5.12 Hgb 13.3 Hct 41.1 MCV 80.3 MCH 26.0 MCHC 32.4 RDW 18.8 H Plt Count 79 L MPV 11.1 H Total Counted 100 Seg Neutrophils % 75 Band Neutrophils % 9 Lymphocytes % 8 L Monocytes % (Manual) 8 Platelet Estimate Decreased RBC Morphology Abnormal Anisocytosis 1+ A VBG Lactic Acid Sodium Potassium Chloride Carbon Dioxide Anion Gap BUN Creatinine GFR Calculation Glucose Calcium Magnesium Total Bilirubin AST ALT Alkaline Phosphatase Troponin T NT-Pro-B Natriuret Pep Total Protein Albumin Globulin Albumin/Globulin Ratio Lipase Procalcitonin 4.33 Urine Color Pending Urine Appearance Pending Urine pH Pending Ur Specific [place] Pending Urine Protein Pending Urine Glucose (UA) Pending Urine Ketones Pending Urine Occult Blood Pending Urine Nitrate Pending Urine Bilirubin Pending Urine Urobilinogen Pending Ur Leukocyte Esterase Pending 04/04/20 04/04/20 04/04/20 12:19 12:19 12:19 WBC RBC Hgb Hct MCV MCH MCHC RDW Plt Count MPV Total Counted Seg Neutrophils % Band Neutrophils % Lymphocytes % Monocytes % (Manual) Platelet Estimate RBC Morphology Anisocytosis VBG Lactic Acid 3.6 H Sodium Potassium Chloride Carbon Dioxide Anion Gap BUN Creatinine GFR Calculation Glucose Calcium Magnesium 1.7 Total Bilirubin AST ALT Alkaline Phosphatase Troponin T 0.02 NT-Pro-B Natriuret Pep 97045.0 H Total Protein Albumin Globulin Albumin/Globulin Ratio Lipase 10 Procalcitonin Urine Color Urine Appearance Urine pH Ur Specific [place] Urine Protein Urine Glucose (UA) Urine Ketones Urine Occult Blood Urine Nitrate Urine Bilirubin Urine Urobilinogen Ur Leukocyte Esterase 04/04/20 12:19 WBC RBC Hgb Hct MCV MCH MCHC RDW Plt Count MPV Total Counted Seg Neutrophils % Band Neutrophils % Lymphocytes % Monocytes % (Manual) Platelet Estimate RBC Morphology Anisocytosis VBG Lactic Acid Sodium 134 Potassium 3.9 Chloride 95 L Carbon Dioxide 19 L Anion Gap 20.0 H BUN 60 H Creatinine 2.1 H GFR Calculation 24 Glucose 113 H Calcium 8.6 Magnesium Total Bilirubin 4.4 H AST 56 H ALT 62 H Alkaline Phosphatase 190 H Troponin T NT-Pro-B Natriuret Pep Total Protein 5.2 L Albumin 3.5 Globulin 1.7 L Albumin/Globulin Ratio 2.1 Lipase Procalcitonin Urine Color Urine Appearance Urine pH Ur Specific [place] Urine Protein Urine Glucose (UA) Urine Ketones Urine Occult Blood Urine Nitrate Urine Bilirubin Urine Urobilinogen Ur Leukocyte Esterase A/P Narrative A/P Narrative: * Severe sepsis with endorgan dysfunction. Likely secondary to lower extremity cellulitis. Pancultures/lactic acid trending. Antibiotic coverage including Rocephin/vancomycin. * Left lower extremity otitis-likely group B strep. Await cultures. Continue antibiotic coverage. Limb elevation. * Chronic CHF with EF 40%/severe MR TR. Will start beta-carmelo/ARB once shock resolves * Lower extreme lymphedema continue limb elevation. Wound care consult * Acute on chronic kidney injury. Creatinine 2.1. Baseline creatinine 1. Likely sepsis endorgan dysfunction. * History of COPD continue bronchodilators * DM type II continue basal prandial insulin/CC diet * Weakness and deconditioning continue PT OT * Hypothyroidism contraction * Full code * Prophylaxis fondaparinux Plan * Inpatient PCU admission * Vasopressors if indicated * Broad antibiotic coverage * Pancultures * Trend lactate * Pre-existing medical condition management home meds except for antihypertensives to be held * Limb elevation Time Spent With Patient Time: Total time spent is greater than 50% in coordination of care (as documented) at patient's floor/unit and/or counseling patient:
[2020-04-04 15:57] LABS: Appearance,Urine CLOUDY; Bacteria,Urine MANY /hpf (0); Bilirubin,Urine NEG (NEG); Color,Urine YELLOW; Culture Indicated,Urine YES; Glucose,Urine (UA) NEGATIVE (NEG); Ketones,Urine NEG (NEG); Leukocyte Esterase,Urine 500 /uL (NEG); Mucus,Urine FEW /hpf (0); Nitrate,Urine NEG (NEG); Protein,Urine 30 mg/dL (NEG); Specific Gravity,Urine 1.011 (1.000-1.035); Urine Blood >=1.0 mg/dL (<0.03); Urine Hyaline Cast 11 /lpf (0-2); Urine RBC 99 /hpf (0-1); Urine Squamous Epithelial Cell 3 /hpf (0-4); Urine WBC 155 /hpf (0-4); Urobilinogen,Urine NEG (NEG)
[2020-04-04] MEDS ORDERED: guaiFENesin/CODEINE 10 ML UDC PO PRN (16:17)
[2020-04-04] MEDS ORDERED: IPRATROPIUM/ALBUTEROL 3 ML AMPUL.NEB NEB PRN (16:17)
[2020-04-04] MEDS ORDERED: ONDANSETRON 4 MG/2 ML VIAL IV PRN (16:17)
[2020-04-04] MEDS ORDERED: ONDANSETRON 4 MG ODT TABLET SL PRN (16:17)
[2020-04-04] MEDS ORDERED: POLYETHYLENE GLYCOL 3350 17 GM PACKET PO PRN (16:17)
[2020-04-04] MEDS ORDERED: MAGNESIUM SULFATE 2 GM/50 ML BAG IV PRN (16:17)
[2020-04-04] MEDS ORDERED: VANCOMYCIN PER PHARMACY IV SCH (16:17)
[2020-04-04] MEDS ORDERED: ACETAMINOPHEN 650 MG/65 ML BOTTLE IV PRN (16:17)
[2020-04-04] MEDS ORDERED: DEXTROSE 50% 50 ML VIAL IV PRN (16:17)
[2020-04-04] MEDS ORDERED: BISACODYL 10 MG SUPP.RECT PR PRN (16:17)
[2020-04-04] MEDS ORDERED: DEXTROSE 31 GM ORAL.SUSP PO PRN (16:17)
[2020-04-04] MEDS ORDERED: POTASSIUM CHLORIDE 40 MEQ in DEXTROSE 5% IN WATER 500 ML IV PRN (16:17)
[2020-04-04] MEDS ORDERED: MELATONIN 3 MG TABLET PO PRN (16:17)
[2020-04-04] MEDS: INSULIN LISPRO 1 UNIT/0.01 ML UNIT SQ SCH ×2 (16:49→21:10)
[2020-04-04] MEDS ORDERED: VANCOMYCIN 1,000 MG in 0.9 % SODIUM CHLORIDE 250 ML IV ONE (17:00)
[2020-04-04] MEDS ORDERED: SENNOSIDES/DOCUSATE SODIUM 1 TAB TABLET PO SCH (21:00)
[2020-04-04] MEDS ORDERED: FUROSEMIDE 20 MG/2 ML VIAL IV SCH (21:00)
[2020-04-04] MEDS: DOCUSATE SODIUM 100 MG CAPSULE PO SCH (21:10)
[2020-04-04] MEDS: 0.9 % SODIUM CHLORIDE 10 ML SYRINGE IV SCH ×4 (21:45→23:16)
[2020-04-04] MEDS ORDERED: NOREPINEPHRINE BITARTRATE 16 MG in 0.9 % SODIUM CHLORIDE 234 ML IV SCH (22:30)
[2020-04-04] MEDS ORDERED: NOREPINEPHRINE BITARTRATE 4 MG/4 ML VIAL IV ONE (22:51)
[2020-04-04] MEDS: 0.9 % SODIUM CHLORIDE 250 ML IV SCH (23:19)
[2020-04-05] MEDS: ACETAMINOPHEN 325 MG TABLET PO PRN ×2 (04:34→10:15)
[2020-04-05] MEDS: 0.9 % SODIUM CHLORIDE 10 ML SYRINGE IV SCH ×6 (05:10→23:15)
[2020-04-05 06:33] LABS: Hematocrit 44.8 % (34.1-44.9); Hemoglobin 14.3 g/dL (11.2-15.7); Mean Cell Volume 82.7 fL (80.0-100.0); Mean Corpuscular HGB Conc 31.9 g/dL (31.0-36.0); Mean Platelet Volume 11.3 fL (7.4-10.4); Platelet Count 94 K/mcL (140-440); RBC 5.42 M/mcL (3.59-5.38); WBC 21.6 K/mcL (4.50-11.00)
[2020-04-05 06:43] LABS: Chloride 99 mmol/L (96-108)
[2020-04-05 06:46] LABS: ALT/SGPT 57 U/l (0-40); AST/SGOT 49 U/l (0-37); Albumin 2.9 gm/dL (3.2-5.2); Albumin/Globulin Ratio 1.1 (1.0-2.3); Alkaline Phosphatase 174 U/L (39-117); Bilirubin,Direct 2.8 mg/dL (0.0-0.3); Bilirubin,Total 4.5 mg/dL (0.0-1.0); Blood Urea Nitrogen 59 mg/dl (8-23); Calcium 8.6 mg/dl (8.6-10.4); Carbon Dioxide 18 mmol/L (22-30); Globulin 2.6 gm/dL (2.2-3.7); Glomerular Filtration Rate 29; Glucose 141 mg/dL (70-105); Lactate Dehydrogenase 509 U/L (94-250); Phosphorous 3.5 mg/dL (2.7-4.5); Triglycerides 72 mg/dl (<150); Uric Acid 14.7 mg/dL (2.5-8.0)
[2020-04-05 07:22] LABS: Vancomycin,Random 9.7 ug/mL
[2020-04-05] MEDS ORDERED: cefTRIAXone 2 GM in DEXTROSE 5% IN WATER 50 ML IV SCH (09:00)
[2020-04-05] MEDS ORDERED: FONDAPARINUX SODIUM 2.5 MG/0.5 ML SYRINGE SQ SCH (09:00)
[2020-04-05] MEDS ORDERED: MULTIVIT,THER IRON,CA,FA & MIN 1 TABLET PO SCH (09:00)
[2020-04-05 09:13] LABS: Anisocytosis 1+ (NONE SEEN); Band Neutrophils % 18 % (0-10); Eosinophils % (Manual) 1 % (0-7); Hypochromasia 1+ (NONE SEEN); Lymphocytes % 9 % (15-49); Metamyelocytes % 1 % (0-0); Monocytes % (Manual) 5 % (1-12); Platelet Estimate DECREASED (NORMAL); Polychromasia 1+ (NONE SEEN); RBC Morphology ABNORM (NORMAL); Segmented Neutrophils % 66 % (38-78)
[2020-04-05] MEDS ORDERED: HYDROmorphone 0.5 MG/0.5 ML SYRINGE IV PRN ×2 (09:21→14:15)
[2020-04-05] MEDS: INSULIN LISPRO 1 UNIT/0.01 ML UNIT SQ SCH ×4 (09:43→20:32)
[2020-04-05] MEDS: DOCUSATE SODIUM 100 MG CAPSULE PO SCH ×2 (09:52→20:31)
[2020-04-05] MEDS ORDERED: VANCOMYCIN 1,500 MG in 0.9 % SODIUM CHLORIDE 500 ML IV SCH (10:00)
--- NOTE | 2020-04-05 10:18 | Internal Med Progress Note ---
SUBJECTIVE Subjective Patient information: Note initiated : 04/05/20 at 10:12 am Service Date, if different from initiated Date: [] Patient: Cait Reyes 65 y/o F admitted on 04/04/20 for left leg swelling. Chief Complaint: History of present illness: Ms. Reyes is a 65 year old F with a history of NYHA class III systolic heart failure EF 40%/OR/MR/COPD/history of cardiac cirrhosis/CKD stage III/DM type II and chronic lymphedema presents to the ER with rapid onset of left leg swelling, pain, redness extending up to middle of the thigh overnight. Patient went to her son and return to her apartment last night and was in her baseline state of health, she woke up this morning with severe pain swelling redness chills and subjective fever. She has chronic lymphedema from underlying CHF and takes diuretics. She also has allergic dermatitis for which she is frequently scratches her lower extremities and has been doing so over the last couple of days. She denies history of MRSA or recurrent cellulitis. She denies recent trauma. Initial work-up in the ER was consistent with severe sepsis with hypotension/endorgan dysfunction including acute kidney injury with a creatinine of 2.1, blood pressure 60s. Patient was started on antibiotic coverage after cultures were drawn. Elevated lactic acid. Subsequently hospitalist service was consulted for admission At the time of my evaluation patient is alert and oriented. She is moderate distress from left lower extremity redness swelling and pain. She was able to endorse history as above. She denies cough, chest palpitation headache but endorses to weakness, myalgia, chills but no diaphoresis. Shortly following admission to ICU patient systolics down to 70s and worsening clinical status. Patient started on Levophed. Diuretics discontinued. On antibiotic coverage. 04/05-patient overnight on Levophed. Clinical improvement noted with more lucid alert map at goal. White count 21.6 from 8000. 18% bands. Worsening left lower extremity redness extending up to the groin. However induration and lymphedema improved. Cultures negative so far. Creatinine down to 1.8, bilirubin 4.5 up from 3.7, underlying cardiac cirrhosis. Urine culture gram- negative bacillus. On Rocephin/vancomycin. Blood cultures pending so far. Patient remains critically ill. Continue ICU care Constitutional Vitals: Vital Signs Temp Pulse Resp BP Pulse Ox 97.3 F 86 15 113/69 100 04/05/20 08:00 04/05/20 08:43 04/05/20 08:43 04/05/20 08:31 04/05/20 08:43 Period Temp Pulse Resp BP Sys/Garcia Pulse Ox Last 24 Hr 97.3 F-99.3 F 38-96 10-63 69-136/24-123 92-100 Intake and Output 04/04/20 04/05/20 04/05/20 21:59 05:59 13:59 Intake Total 1735 50 Output Total 600 870 Balance 1135 -820 Weight 94.12 kg alert and respond to commands Improved hemodynamics on pressors Covarrubias is draining dark urine Significant erythema redness extending up to the groin left lower extremity Intake & Output: Intake & Output 04/04/20 04/05/20 04/05/20 21:59 05:59 13:59 Intake Total 1735 50 Output Total 600 870 Balance 1135 -820 Weight 94.12 kg Intake: IV 1315 50 Sodium Chloride 0.9% 1,000 ml @ 1000 250 mls/hr IV .Q4H [facility] Rx#: [id number] Vancomycin 1,000 mg In Sodium 250 Chloride 0.9% 250 ml @ 250 mls/ hr IV ONCE ONE Rx#:[id number] Oral 420 Output: Urine Catheter Amount 870 Void Amount 600 Other: Meal Dinner Percent of Meal Consumed 50% Urine Appearance Clear Clear Uretheral (Covarrubias) Cloudy Urine Color Dark Yellow Bright Yellow Uretheral (Covarrubias) Bright Yellow Stool Size Small Stool Color Brown Yellow Stool Consistency Soft # Bowel Movements 1 OBJ DATA Labs CBC & Chem 7: 04/05/20 05:10 04/05/20 05:10 Labs: Abnormal Lab Results 04/05/20 04/05/20 04/04/20 05:10 05:10 14:55 WBC 21.6 H RBC 5.42 H RDW 20.0 H Plt Count 94 L MPV 11.3 H Band Neutrophils % 18 H Lymphocytes % 9 L Metamyelocytes % 1 H RBC Morphology Abnorm A Polychromasia 1+ A Hypochromasia 1+ A Anisocytosis 1+ A VBG Lactic Acid Chloride Carbon Dioxide 18 L Anion Gap 18.0 H BUN 59 H Creatinine 1.8 H Glucose 141 H Uric Acid 14.7 H Total Bilirubin 4.5 H Direct Bilirubin 2.8 H GGT 65 H AST 49 H ALT 57 H Alkaline Phosphatase 174 H Lactate Dehydrogenase 509 H NT-Pro-B Natriuret Pep Total Protein 5.5 L Albumin 2.9 L Globulin Urine Protein 30 A Urine Occult Blood >=1.0 A Ur Leukocyte Esterase 500 A Urine RBC 99 H Urine WBC 155 H Urine Bacteria Many A Hyaline Casts 11 H 04/04/20 04/04/20 04/04/20 12:20 12:19 12:19 WBC RBC RDW 18.8 H Plt Count 79 L MPV 11.1 H Band Neutrophils % Lymphocytes % 8 L Metamyelocytes % RBC Morphology Polychromasia Hypochromasia Anisocytosis 1+ A VBG Lactic Acid 3.6 H Chloride Carbon Dioxide Anion Gap BUN Creatinine Glucose Uric Acid Total Bilirubin Direct Bilirubin GGT AST ALT Alkaline Phosphatase Lactate Dehydrogenase NT-Pro-B Natriuret Pep 03536.0 H Total Protein Albumin Globulin Urine Protein Urine Occult Blood Ur Leukocyte Esterase Urine RBC Urine WBC Urine Bacteria Hyaline Casts 04/04/20 12:19 WBC RBC RDW Plt Count MPV Band Neutrophils % Lymphocytes % Metamyelocytes % RBC Morphology Polychromasia Hypochromasia Anisocytosis VBG Lactic Acid Chloride 95 L Carbon Dioxide 19 L Anion Gap 20.0 H BUN 60 H Creatinine 2.1 H Glucose 113 H Uric Acid Total Bilirubin 4.4 H Direct Bilirubin GGT AST 56 H ALT 62 H Alkaline Phosphatase 190 H Lactate Dehydrogenase NT-Pro-B Natriuret Pep Total Protein 5.2 L Albumin Globulin 1.7 L Urine Protein Urine Occult Blood Ur Leukocyte Esterase Urine RBC Urine WBC Urine Bacteria Hyaline Casts Meds: Medications Acetaminophen (Tylenol) 650 mg PO Q4-6HP PRN; Protocol PRN Reason: Per Pain Protocol/Fever > 101 Last Admin: 04/05/20 04:34 Dose: 650 mg Documented by: Albuterol/Ipratropium (Duoneb) 3 ml NEB Q4HP PRN PRN Reason: Shortness Of Breath Bisacodyl (Dulcolax) 10 mg OR Q2-3DAYS PRN PRN Reason: Constipation Dextrose (Dextrose 50%) 0 ml IV UD PRN PRN Reason: Hypoglycemia Diagnostic Test (Pha) (Accu-Chek) 1 each FS ACHS [facility] Last Admin: 04/05/20 07:00 Dose: 1 each Documented by: Docusate Sodium (Colace) 100 mg PO BID [facility] Last Admin: 04/05/20 09:52 Dose: Not Given Documented by: Fondaparinux (Arixtra) 2.5 mg SQ DAILY [facility] Last Admin: 04/05/20 09:57 Dose: 2.5 mg Documented by: Glucose (Insta-Glucose) 15 gm PO PRN PRN PRN Reason: Hypoglycemia Guaifenesin/Codeine Phosphate (Robitussin Ac) 10 ml PO Q4HP PRN PRN Reason: Cough Hydromorphone HCl (Dilaudid) 0.25 mg IV Q4-6HP PRN PRN Reason: Per Pain Protocol Potassium Chloride 40 meq/ (Dextrose) 520 mls @ 130 mls/hr IV UD PRN PRN Reason: K+ = or < 3.5 Acetaminophen (Ofirmev) 650 mg in 65 mls @ 130 mls/hr IV Q6HP PRN; Protocol PRN Reason: Per Pain Protocol/Fever > 101 Last Infusion: 04/04/20 21:53 Dose: Infused Documented by: Magnesium Sulfate (Magnesium Sulfate) 2 gm in 50 mls @ 50 mls/hr IV UD PRN PRN Reason: MG = or < 1.7 Last Infusion: 04/04/20 23:17 Dose: Infused Documented by: Ceftriaxone Sodium 2 gm/ (Dextrose) 50 mls @ 100 mls/hr IV Q24H [facility]; Protocol Last Admin: 04/05/20 09:54 Dose: 100 mls/hr Documented by: Norepinephrine Bitartrate 16 (mg/ Sodium Chloride) 250 mls @ 9.375 mls/hr IV Q24H [facility]; Protocol Last Admin: 04/04/20 23:05 Dose: Not Given Documented by: Sodium Chloride (Sodium Chloride 0.9%) 250 mls @ 20 mls/hr IV .[id number] [facility] Last Admin: 04/04/20 23:19 Dose: 20 mls/hr Documented by: Vancomycin HCl 1,500 mg/ (Sodium Chloride) 500 mls @ 333.3 mls/hr IV Q24H [facility] Insulin Human Lispro (Humalog) 0 unit SQ ACHS [facility]; Protocol Last Admin: 04/05/20 09:43 Dose: Not Given Documented by: Iron Carb/Multivit/[place]/Folic Acid (Multivitamin W/Minerals) 1 tab PO DAILY [facility] Last Admin: 04/05/20 09:52 Dose: 1 tab Documented by: Melatonin (Melatonin 3mg Tablet) 3 mg PO HSP PRN PRN Reason: Insomnia Ondansetron HCl (Zofran Odt) 4 mg SL Q4-6HP PRN; Protocol PRN Reason: Nausea And Vomiting Ondansetron HCl (Zofran) 4 mg IV Q4-6HP PRN; Protocol PRN Reason: Nausea And Vomiting Polyethylene Glycol (Miralax) 17 gm PO DAILYP PRN PRN Reason: Constipation Senna/Docusate Sodium (Senna Plus Tablet) 1 tab PO HS [facility] Last Admin: 04/04/20 21:32 Dose: Not Given Documented by: Sodium Chloride (Saline Flush) 10 ml IV Q8 [facility] Last Admin: 04/05/20 05:10 Dose: 10 ml Documented by: Vancomycin HCl (Vancomycin Per Pharmacy) 1 order IV UD [facility]; Protocol A/P Narrative A/P Narrative: * Septic shock with multiple organ dysfunction -continue vasopressors . Await pancultures, pancultures/continue Rocephin/vancomycin. * Left lower extremity cellulitis-likely group B strep. Clinically worsening with white count at 21,000 up from 8, increase redness extending up to the groin. No drainage noted. Ultrasound lower extremity negative for DVT, await cultures. Continue vancomycin, Rocephin, limb elevation * Complicated GNR UTI-on antibiotic coverage. De-escalate based on culture sensitivities. * Chronic CHF with EF 40%/severe MR TR. beta-blockers on hold until shock resolved * Lower extreme lymphedema continue limb elevation. Wound care consult * Acute on chronic kidney injury. Creatinine down to 1.8 from 2.1. Baseline creatinine 1. Likely sepsis endorgan dysfunction. * History of cirrhosis secondary congestive hepatopathy. Bilirubin at 4.5. Continue monitoring. * History of COPD continue bronchodilators * DM type II continue basal prandial insulin/CC diet * Weakness and deconditioning continue PT OT * Hypothyroidism contraction * Full code * Prophylaxis fondaparinux Plan * Wean vasopressors as tolerated * Antibiotic coverage * Limb elevation/compression wraps * Pre-existing medical condition management home meds except for antihypertensives * Limb elevation Time Spent With Patient Time: Critical care time in excess of 35 minutes management of septic shock QUALITY VTE Deep Vein Thrombosis/Pulmonary Embolism Present on Admission: No
[2020-04-05] MEDS: 0.9 % SODIUM CHLORIDE 250 ML IV SCH ×4 (11:22→15:32)
[2020-04-05] MEDS ORDERED: ONDANSETRON 4 MG/2 ML VIAL IV PRN (13:41)
[2020-04-05] MEDS ORDERED: POTASSIUM CHLORIDE 40 MEQ in DEXTROSE 5% IN WATER 500 ML IV PRN (14:15)
[2020-04-05] MEDS ORDERED: DEXTROSE 50% 50 ML VIAL IV PRN (14:15)
[2020-04-05] MEDS ORDERED: MAGNESIUM SULFATE 2 GM/50 ML BAG IV PRN (14:15)
[2020-04-05] MEDS ORDERED: VANCOMYCIN PER PHARMACY IV SCH (14:15)
[2020-04-05] MEDS ORDERED: IPRATROPIUM/ALBUTEROL 3 ML AMPUL.NEB NEB PRN (14:15)
[2020-04-05] MEDS ORDERED: DEXTROSE 31 GM ORAL.SUSP PO PRN (14:15)
[2020-04-05] MEDS ORDERED: BISACODYL 10 MG SUPP.RECT PR PRN (14:15)
[2020-04-05] MEDS ORDERED: guaiFENesin/DEXTROMETHORPHAN ORAL SOL PO PRN (14:22)
[2020-04-05] MEDS: ACETAMINOPHEN 650 MG/65 ML BOTTLE IV PRN (19:52)
[2020-04-05] MEDS ORDERED: POTASSIUM CHLORIDE 20 MEQ TABLET PO ONE (20:05)
[2020-04-05] MEDS ORDERED: 0.9 % SODIUM CHLORIDE 250 ML IV ONE (20:05)
[2020-04-05] MEDS: HEPARIN 5,000 UNIT/ML VIAL SQ SCH (20:32)
[2020-04-05] MEDS: HYDROCORTISONE SOD SUCC 100 MG VIAL IV SCH (20:50)
[2020-04-05] MEDS: ONDANSETRON 4 MG ODT TABLET SL PRN (21:29)
[2020-04-05] MEDS ORDERED: NOREPINEPHRINE BITARTRATE 16 MG in 0.9 % SODIUM CHLORIDE 234 ML IV SCH (22:30)
[2020-04-06] MEDS: ACETAMINOPHEN 650 MG/65 ML BOTTLE IV PRN (02:35)
[2020-04-06] MEDS: 0.9 % SODIUM CHLORIDE 10 ML SYRINGE IV SCH ×6 (02:38→20:53)
[2020-04-06] MEDS: MELATONIN 3 MG TABLET PO PRN ×2 (02:38→20:53)
[2020-04-06] MEDS: HYDROCORTISONE SOD SUCC 100 MG VIAL IV SCH ×2 (06:13→14:31)
[2020-04-06 06:42] LABS: Hematocrit 39.4 % (34.1-44.9); Hemoglobin 12.7 g/dL (11.2-15.7); Mean Cell Volume 80.6 fL (80.0-100.0); Mean Corpuscular HGB Conc 32.2 g/dL (31.0-36.0); Mean Platelet Volume 11.2 fL (7.4-10.4); RBC 4.89 M/mcL (3.59-5.38); Red Cell Distribution Width 19.3 % (11.5-14.5); WBC 17.6 K/mcL (4.50-11.00)
[2020-04-06 06:43] LABS: Platelet Count 72 K/mcL (140-440)
[2020-04-06] MEDS: 0.9 % SODIUM CHLORIDE 250 ML IV SCH ×2 (06:51→06:52)
[2020-04-06 07:01] LABS: ALT/SGPT 44 U/l (0-40); AST/SGOT 26 U/l (0-37); Albumin 2.6 gm/dL (3.2-5.2); Albumin/Globulin Ratio 1.1 (1.0-2.3); Alkaline Phosphatase 189 U/L (39-117); Bilirubin,Direct 2.6 mg/dL (0.0-0.3); Bilirubin,Total 3.4 mg/dL (0.0-1.0); Blood Urea Nitrogen 57 mg/dl (8-23); Carbon Dioxide 20 mmol/L (22-30); Chloride 99 mmol/L (96-108); Globulin 2.4 gm/dL (2.2-3.7); Glomerular Filtration Rate 36; Glucose 159 mg/dL (70-105); Lactate Dehydrogenase 361 U/L (94-250); Phosphorous 3.1 mg/dL (2.7-4.5); Triglycerides 73 mg/dl (<150); Uric Acid 13.7 mg/dL (2.5-8.0)
[2020-04-06] MEDS: INSULIN LISPRO 1 UNIT/0.01 ML UNIT SQ SCH ×4 (07:31→20:40)
[2020-04-06] MEDS: LEVOTHYROXINE 88 MCG TABLET PO SCH (07:32)
[2020-04-06 07:46] LABS: Band Neutrophils % 13 % (0-10); Lymphocytes % 3 % (15-49); Metamyelocytes % 2 % (0-0); Monocytes % (Manual) 6 % (1-12); Platelet Estimate DECREASED (NORMAL); Polychromasia FEW (NONE SEEN); RBC Morphology ABNORM (NORMAL); Segmented Neutrophils % 76 % (38-78)
[2020-04-06] MEDS: cefTRIAXone 2 GM in DEXTROSE 5% IN WATER 50 ML IV SCH (08:57)
[2020-04-06] MEDS: MULTIVIT,THER IRON,CA,FA & MIN 1 TABLET PO SCH (08:57)
[2020-04-06] MEDS: ASPIRIN 81 MG TAB.CHEW PO SCH (08:57)
[2020-04-06] MEDS: HEPARIN 5,000 UNIT/ML VIAL SQ SCH ×2 (08:57→20:43)
[2020-04-06] MEDS: DOCUSATE SODIUM 100 MG CAPSULE PO SCH ×2 (08:58→20:40)
[2020-04-06] MEDS ORDERED: FONDAPARINUX SODIUM 2.5 MG/0.5 ML SYRINGE SQ SCH (09:00)
[2020-04-06] MEDS: VANCOMYCIN 1,500 MG in 0.9 % SODIUM CHLORIDE 500 ML IV SCH (10:00)
[2020-04-06] MEDS: HYDROcodone/APAP 5/325MG TABLET PO PRN (11:43)
--- NOTE | 2020-04-06 18:10 | Internal Med Progress Note ---
SUBJECTIVE Subjective Patient information: Note initiated : 04/06/20 at 6:08 pm Service Date, if different from initiated Date: [] Patient: Cait Reyes 65 y/o F admitted on 04/04/20 for left leg swelling. Chief Complaint: [] History of present illness: Ms. Reyes is a 65 year old F with a history of NYHA class III systolic heart failure EF 40%/PA/MR/COPD/history of cardiac cirrhosis/CKD stage III/DM type II and chronic lymphedema presents to the ER with rapid onset of left leg swelling, pain, redness extending up to middle of the thigh overnight. Patient went to her son and return to her apartment last night and was in her baseline state of health, she woke up this morning with sev ere pain swelling redness chills and subjective fever. She has chronic lymphedema from underlying CHF and takes diuretics. She also has allergic dermatitis for which she is frequently scratches her lower extremities and has been doing so over the last couple of days. She denies history of MRSA or recurrent cellulitis. She denies recent trauma. Initial work-up in the ER was consistent with severe sepsis with hypotension/endorgan dysfunction including acute kidney injury with a creatinine of 2.1, blood pressure 60s. Patient was started on antibiotic coverage after cultures were drawn. Elevated lactic acid. Subsequently hospitalist service was consulted for admission At the time of my evaluation patient is alert and oriented. She is moderate distress from left lower extremity redness swelling and pain. She was able to endorse history as above. She denies cough, chest palpitation headache but endorses to weakness, myalgia, chills but no diaphoresis. Shortly following admission to ICU patient systolics down to 70s and worsening clinical status. Patient started on Levophed. Diuretics discontinued. On antibiotic coverage. 04/05-patient overnight on Levophed. Clinical improvement noted with more lucid alert map at goal. White count 21.6 from 8000. 18% bands. Worsening left lower extremity redness extending up to the groin. However induration and lymphedema improved. Cultures negative so far. Creatinine down to 1.8, bilirubin 4.5 up from 3.7, underlying cardiac cirrhosis. Urine culture gram- negative bacillus. On Rocephin/vancomycin. Blood cultures pending so far. Patient remains critically ill. Continue ICU care 04/06 Patient complains of pain from Covarrubias catheter. Otherwise the patient feels better. Her blood pressure is improving. This morning Levophed was off. Oxygen saturation is fine on room air WBC went down to 17.6 from 21.6 yesterday. Creatinine improving to 1.5 today Urine culture showed positive for E. coli, sensitive to all antibiotics ROS: Positive for the symptoms mentioned above. All other systems were reviewed and are negative. Constitutional Vitals: Vital Signs Temp Pulse Resp BP Pulse Ox 97.7 F 89 19 110/88 99 04/06/20 17:01 04/06/20 07:00 04/06/20 17:56 04/06/20 17:01 04/06/20 17:56 Period Temp Pulse Resp BP Sys/Garcia Pulse Ox Last 24 Hr 96.9 F-98.7 F 79-101 11-24 88-122/61-91 95-100 Intake and Output 04/06/20 04/06/20 04/06/20 05:59 13:59 21:59 Intake Total 325 804 520 Output Total 335 275 Balance -10 529 520 Intake & Output: Intake & Output 04/06/20 04/06/20 04/06/20 05:59 13:59 21:59 Intake Total 325 804 520 Output Total 335 275 Balance -10 529 520 Intake: IV 85 804 520 Sodium Chloride 0.9% 250 ml @ 250 20 mls/hr IV .[id number] [facility] Rx#: [id number] Levophed 16 mg In Sodium 20 4 Chloride 0.9% 234 ml @ 10 MCG/ MIN 9.375 mls/hr IV Q24H [facility] Rx #:[id number] Potassium Chloride 40 Meq In 520 Dextrose 5% in Water 500 ml @ 130 mls/hr IV UD PRN Rx#: [id number] Vancomycin 1,500 mg In Sodium 500 Chloride 0.9% 500 ml @ 333.3 mls/hr IV Q24H [facility] Rx#: [id number] Rocephin 2 gm In Dextrose 5% in 50 Water 50 ml @ 100 mls/hr IV Q24H [facility] Rx#:[id number] Oral 240 Output: Urine Catheter Amount 335 275 Other: Meal Breakfast Percent of Meal Consumed 50% Feeding Ability Assist with Tray Set Up Urine Appearance Sediment Clear Uretheral (Covarrubias) Sediment Sediment Urine Color Dark Yellow Light [place] Blood Tinged Uretheral (Covarrubias) Dark Yellow Dark Yellow Stool Size Small Moderate Stool Color Brown Brown Stool Consistency Soft Soft Formed # Bowel Movements 1 # of times incontinent of 1 Bowels Additional findings Additional findings: General - No acute distress Eyes - PERRLA, EOM intact ENT no rhinorrhea, no noticeable or palpable swelling, no redness or rash around throat or on face Neck supple, no JVD, no thyromegaly Respiratory: Lungs - couerse BS, no use of accessary muscles. Cardiovascular - RRR no m/r/g, GI - Normal bowel sounds, no distended, soft. Extremeties - Bilateral lower extremity lymphedema, left lower extremity erythema/induration until groin area, no joint swelling Hemo/lymphatic/immune no lymphadenopathy Neurological Alert and oriented x 3, no focal neurological deficits. Psychiatry flat affect OBJ DATA Labs CBC & Chem 7: 04/06/20 05:10 04/06/20 05:10 Labs: Abnormal Lab Results 04/06/20 04/06/20 04/05/20 05:10 05:10 05:10 WBC 17.6 H RBC RDW 19.3 H Plt Count 72 L MPV 11.2 H Band Neutrophils % 13 H Lymphocytes % 3 L Metamyelocytes % 2 H RBC Morphology Abnorm A Polychromasia Few A Hypochromasia Anisocytosis VBG Lactic Acid Chloride Carbon Dioxide 20 L 18 L Anion Gap 18.0 H BUN 57 H 59 H Creatinine 1.5 H 1.8 H Glucose 159 H 141 H Uric Acid 13.7 H 14.7 H Calcium 8.0 L Total Bilirubin 3.4 H 4.5 H Direct Bilirubin 2.6 H 2.8 H GGT 56 H 65 H AST 49 H ALT 44 H 57 H Alkaline Phosphatase 189 H 174 H Lactate Dehydrogenase 361 H 509 H NT-Pro-B Natriuret Pep Total Protein 5.0 L 5.5 L Albumin 2.6 L 2.9 L Globulin Urine Protein Urine Occult Blood Ur Leukocyte Esterase Urine RBC Urine WBC Urine Bacteria Hyaline Casts 04/05/20 04/04/20 04/04/20 05:10 14:55 12:20 WBC 21.6 H RBC 5.42 H RDW 20.0 H 18.8 H Plt Count 94 L 79 L MPV 11.3 H 11.1 H Band Neutrophils % 18 H Lymphocytes % 9 L 8 L Metamyelocytes % 1 H RBC Morphology Abnorm A Polychromasia 1+ A Hypochromasia 1+ A Anisocytosis 1+ A 1+ A VBG Lactic Acid Chloride Carbon Dioxide Anion Gap BUN Creatinine Glucose Uric Acid Calcium Total Bilirubin Direct Bilirubin GGT AST ALT Alkaline Phosphatase Lactate Dehydrogenase NT-Pro-B Natriuret Pep Total Protein Albumin Globulin Urine Protein 30 A Urine Occult Blood >=1.0 A Ur Leukocyte Esterase 500 A Urine RBC 99 H Urine WBC 155 H Urine Bacteria Many A Hyaline Casts 11 H 04/04/20 04/04/20 04/04/20 12:19 12:19 12:19 WBC RBC RDW Plt Count MPV Band Neutrophils % Lymphocytes % Metamyelocytes % RBC Morphology Polychromasia Hypochromasia Anisocytosis VBG Lactic Acid 3.6 H Chloride 95 L Carbon Dioxide 19 L Anion Gap 20.0 H BUN 60 H Creatinine 2.1 H Glucose 113 H Uric Acid Calcium Total Bilirubin 4.4 H Direct Bilirubin GGT AST 56 H ALT 62 H Alkaline Phosphatase 190 H Lactate Dehydrogenase NT-Pro-B Natriuret Pep 60342.0 H Total Protein 5.2 L Albumin Globulin 1.7 L Urine Protein Urine Occult Blood Ur Leukocyte Esterase Urine RBC Urine WBC Urine Bacteria Hyaline Casts Meds: Medications Hydrocodone Bitart/Acetaminophen ([place] 5/325mg) 1 tab PO Q6HP PRN; Protocol PRN Reason: Per Pain Protocol Last Admin: 04/06/20 11:43 Dose: 1 tab Documented by: Albuterol/Ipratropium (Duoneb) 3 ml NEB Q4HP PRN PRN Reason: Shortness Of Breath Aspirin (Aspirin) 81 mg PO DAILY [facility] Last Admin: 04/06/20 08:57 Dose: 81 mg Documented by: Bisacodyl (Dulcolax) 10 mg PA Q2-3DAYS PRN PRN Reason: Constipation Dextrose (Dextrose 50%) 0 ml IV UD PRN PRN Reason: Hypoglycemia Diagnostic Test (Pha) (Accu-Chek) 1 each FS ACHS [facility] Last Admin: 04/06/20 17:01 Dose: 1 each Documented by: Docusate Sodium (Colace) 100 mg PO BID [facility] Last Admin: 04/06/20 08:58 Dose: Not Given Documented by: Glucose (Insta-Glucose) 15 gm PO PRN PRN PRN Reason: Hypoglycemia Guaifenesin (Robitussin Dm) 10 ml PO Q4HP PRN PRN Reason: Cough Heparin Sodium (Porcine) (Heparin) 5,000 unit SQ Q12 [facility] Last Admin: 04/06/20 08:57 Dose: 5,000 unit Documented by: Acetaminophen (Ofirmev) 650 mg in 65 mls @ 130 mls/hr IV Q6HP PRN; Protocol PRN Reason: Per Pain Protocol/Fever > 101 Last Infusion: 04/06/20 03:05 Dose: Infused Documented by: Ceftriaxone Sodium 2 gm/ (Dextrose) 50 mls @ 100 mls/hr IV Q24H [facility]; Protocol Last Infusion: 04/06/20 10:30 Dose: Infused Documented by: Magnesium Sulfate (Magnesium Sulfate) 2 gm in 50 mls @ 50 mls/hr IV UD PRN PRN Reason: MG = or < 1.7 Potassium Chloride 40 meq/ (Dextrose) 520 mls @ 130 mls/hr IV UD PRN PRN Reason: K+ = or < 3.5 Last Infusion: 04/06/20 14:15 Dose: Infused Documented by: Vancomycin HCl 1,500 mg/ (Sodium Chloride) 500 mls @ 333.3 mls/hr IV Q24H [facility] Last Infusion: 04/06/20 11:31 Dose: Infused Documented by: Insulin Human Lispro (Humalog) 0 unit SQ ACHS [facility]; Protocol Last Admin: 04/06/20 17:04 Dose: 3 units Documented by: Iron Carb/Multivit/[place]/Folic Acid (Multivitamin W/Minerals) 1 tab PO DAILY [facility] Last Admin: 04/06/20 08:57 Dose: 1 tab Documented by: Levothyroxine Sodium (Synthroid) 88 mcg PO QAMAC [facility] Last Admin: 04/06/20 07:32 Dose: 88 mcg Documented by: Melatonin (Melatonin 3mg Tablet) 3 mg PO HSP PRN PRN Reason: Insomnia Last Admin: 04/06/20 02:38 Dose: 3 mg Documented by: Ondansetron HCl (Zofran Odt) 4 mg SL Q6HP PRN; Protocol PRN Reason: Nausea And Vomiting Last Admin: 04/05/20 21:29 Dose: 4 mg Documented by: Ondansetron HCl (Zofran) 4 mg IV Q6HP PRN; Protocol PRN Reason: Nausea And Vomiting Sodium Chloride (Saline Flush) 10 ml IV Q8 [facility] Last Admin: 04/06/20 14:29 Dose: 10 ml Documented by: Vancomycin HCl (Vancomycin Per Pharmacy) 1 order IV UD [facility]; Protocol A/P Narrative A/P Narrative: 1. Septic shock with multiple organ dysfunction - trying to wean off vasopressors (off levaphed this morning). Await pancultures, pancultures/continue Rocephin/vancomycin. 2. Left lower extremity cellulitis-likely group B strep. Clinically worsening, increase redness extending up to the groin. No drainage noted. Ultrasound lower extremity negative for DVT, await cultures. Continue vancomycin, Rocephin, limb elevation 3. UTI-on antibiotic coverage. Urine culture positive for E. coli which is sensitive to all antibiotics. 4. Chronic CHF with EF 40%/severe MR TR. beta-blockers on hold until shock resolved 5. Lower extreme lymphedema continue limb elevation. Wound care consult 6. Acute on chronic kidney injury. Creatinine down to 1.5 from 2.1. Baseline creatinine 1. Likely sepsis endorgan dysfunction. Repeat the renal function in morning 7. History of cirrhosis secondary congestive hepatopathy. Bilirubin at 4.5. Continue monitoring. 8. History of COPD continue bronchodilators 9. DM type II continue basal prandial insulin/CC diet 10. Weakness and deconditioning continue PT OT 11. Hypothyroidism contraction 12. Morbid obesity -follow with the PCP Full code Prophylaxis Heparin Plan off vasopressors, monitor vital signs Antibiotic coverage Limb elevation/compression wraps Pre-existing medical condition management home meds except for antihypertensives Limb elevation Time Spent With Patient Time: Total time spent is greater than 50% in coordination of care (as documented) at patient's floor/unit and/or counseling patient: QUALITY VTE Deep Vein Thrombosis/Pulmonary Embolism Present on Admission: No
[2020-04-06] MEDS ORDERED: 0.9 % SODIUM CHLORIDE 250 ML IV ONE (20:46)
[2020-04-07] MEDS: 0.9 % SODIUM CHLORIDE 10 ML SYRINGE IV SCH ×4 (05:55→21:21)
[2020-04-07] MEDS: LEVOTHYROXINE 88 MCG TABLET PO SCH (07:27)
[2020-04-07] MEDS: INSULIN LISPRO 1 UNIT/0.01 ML UNIT SQ SCH ×5 (07:31→20:34)
[2020-04-07 08:28] LABS: Chloride 101 mmol/L (96-108)
[2020-04-07 08:41] LABS: ALT/SGPT 49 U/l (0-40); AST/SGOT 35 U/l (0-37); Alkaline Phosphatase 226 U/L (39-117); Bilirubin,Direct 2.1 mg/dL (0.0-0.3); Blood Urea Nitrogen 55 mg/dl (8-23); Calcium 8.8 mg/dl (8.6-10.4); Carbon Dioxide 16 mmol/L (22-30); Globulin 2.9 gm/dL (2.2-3.7); Glomerular Filtration Rate 33; Glucose 100 mg/dL (70-105); Lactate Dehydrogenase 385 U/L (94-250); Phosphorous 3.7 mg/dL (2.7-4.5); Triglycerides 65 mg/dl (<150); Uric Acid 13.1 mg/dL (2.5-8.0)
[2020-04-07] MEDS: ONDANSETRON 4 MG ODT TABLET SL PRN (08:46)
[2020-04-07] MEDS: cefTRIAXone 2 GM in DEXTROSE 5% IN WATER 50 ML IV SCH (08:46)
[2020-04-07] MEDS: HYDROcodone/APAP 5/325MG TABLET PO PRN (08:47)
[2020-04-07] MEDS: MULTIVIT,THER IRON,CA,FA & MIN 1 TABLET PO SCH (08:47)
[2020-04-07] MEDS: ASPIRIN 81 MG TAB.CHEW PO SCH (08:47)
[2020-04-07] MEDS: DOCUSATE SODIUM 100 MG CAPSULE PO SCH ×2 (09:02→20:34)
[2020-04-07 09:49] LABS: Hemoglobin 13.8 g/dL (11.2-15.7); Mean Cell Volume 81.3 fL (80.0-100.0); Mean Corpuscular HGB Conc 32.1 g/dL (31.0-36.0); Platelet Count 57 K/mcL (140-440); RBC 5.29 M/mcL (3.59-5.38); Red Cell Distribution Width 19.8 % (11.5-14.5); WBC 14.6 K/mcL (4.50-11.00)
[2020-04-07 09:53] LABS: Anisocytosis 1+ (NONE SEEN); Band Neutrophils % 6 % (0-10); Lymphocytes % 9 % (15-49); Monocytes % (Manual) 4 % (1-12); Platelet Estimate DECREASED (NORMAL); Polychromasia 1+ (NONE SEEN); RBC Morphology ABNORM (NORMAL); Segmented Neutrophils % 81 % (38-78)
[2020-04-07] MEDS: VANCOMYCIN 1,500 MG in 0.9 % SODIUM CHLORIDE 500 ML IV SCH (10:00)
--- NOTE | 2020-04-07 11:47 | XRay Report ---
HISTORY: Cardiomegaly, peripheral leg swelling FINDINGS: The heart is severely enlarged and there has been a small increase in the size since 04/04/20. There is no pulmonary edema or pleural effusion. No infiltrate is present. IMPRESSION: Cardiomegaly, but without congestive heart failure Interpreted and Authenticated by: Oniel Logan 04/07/20
[2020-04-07] MEDS ORDERED: LEVOFLOXACIN 750 MG/150 ML BAG IV SCH (15:00)
[2020-04-07] MEDS ORDERED: VANCOMYCIN PER PHARMACY IV SCH ×2 (15:30→16:48)
[2020-04-07] MEDS: HEPARIN 5,000 UNIT/ML VIAL SQ SCH (16:34)
[2020-04-07] MEDS ORDERED: MAGNESIUM SULFATE 2 GM/50 ML BAG IV PRN (16:48)
[2020-04-07] MEDS ORDERED: IPRATROPIUM/ALBUTEROL 3 ML AMPUL.NEB NEB PRN (16:48)
[2020-04-07] MEDS ORDERED: BISACODYL 10 MG SUPP.RECT PR PRN (16:48)
[2020-04-07] MEDS ORDERED: guaiFENesin/DEXTROMETHORPHAN ORAL SOL PO PRN (16:48)
[2020-04-07] MEDS ORDERED: ONDANSETRON 4 MG ODT TABLET SL PRN (16:48)
[2020-04-07] MEDS ORDERED: MELATONIN 3 MG TABLET PO PRN (16:48)
[2020-04-07] MEDS ORDERED: POTASSIUM CHLORIDE 40 MEQ in DEXTROSE 5% IN WATER 500 ML IV PRN (16:48)
[2020-04-07] MEDS ORDERED: DEXTROSE 31 GM ORAL.SUSP PO PRN (16:48)
[2020-04-07] MEDS ORDERED: HYDROcodone/APAP 5/325MG TABLET PO PRN (16:48)
[2020-04-07] MEDS ORDERED: DEXTROSE 50% 50 ML VIAL IV PRN (16:48)
[2020-04-07] MEDS ORDERED: ACETAMINOPHEN 650 MG/65 ML BOTTLE IV PRN (16:48)
[2020-04-07] MEDS ORDERED: ONDANSETRON 4 MG/2 ML VIAL IV PRN (16:48)
--- NOTE | 2020-04-07 19:08 | Internal Med Progress Note ---
SUBJECTIVE Subjective Patient information: Note initiated : 04/07/20 at 6:58 pm Service Date, if different from initiated Date: [] Patient: Cait Reyes 65 y/o F admitted on 04/04/20 for left leg swelling. Chief Complaint: [] Ms. Reyes is a 65 year old F with a history of NYHA class III systolic heart failure EF 40%/NC/MR/COPD/history of cardiac cirrhosis/CKD stage III/DM type II and chronic lymphedema presents to the ER with rapid onset of left leg swelling, pain, redness extending up to middle of the thigh overnight. Patient went to her son and return to her apartment last night and was in her baseline state of health, she woke up this morning with severe pain swelling redness chills and subjective fever. She has chronic lymphedema from underlying CHF and takes diuretics. She also has allergic dermatitis for which she is frequently scratches her lower extremities and has been doing so over the last couple of days. She denies history of MRSA or recurrent cellulitis. She denies recent trauma. Initial work-up in the ER was consistent with severe sepsis with hypotension/e ndorgan dysfunction including acute kidney injury with a creatinine of 2.1, blood pressure 60s. Patient was started on antibiotic coverage after cultures were drawn. Elevated lactic acid. Subsequently hospitalist service was consulted for admission At the time of my evaluation patient is alert and oriented. She is moderate distress from left lower extremity redness swelling and pain. She was able to endorse history as above. She denies cough, chest palpitation headache but endorses to weakness, myalgia, chills but no diaphoresis. Shortly following admission to ICU patient systolics down to 70s and worsening clinical status. Patient started on Levophed. Diuretics discontinued. On a ntibiotic coverage. 04/05-patient overnight on Levophed. Clinical improvement noted with more lucid alert map at goal. White count 21.6 from 8000. 18% bands. Worsening left lower extremity redness extending up to the groin. However induration and lymphedema improved. Cultures negative so far. Creatinine down to 1.8, bilirubin 4.5 up from 3.7, underlying cardiac cirrhosis. Urine culture gram- negative bacillus. On Rocephin/vancomycin. Blood cultures pending so far. Patient remains critically ill. Continue ICU care 04/06 Patient complains of pain from Covarrubias catheter. Otherwise the patient feels better. Her blood pressure is improving. This morning Levophed was off. Oxygen saturation is fine on room air WBC went down to 17.6 from 21.6 yesterday. Creatinine improving to 1.5 today Urine culture showed positive for E. coli, sensitive to all antibiotics 04/07 Patient does not have any new complaints. Denies headache, dizziness, nausea, or vomiting. Vital signs are stable. Oxygen saturation is good on room air White blood cells went down to 17.6 Her cellulitis is significantly improving, decrease the area of erythema in size. Bicarbonate is 16 -VBG showed pH 7.37, PCO2 33, PO2 41, Platelets dropped to 57. ROS: Positive for the symptoms mentioned above. All other systems were reviewed and are negative. Constitutional Vitals: Vital Signs Temp Pulse Resp BP Pulse Ox 98.7 F 89 13 119/94 98 04/07/20 16:01 04/06/20 07:00 04/07/20 18:01 04/07/20 18:01 04/07/20 18:01 Period Temp Pulse Resp BP Sys/Garcia Pulse Ox Last 24 Hr 96.7 F-98.7 F 05-09 94-132/54-99 96-100 Intake and Output 04/07/20 04/07/20 04/07/20 05:59 13:59 21:59 Intake Total 280 870 Output Total 275 150 Balance 5 870 -150 Weight 97.205 kg Intake & Output: Intake & Output 04/07/20 04/07/20 04/07/20 05:59 13:59 21:59 Intake Total 280 870 Output Total 275 150 Balance 5 870 -150 Weight 97.205 kg Intake: IV 250 50 Sodium Chloride 0.9% 250 ml @ 250 125 mls/hr IV ONCE ONE Rx#: [id number] Rocephin 2 gm In Dextrose 5% in 50 Water 50 ml @ 100 mls/hr IV Q24H [facility] Rx#:[id number] Oral 30 820 Output: Void Amount 125 150 Urine/Stool Mix 150 Other: Meal Lunch Percent of Meal Consumed 75% Urine Appearance Clear Clear Urine Color Pale Pale Dark Yellow Stool Size Small Moderate Small Stool Color Brown Brown Green Stool Consistency Formed Soft # Bowel Movements 1 1 Additional findings Additional findings: General - No acute distress Eyes - PERRLA, EOM intact ENT no rhinorrhea, no noticeable or palpable swelling, no redness or rash around throat or on face Neck supple, no JVD, no thyromegaly Respiratory: Lungs - couerse BS, no use of accessary muscles. Cardiovascular - RRR no m/r/g, GI - Normal bowel sounds, no distended, soft. Extremeties - Pitting edema +++ in both legs , left lower extremity erythema/induration (significantly decreased in size), no joint swelling Hemo/lymphatic/immune no lymphadenopathy Neurological Alert and oriented x 3, no focal neurological deficits. Psychiatry flat affect OBJ DATA Labs CBC & Chem 7: 04/07/20 05:43 04/07/20 05:43 Labs: Abnormal Lab Results 04/07/20 04/07/20 04/07/20 09:00 05:43 05:43 WBC 14.6 H RBC RDW 19.8 H Plt Count 57 L MPV Seg Neutrophils % 81 H Band Neutrophils % Lymphocytes % 9 L Metamyelocytes % RBC Morphology Abnorm A Polychromasia 1+ A Hypochromasia Anisocytosis 1+ A Carbon Dioxide 16 L Anion Gap 17.0 H BUN 55 H Creatinine 1.6 H Glucose Uric Acid 13.1 H Calcium Total Bilirubin 3.0 H Direct Bilirubin 2.1 H GGT 80 H AST ALT 49 H Alkaline Phosphatase 226 H Lactate Dehydrogenase 385 H Total Protein Albumin 3.0 L Vancomycin Trough 23.5 H* 04/06/20 04/06/20 04/05/20 05:10 05:10 05:10 WBC 17.6 H RBC RDW 19.3 H Plt Count 72 L MPV 11.2 H Seg Neutrophils % Band Neutrophils % 13 H Lymphocytes % 3 L Metamyelocytes % 2 H RBC Morphology Abnorm A Polychromasia Few A Hypochromasia Anisocytosis Carbon Dioxide 20 L 18 L Anion Gap 18.0 H BUN 57 H 59 H Creatinine 1.5 H 1.8 H Glucose 159 H 141 H Uric Acid 13.7 H 14.7 H Calcium 8.0 L Total Bilirubin 3.4 H 4.5 H Direct Bilirubin 2.6 H 2.8 H GGT 56 H 65 H AST 49 H ALT 44 H 57 H Alkaline Phosphatase 189 H 174 H Lactate Dehydrogenase 361 H 509 H Total Protein 5.0 L 5.5 L Albumin 2.6 L 2.9 L Vancomycin Trough 04/05/20 05:10 WBC 21.6 H RBC 5.42 H RDW 20.0 H Plt Count 94 L MPV 11.3 H Seg Neutrophils % Band Neutrophils % 18 H Lymphocytes % 9 L Metamyelocytes % 1 H RBC Morphology Abnorm A Polychromasia 1+ A Hypochromasia 1+ A Anisocytosis 1+ A Carbon Dioxide Anion Gap BUN Creatinine Glucose Uric Acid Calcium Total Bilirubin Direct Bilirubin GGT AST ALT Alkaline Phosphatase Lactate Dehydrogenase Total Protein Albumin Vancomycin Trough Meds: Medications Hydrocodone Bitart/Acetaminophen ([place] 5/325mg) 1 tab PO Q6HP PRN; Protocol PRN Reason: Per Pain Protocol Albuterol/Ipratropium (Duoneb) 3 ml NEB Q4HP PRN PRN Reason: Shortness Of Breath Apixaban (Eliquis) 2.5 mg PO BID JAMIE Aspirin (Aspirin) 81 mg PO DAILY JAMIE Bisacodyl (Dulcolax) 10 mg NC Q2-3DAYS PRN PRN Reason: Constipation Dextrose (Dextrose 50%) 0 ml IV UD PRN PRN Reason: Hypoglycemia Diagnostic Test (Pha) (Accu-Chek) 1 each FS ACHS [facility] Last Admin: 04/07/20 18:03 Dose: Not Given Documented by: Docusate Sodium (Colace) 100 mg PO BID JAMIE Glucose (Insta-Glucose) 15 gm PO PRN PRN PRN Reason: Hypoglycemia Guaifenesin (Robitussin Dm) 10 ml PO Q4HP PRN PRN Reason: Cough Acetaminophen (Ofirmev) 650 mg in 65 mls @ 130 mls/hr IV Q6HP PRN; Protocol PRN Reason: Per Pain Protocol/Fever > 101 Ceftriaxone Sodium 2 gm/ (Dextrose) 50 mls @ 100 mls/hr IV DAILY [facility]; Protocol Magnesium Sulfate (Magnesium Sulfate) 2 gm in 50 mls @ 50 mls/hr IV UD PRN PRN Reason: MG = or < 1.7 Potassium Chloride 40 meq/ (Dextrose) 520 mls @ 130 mls/hr IV UD PRN PRN Reason: K+ = or < 3.5 Insulin Human Lispro (Humalog) 0 unit SQ ACHS [facility]; Protocol Last Admin: 04/07/20 18:04 Dose: Not Given Documented by: Iron Carb/Multivit/Gaines/Folic Acid (Multivitamin W/Minerals) 1 tab PO DAILY [facility] Levothyroxine Sodium (Synthroid) 88 mcg PO QAMAC JAMIE Melatonin (Melatonin 3mg Tablet) 3 mg PO HSP PRN PRN Reason: Insomnia Ondansetron HCl (Zofran Odt) 4 mg SL Q6HP PRN; Protocol PRN Reason: Nausea And Vomiting Ondansetron HCl (Zofran) 4 mg IV Q6HP PRN; Protocol PRN Reason: Nausea And Vomiting Sodium Chloride (Saline Flush) 10 ml IV Q8 [facility] Vancomycin HCl (Vancomycin Per Pharmacy) 1 order IV UD [facility]; Protocol A/P Narrative A/P Narrative: 1. Septic shock with multiple organ dysfunction - off levaphed. Blood culture negative. Continue Rocephin/vancomycin. 2. Left lower extremity cellulitis. Significantly decreased in size. Ultrasound lower extremity negative for DVT, await cultures. Continue v ancomycin and Rocephin, limb elevation 3. UTI-on antibiotic coverage. Urine culture positive for E. coli which is sensitive to all antibiotics. 4. Chronic CHF with EF 40%/severe MR TR. beta-blockers on hold until shock resolved 5. Lower extreme lymphedema continue limb elevation. Wound care consult 6. Acute on chronic kidney injury. Creatinine down to 1.6 from 2.1. Baseline creatinine 1. Likely sepsis endorgan dysfunction. Repeat the renal function in morning 7. History of cirrhosis secondary congestive hepatopathy. Bilirubinemia. Continue monitoring. US abod on 03/25/20 - Markedly hyperechoic liver compatible with fatty change or other diffuse hepatocellular process. Common bile duct is normal 8. History of COPD continue bronchodilators 9. DM type II continue basal prandial insulin/CC diet 10. Weakness and deconditioning continue PT OT 11. Hypothyroidism contraction 12. Morbid obesity -follow with the PCP 13. Thrombocytopenia -etiology unknown. Ultrasound abdomen in March 2020 did not show splenomegaly. Cannot exclude HIT. Discontinued heparin and started Eliquis 2.5 mg twice daily (patient has rectal bleeding possibly from hemorrhoids so I did not give her 5 mg twice daily). Repeat her platelets in morning. Full code Prophylaxis Eliquis Plan off vasopressors, monitor vital signs Antibiotic coverage Limb elevation Pre-existing medical condition management home meds except for antihypertensives Time Spent With Patient Time: Total time spent is greater than 50% in coordination of care (as documented) at patient's floor/unit and/or counseling patient: QUALITY VTE Deep Vein Thrombosis/Pulmonary Embolism Present on Admission: No
[2020-04-07] MEDS ORDERED: APIXABAN 5 MG TABLET PO SCH (21:00)
[2020-04-07] MEDS ORDERED: FUROSEMIDE 20 MG/2 ML VIAL IV ONE (21:05)
[2020-04-07] MEDS: APIXABAN 5 MG TABLET PO SCH (21:18)
[2020-04-08] MEDS: 0.9 % SODIUM CHLORIDE 10 ML SYRINGE IV SCH ×2 (04:30→13:04)
[2020-04-08 06:36] LABS: Hematocrit 41.7 % (34.1-44.9); Hemoglobin 13.4 g/dL (11.2-15.7); Mean Cell Volume 79.4 fL (80.0-100.0); Mean Corpuscular HGB Conc 32.1 g/dL (31.0-36.0); Mean Platelet Volume 12.7 fL (7.4-10.4); Platelet Count 53 K/mcL (140-440); RBC 5.25 M/mcL (3.59-5.38); Red Cell Distribution Width 19.7 % (11.5-14.5); WBC 9.1 K/mcL (4.50-11.00)
[2020-04-08 07:17] LABS: ALT/SGPT 58 U/l (0-40); AST/SGOT 58 U/l (0-37); Albumin 2.9 gm/dL (3.2-5.2); Alkaline Phosphatase 211 U/L (39-117); Bilirubin,Direct 2.1 mg/dL (0.0-0.3); Bilirubin,Total 2.9 mg/dL (0.0-1.0); Blood Urea Nitrogen 62 mg/dl (8-23); Calcium 9.2 mg/dl (8.6-10.4); Carbon Dioxide 16 mmol/L (22-30); Chloride 99 mmol/L (96-108); Globulin 2.8 gm/dL (2.2-3.7); Glomerular Filtration Rate 29; Glucose 74 mg/dL (70-105); Lactate Dehydrogenase 331 U/L (94-250); Triglycerides 69 mg/dl (<150); Uric Acid 14.1 mg/dL (2.5-8.0)
[2020-04-08 07:18] LABS: Phosphorous 4.7 mg/dL (2.7-4.5)
[2020-04-08] MEDS ORDERED: LEVOTHYROXINE 88 MCG TABLET PO SCH (07:30)
[2020-04-08] MEDS: INSULIN LISPRO 1 UNIT/0.01 ML UNIT SQ SCH ×3 (07:52→17:25)
--- NOTE | 2020-04-08 07:57 | XRay Report ---
CLINICAL INFORMATION: History of CHF COMPARISON: 04/06/2020 FINDINGS: Marked cardiomegaly is unchanged. Mediastinum and pulmonary vessels are normal. The lungs are clear. No effusions. IMPRESSION: Cardiomegaly - stable Interpreted and Authenticated by: Adeel Rico 04/08/20
[2020-04-08] MEDS: DOCUSATE SODIUM 100 MG CAPSULE PO SCH (08:17)
[2020-04-08] MEDS: APIXABAN 5 MG TABLET PO SCH (08:22)
[2020-04-08 08:25] LABS: Lymphocytes % 17 % (15-49); Monocytes % (Manual) 8 % (1-12); Platelet Estimate DECREASED (NORMAL); RBC Morphology NORMAL (NORMAL); Segmented Neutrophils % 75 % (38-78)
[2020-04-08] MEDS ORDERED: ASPIRIN 81 MG TAB.CHEW PO SCH (09:00)
[2020-04-08] MEDS ORDERED: cefTRIAXone 2 GM in DEXTROSE 5% IN WATER 50 ML IV SCH ×2 (09:00)
[2020-04-08] MEDS ORDERED: MULTIVIT,THER IRON,CA,FA & MIN 1 TABLET PO SCH (09:00)
[2020-04-08] MEDS ORDERED: IPRATROPIUM/ALBUTEROL 3 ML AMPUL.NEB NEB PRN (09:41)
[2020-04-08] MEDS ORDERED: DEXTROSE 31 GM ORAL.SUSP PO PRN (09:41)
[2020-04-08] MEDS ORDERED: VANCOMYCIN PER PHARMACY IV SCH (09:41)
[2020-04-08] MEDS ORDERED: ACETAMINOPHEN 650 MG/65 ML BOTTLE IV PRN (09:41)
[2020-04-08] MEDS ORDERED: DEXTROSE 50% 50 ML VIAL IV PRN (09:41)
[2020-04-08] MEDS ORDERED: POTASSIUM CHLORIDE 40 MEQ in DEXTROSE 5% IN WATER 500 ML IV PRN (09:41)
[2020-04-08] MEDS ORDERED: ONDANSETRON 4 MG/2 ML VIAL IV PRN (09:41)
[2020-04-08] MEDS ORDERED: BISACODYL 10 MG SUPP.RECT PR PRN (09:41)
[2020-04-08] MEDS ORDERED: guaiFENesin/DEXTROMETHORPHAN ORAL SOL PO PRN (09:41)
[2020-04-08] MEDS ORDERED: MAGNESIUM SULFATE 2 GM/50 ML BAG IV PRN (09:41)
[2020-04-08] MEDS ORDERED: ONDANSETRON 4 MG ODT TABLET SL PRN (09:41)
[2020-04-08] MEDS: FUROSEMIDE 20 MG/2 ML VIAL IV SCH (09:55)
[2020-04-08] MEDS ORDERED: PERMETHRIN CRM 5% TUBE 60GM TOPICAL SCH ×2 (10:00)
[2020-04-08] MEDS: VANCOMYCIN 1,000 MG in 0.9 % SODIUM CHLORIDE 250 ML IV SCH (10:39)
--- NOTE | 2020-04-08 13:16 | General Surgery Consult Note ---
HPI Data of Consult Consult date: 04/08/20 Requesting physician: Sharla Bustillo Primary Care Provider: FRANCISCA Jesus Family Provider: I saw this patient in consultation for LLE lymphedema, bruising and lymphorrhea, in ICU 120/D along with Deborah PEREZ. I reviewed EHR pertaining to her recurring problems and her recent hospitalization related to SEPSIS and shock with DIEGO on CKI. Her condition has improved with aggressive medical care and she is now off pressors. Consult Narrative cc:: CC: Osman Prado PFS PFSH All Active Problems Congestive heart failure (Acute) Bilateral edema of lower extremity (Acute) Cellulitis (Acute) Acute kidney injury (Acute) Sepsis (Acute) No pertinent past surgical history (Chronic) Acute renal failure syndrome (Chronic) Elevated LFTs (Acute) Cerumen impaction (Acute) Abdominal pain (Acute) Edema of abdominal wall (Acute) Right hand pain (Chronic) Scabies (Chronic) Lower respiratory infection (Chronic) URI (upper respiratory infection) (Chronic) Sprain of right ankle (Chronic) Mitral valve regurgitation (Chronic) Pharyngitis (Chronic) Bronchitis (Chronic) Plantar fasciitis of right foot (Chronic) Periostitis of ankle (Chronic) Bilateral foot pain (Chronic) Lateral epicondylitis of left elbow (Chronic) Pain in elbow (Chronic) Olecranon bursitis, right elbow (Chronic) Plantar fasciitis, left (Chronic) Candidiasis of skin (Chronic) Lichen planus (Chronic) Angular cheilitis (Chronic) Regular astigmatism (Chronic) Myopia (Chronic) Right foot pain (Chronic) Cirrhosis of liver (Chronic) Knee pain (Chronic) Heart failure (Chronic) Vitamin D deficiency (Chronic) Proteinuria (Chronic) Hemorrhoids without complication (Chronic) Hypertriglyceridemia (Chronic) Essential hypertension (Chronic) Depression (Chronic) Alcoholism (Chronic) Obese (Chronic) Chronic nasal congestion (Chronic) Cough (Chronic) Diabetes mellitus (Chronic) COPD (chronic obstructive pulmonary disease) (Chronic) Lung nodule seen on imaging study (Chronic) Chest pain (Chronic) Congestive heart failure (Chronic) Abdominal pain (Chronic) Acute bronchitis (Chronic) Diverticulitis (Chronic) Atypical chest pain (Chronic) Gastritis (Chronic) Urinary tract infection (Chronic) Constipation (Chronic) Viral syndrome (Chronic) Medical History Abdominal pain (Chronic) Acute bronchitis (Chronic) Acute renal failure syndrome (Chronic) Alcoholism (Chronic) Angular cheilitis (Chronic) Atypical chest pain (Chronic) Bilateral foot pain (Chronic) Bronchitis (Chronic) Candidiasis of skin (Chronic) Chest pain (Chronic) Chronic nasal congestion (Chronic) Cirrhosis of liver (Chronic) Congestive heart failure (Chronic) Constipation (Chronic) Cough (Chronic) Depression (Chronic) Diverticulitis (Chronic) Essential hypertension (Chronic) Gastritis (Chronic) Heart failure (Chronic) Hemorrhoids without complication (Chronic) Hypertriglyceridemia (Chronic) Knee pain (Chronic) Lateral epicondylitis of left elbow (Chronic) Lichen planus (Chronic) of lips Lower respiratory infection (Chronic) Mitral valve regurgitation (Chronic) Myopia (Chronic) Obese (Chronic) Olecranon bursitis, right elbow (Chronic) Pain in elbow (Chronic) Periostitis of ankle (Chronic) Pharyngitis (Chronic) Plantar fasciitis of right foot (Chronic) Plantar fasciitis, left (Chronic) Proteinuria (Chronic) Regular astigmatism (Chronic) Right foot pain (Chronic) Right hand pain (Chronic) Scabies (Chronic) Sprain of right ankle (Chronic) Type 2 diabetes mellitus (Acute) URI (upper respiratory infection) (Chronic) Urinary tract infection (Chronic) Viral syndrome (Chronic) Vitamin D deficiency (Chronic) Surgical History No pertinent past surgical history (Chronic) Family History Other No pertinent family history Social History household members: alone marital status: single occupational status: retired smoking status: Former smoker alcohol intake frequency: former alcohol drinker substance use type: does not use additional history: Past surgical history: Tonsillectomy appendectomy cholecystectomy Family history Unknown mother history father had heart failure Social history: Patient quit smoking several months ago and stopped drinking al cohol several months ago. Uses a cane and lives by herself MEDS/ALLERGIES Home Medications and Allergies Home Medications Medication Instructions Recorded Confirmed Type aspirin [Adult Low Dose Aspirin] 81 mg PO DAILY 04/25/16 04/04/20 History albuterol sulfate 90 mcg/actuation See Rx Instructions INHALATION 03/21/20 04/04/20 History aerosol inhaler .Q4-6H PRN g potassium chloride 10 mEq 10 meq PO DAILY 03/21/20 04/04/20 History capsule,extended release furosemide See Rx Instructions .ROUTE .COMPLEX 03/25/20 04/04/20 History levothyroxine 88 mcg PO QAMAC #30 tab 03/26/20 04/04/20 Rx metoprolol succinate 12.5 mg PO DAILY #30 tab 03/26/20 04/04/20 Rx ondansetron 4 - 8 mg PO BIDP PRN 03/26/20 04/04/20 History dextromethorphan-guaifenesin 10 ml PO Q4H PRN 04/05/20 04/05/20 History [Adult Tussin DM] polyethylene glycol 3350 [Miralax] 17 g PO BID 04/05/20 04/05/20 History sennosides [senna] 8.6 mg PO QDAY 04/05/20 04/05/20 History Allergies Allergy/AdvReac Type Severity Reaction Status Date / Time shrimp Allergy Severe Anaphylaxis Verified 04/04/20 23:58 azithromycin Allergy Intermediate Difficulty Verified 04/05/20 06:06 Breathing heparin AdvReac Intermediate Other Verified 04/08/20 09:16 hydromorphone [From Dilaudid] AdvReac Mild Vomiting Verified 03/25/20 09:32 Physical Examination Vital Signs Vital signs: Temp Pulse Resp BP Pulse Ox 98.0 F 89 16 119/81 97 04/08/20 12:00 04/06/20 07:00 04/08/20 12:00 04/08/20 12:00 04/08/20 12:00 General physical appearance General physical exam: no distress, no pain and obese Eyes Eye exam: PERRL and normal ocular movement ENT ENT exam: normal pinna, normal nares, normal mucosa and no congestion Head Head exam IM: Present atraumatic and normal inspection Neck Neck exam: no masses, trachea midline and no venous distension Cardiovascular Cardiovascular exam IM: Present tachycardia Respiratory Respiratory exam: normal respiratory effort, clear to auscultation and other (Decreased air entry at bases. NOT in any distress. ) Abdomen Abdomen: Present soft, non tender and bowel sounds Genitourinary Genitourinary (Female): Present normal external genitalia and other (Covarrubias cather with clear urine) Integumentary Integumentary: Present other (LYMPHEDEMA of BLE, LLE >> RLE. Bruising of LEFT medial thigh, popliteal region and calf with clear lymphorrhea and watery drainage. THIRD SPACING. Chronic CHF. ) Neurologic Neurologic: Present normal coordination and normal sensation Musculoskeletal Musculoskeletal: Present normal posture Psychiatric Psychiatric: Present oriented to time, oriented to person, oriented to place, speech is normal and memory intact Results Labs Result diagrams: 04/08/20 05:10 04/08/20 05:10 Labs: Abnormal lab results 04/08/20 04/08/20 Range/Units 05:10 05:10 MCV 79.4 L (80.0-100.0) fL MCH 25.5 L (26.0-34.0) pg RDW 19.7 H (11.5-14.5) % Plt Count 53 L (140-440) K/mcL MPV 12.7 H (7.4-10.4) fL Carbon Dioxide 16 L (22-30) mmol/L Anion Gap 18.0 H (8-16) BUN 62 H (8-23) mg/dl Creatinine 1.8 H (0.6-1.1) mg/dl Uric Acid 14.1 H (2.5-8.0) mg/dL Phosphorus 4.7 H (2.7-4.5) mg/dL Total Bilirubin 2.9 H (0.0-1.0) mg/dL Direct Bilirubin 2.1 H (0.0-0.3) mg/dL GGT 103 H (5-36) U/L AST 58 H (0-37) U/l ALT 58 H (0-40) U/l Alkaline Phosphatase 211 H (39-117) U/L Lactate Dehydrogenase 331 H (94-250) U/L Total Protein 5.7 L (5.9-8.4) gm/dL Albumin 2.9 L (3.2-5.2) gm/dL Diabetes panel 04/08/20 Range/Units 05:10 Sodium 133 (133-145) mmol/L Potassium 4.3 (3.3-5.1) mmol/L Chloride 99 (96-108) mmol/L Carbon Dioxide 16 L (22-30) mmol/L BUN 62 H (8-23) mg/dl Creatinine 1.8 H (0.6-1.1) mg/dl Glucose 74 (70-105) mg/dL Calcium 9.2 (8.6-10.4) mg/dl AST 58 H (0-37) U/l ALT 58 H (0-40) U/l Alkaline Phosphatase 211 H (39-117) U/L Total Protein 5.7 L (5.9-8.4) gm/dL Albumin 2.9 L (3.2-5.2) gm/dL Triglycerides 69 (<150) mg/dl Calcium panel 04/08/20 Range/Units 05:10 Calcium 9.2 (8.6-10.4) mg/dl Phosphorus 4.7 H (2.7-4.5) mg/dL Albumin 2.9 L (3.2-5.2) gm/dL Pituitary panel 04/08/20 Range/Units 05:10 Sodium 133 (133-145) mmol/L Potassium 4.3 (3.3-5.1) mmol/L Chloride 99 (96-108) mmol/L Carbon Dioxide 16 L (22-30) mmol/L BUN 62 H (8-23) mg/dl Creatinine 1.8 H (0.6-1.1) mg/dl Glucose 74 (70-105) mg/dL Calcium 9.2 (8.6-10.4) mg/dl Adrenal panel 04/08/20 Range/Units 05:10 Sodium 133 (133-145) mmol/L Potassium 4.3 (3.3-5.1) mmol/L Chloride 99 (96-108) mmol/L Carbon Dioxide 16 L (22-30) mmol/L BUN 62 H (8-23) mg/dl Creatinine 1.8 H (0.6-1.1) mg/dl Glucose 74 (70-105) mg/dL Calcium 9.2 (8.6-10.4) mg/dl Total Bilirubin 2.9 H (0.0-1.0) mg/dL AST 58 H (0-37) U/l ALT 58 H (0-40) U/l Alkaline Phosphatase 211 H (39-117) U/L Total Protein 5.7 L (5.9-8.4) gm/dL Albumin 2.9 L (3.2-5.2) gm/dL All other labs normal. A/P Narrative A/P Narrative: Assessment: Bilateral LE lymphedema, Ecchymoses, Lymphorrhea of LEFT thigh, popliteal region and medial calf. Coagulopathy with thrombocytopenia . NO evidence of purulence or cellulitis Multiple other comorbid medial problems is HTN, DM, COPD, CHRONIC CHF, MORBID OBESITY AND SMOKING ARE UNCHANGED, Plan: See orders from wound care point of view. Clean with VASHE, Exu fiber AG absorbent dressings. ( Light compression ) Will follow patient during her hospitalization. Time Spent With Patient Time: Total time spent is greater than 50% in coordination of care (as documented) at patient's floor/unit and/or counseling patient: Total time spent with greater than 50% in coordination of care (as documented) at patient's floor/unit and/or counseling patient:: 25 - 35 minutes
--- NOTE | 2020-04-08 17:21 | Internal Med Progress Note ---
SUBJECTIVE Subjective Patient information: Note initiated : 04/08/20 at 5:13 pm Service Date, if different from initiated Date: [] Patient: Cait Reyes 65 y/o F admitted on 04/04/20 for left leg swelling. Chief Complaint: [] Ms. Reyes is a 65 year old F with a history of NYHA class III systolic heart failure EF 40%/NV/MR/COPD/history of cardiac cirrhosis/CKD stage III/DM type II and chronic lymphedema presents to the ER with rapid onset of left leg swelling, pain, redness extending up to middle of the thigh overnight. Patient went to her son and return to her apartment last night and was in her baseline state of health, she woke up this morning with severe pain swelling redness chills and subjective fever. She has chronic lymphedema from underlying CHF and takes diuretics. She also has allergic dermatitis for which she is frequently scratches her lower extremities and has been doing so over the last couple of days. She denies history of MRSA or recurrent cellulitis. She denies recent trauma. Initial work-up in the ER was consistent with severe sepsis with hypotension/e ndorgan dysfunction including acute kidney injury with a creatinine of 2.1, blood pressure 60s. Patient was started on antibiotic coverage after cultures were drawn. Elevated lactic acid. Subsequently hospitalist service was consulted for admission At the time of my evaluation patient is alert and oriented. She is moderate distress from left lower extremity redness swelling and pain. She was able to endorse history as above. She denies cough, chest palpitation headache but endorses to weakness, myalgia, chills but no diaphoresis. Shortly following admission to ICU patient systolics down to 70s and worsening clinical status. Patient started on Levophed. Diuretics discontinued. On a ntibiotic coverage. 04/05-patient overnight on Levophed. Clinical improvement noted with more lucid alert map at goal. White count 21.6 from 8000. 18% bands. Worsening left lower extremity redness extending up to the groin. However induration and lymphedema improved. Cultures negative so far. Creatinine down to 1.8, bilirubin 4.5 up from 3.7, underlying cardiac cirrhosis. Urine culture gram- negative bacillus. On Rocephin/vancomycin. Blood cultures pending so far. Patient remains critically ill. Continue ICU care 04/06 Patient complains of pain from Covarrubias catheter. Otherwise the patient feels better. Her blood pressure is improving. This morning Levophed was off. Oxygen saturation is fine on room air WBC went down to 17.6 from 21.6 yesterday. Creatinine improving to 1.5 today Urine culture showed positive for E. coli, sensitive to all antibiotics 04/07 Patient does not have any new complaints. Denies headache, dizziness, nausea, or vomiting. Vital signs are stable. Oxygen saturation is good on room air White blood cells went down to 17.6 Her cellulitis is significantly improving, decrease the area of erythema in size. Bicarbonate is 16 -VBG showed pH 7.37, PCO2 33, PO2 41, Platelets dropped to 57. 04/08 Patient feels fine today and does not have any complaints. Her systolic blood pressure close to 120 Saturation is good on room air WBC normalized today, 9. Creatinine 1.8 But platelets dropped to 53 from 57 yesterday. Repeat her platelets. If continue to drop, I will change antibiotics. ROS: Positive for the symptoms mentioned above. All other systems were reviewed and are negative. Constitutional Vitals: Vital Signs Temp Pulse Resp BP Pulse Ox 98.0 F 89 16 119/81 97 04/08/20 12:00 04/06/20 07:00 04/08/20 12:00 04/08/20 12:00 04/08/20 12:00 Period Temp Pulse Resp BP Sys/Garcia Pulse Ox Last 24 Hr 97.2 F-98.2 F 04-09 102-125/77-105 96-100 Intake and Output 04/08/20 04/08/20 04/08/20 05:59 13:59 21:59 Intake Total 120 780 200 Output Total 177 101 20 Balance -57 679 180 Intake & Output: Intake & Output 04/08/20 04/08/20 04/08/20 05:59 13:59 21:59 Intake Total 120 780 200 Output Total 177 101 20 Balance -57 679 180 Intake: IV 300 Vancomycin 1,000 mg In Sodium 250 Chloride 0.9% 250 ml @ 250 mls/ hr IV DAILY JAMIE Rx#:[id number] Rocephin 2 gm In Dextrose 5% in 50 Water 50 ml @ 100 mls/hr IV DAILY JAMIE Rx#:[id number] Oral 120 480 200 Output: Void Amount 175 100 20 # of times incontinent of urine 2 1 Other: Meal Lunch Percent of Meal Consumed 50% Feeding Ability Independent Urine Appearance Clear Clear Urine Color Bright Yellow Dark Yellow Dark Zulema Urine Odor Normal Strong Stool Size Small Small Small Stool Color Yellow Brown Brown Stool Consistency Soft Soft Soft Formed # Voids 1 # Bowel Movements 1 1 Additional findings Additional findings: General - No acute distress Eyes - PERRLA, EOM intact ENT no rhinorrhea, no noticeable or palpable swelling, no redness or rash around throat or on face Neck supple, no JVD, no thyromegaly Respiratory: Lungs - couerse BS, no use of accessary muscles. Cardiovascular - RRR no m/r/g, GI - Normal bowel sounds, no distended, soft. Extremeties - Pitting edema +++ in both legs , left lower extremity eryt preston/induration (significantly decreased in size), no joint swelling Hemo/lymphatic/immune no lymphadenopathy Neurological Alert and oriented x 3, no focal neurological deficits. Psychiatry flat affect OBJ DATA Labs CBC & Chem 7: 04/08/20 05:10 04/08/20 05:10 Labs: Abnormal Lab Results 04/08/20 04/08/20 04/07/20 05:10 05:10 09:00 WBC MCV 79.4 L MCH 25.5 L RDW 19.7 H Plt Count 53 L MPV 12.7 H Seg Neutrophils % Band Neutrophils % Lymphocytes % Metamyelocytes % RBC Morphology Polychromasia Anisocytosis Carbon Dioxide 16 L Anion Gap 18.0 H BUN 62 H Creatinine 1.8 H Glucose Uric Acid 14.1 H Calcium Phosphorus 4.7 H Total Bilirubin 2.9 H Direct Bilirubin 2.1 H GGT 103 H AST 58 H ALT 58 H Alkaline Phosphatase 211 H Lactate Dehydrogenase 331 H Total Protein 5.7 L Albumin 2.9 L Vancomycin Trough 23.5 H* 04/07/20 04/07/20 04/06/20 05:43 05:43 05:10 WBC 14.6 H MCV MCH RDW 19.8 H Plt Count 57 L MPV Seg Neutrophils % 81 H Band Neutrophils % Lymphocytes % 9 L Metamyelocytes % RBC Morphology Abnorm A Polychromasia 1+ A Anisocytosis 1+ A Carbon Dioxide 16 L 20 L Anion Gap 17.0 H BUN 55 H 57 H Creatinine 1.6 H 1.5 H Glucose 159 H Uric Acid 13.1 H 13.7 H Calcium 8.0 L Phosphorus Total Bilirubin 3.0 H 3.4 H Direct Bilirubin 2.1 H 2.6 H GGT 80 H 56 H AST ALT 49 H 44 H Alkaline Phosphatase 226 H 189 H Lactate Dehydrogenase 385 H 361 H Total Protein 5.0 L Albumin 3.0 L 2.6 L Vancomycin Trough 04/06/20 05:10 WBC 17.6 H MCV MCH RDW 19.3 H Plt Count 72 L MPV 11.2 H Seg Neutrophils % Band Neutrophils % 13 H Lymphocytes % 3 L Metamyelocytes % 2 H RBC Morphology Abnorm A Polychromasia Few A Anisocytosis Carbon Dioxide Anion Gap BUN Creatinine Glucose Uric Acid Calcium Phosphorus Total Bilirubin Direct Bilirubin GGT AST ALT Alkaline Phosphatase Lactate Dehydrogenase Total Protein Albumin Vancomycin Trough Meds: Medications Hydrocodone Bitart/Acetaminophen ([place] 5/325mg) 1 tab PO Q6HP PRN; Protocol PRN Reason: Per Pain Protocol Albuterol/Ipratropium (Duoneb) 3 ml NEB Q4HP PRN PRN Reason: Shortness Of Breath Apixaban (Eliquis) 2.5 mg PO BID [facility] Aspirin (Aspirin) 81 mg PO DAILY JAMIE Bisacodyl (Dulcolax) 10 mg NV Q2-3DAYS PRN PRN Reason: Constipation Dextrose (Dextrose 50%) 0 ml IV UD PRN PRN Reason: Hypoglycemia Diagnostic Test (Pha) (Accu-Chek) 1 each FS ACHS [facility] Last Admin: 04/08/20 11:43 Dose: 1 each Documented by: Docusate Sodium (Colace) 100 mg PO BID JAMIE Furosemide (Lasix) 20 mg IV DAILY [facility] Last Admin: 04/08/20 09:55 Dose: 20 mg Documented by: Glucose (Insta-Glucose) 15 gm PO PRN PRN PRN Reason: Hypoglycemia Guaifenesin (Robitussin Dm) 10 ml PO Q4HP PRN PRN Reason: Cough Acetaminophen (Ofirmev) 650 mg in 65 mls @ 130 mls/hr IV Q6HP PRN; Protocol PRN Reason: Per Pain Protocol/Fever > 101 Ceftriaxone Sodium 2 gm/ (Dextrose) 50 mls @ 100 mls/hr IV DAILY JAMIE; Protocol Magnesium Sulfate (Magnesium Sulfate) 2 gm in 50 mls @ 50 mls/hr IV UD PRN PRN Reason: MG = or < 1.7 Potassium Chloride 40 meq/ (Dextrose) 520 mls @ 130 mls/hr IV UD PRN PRN Reason: K+ = or < 3.5 Vancomycin HCl 1,000 mg/ (Sodium Chloride) 250 mls @ 250 mls/hr IV DAILY [facility] Last Infusion: 04/08/20 11:45 Dose: Infused Documented by: Insulin Human Lispro (Humalog) 0 unit SQ ACHS JAMIE; Protocol Last Admin: 04/08/20 11:43 Dose: Not Given Documented by: Iron Carb/Multivit/Trench Digger Helper/Folic Acid (Multivitamin W/Minerals) 1 tab PO DAILY [facility] Levothyroxine Sodium (Synthroid) 88 mcg PO QAMAC [facility] Melatonin (Melatonin 3mg Tablet) 3 mg PO HSP PRN PRN Reason: Insomnia Ondansetron HCl (Zofran Odt) 4 mg SL Q6HP PRN; Protocol PRN Reason: Nausea And Vomiting Ondansetron HCl (Zofran) 4 mg IV Q6HP PRN; Protocol PRN Reason: Nausea And Vomiting Sodium Chloride (Saline Flush) 10 ml IV Q8 [facility] Last Admin: 04/08/20 13:04 Dose: Not Given Documented by: Vancomycin HCl (Vancomycin Per Pharmacy) 1 order IV UD [facility]; Protocol A/P Narrative A/P Narrative: 1. Septic shock with multiple organ dysfunction - off levaphed. Blood culture negative. Continue Rocephin/vancomycin. 2. Left lower extremity cellulitis. Significantly decreased in size. Ultrasound lower extremity negative for DVT, await cultures. Continue vancomycin and Rocephin, limb elevation 3. UTI-on antibiotic coverage. Urine culture positive for E. coli which is sensitive to all antibiotics. 4. Chronic CHF with EF 40%/severe MR TR. beta-blockers on hold until shock resolved. lasix 20mg iv daily if BP allows. 5. Lower extreme lymphedema continue limb elevation. Wound care consult 6. Acute on chronic kidney injury. Creatinine down to 1.8 from 2.1. Baseline creatinine 1. Likely sepsis endorgan dysfunction. Repeat the renal function in morning 7. History of cirrhosis secondary congestive hepatopathy. Bilirubinemia. Mariaa nue monitoring. US abod on 03/25/20 - Markedly hyperechoic liver compatible with fatty change or other diffuse hepatocellular process. Common bile duct is normal 8. History of COPD continue bronchodilators 9. DM type II continue basal prandial insulin/CC diet 10. Weakness and deconditioning continue PT OT 11. Hypothyroidism contraction 12. Morbid obesity -follow with the PCP 13. Thrombocytopenia -etiology unknown. Ultrasound abdomen in March 2020 did not show splenomegaly. Cannot exclude HIT. Discontinued heparin and started Eliquis 2.5 mg twice daily (patient has rectal bleeding possibly from hemorrhoids so I did not give her 5 mg twice daily). Repeat her platelets in morning. 14. Scabies infection - permethrin topical 15. DVT prophylaxis: Eliquis 16. CODE STATUS: full Plan off vasopressors, monitor vital signs Antibiotic coverage Limb elevation Pre-existing medical condition management home meds except for antihypertensives Time Spent With Patient Time: Total time spent is greater than 50% in coordination of care (as documented) at patient's floor/unit and/or counseling patient: QUALITY VTE Deep Vein Thrombosis/Pulmonary Embolism Present on Admission: No
[2020-04-09] MEDS: INSULIN LISPRO 1 UNIT/0.01 ML UNIT SQ SCH ×4 (00:29→20:32)
[2020-04-09] MEDS: DOCUSATE SODIUM 100 MG CAPSULE PO SCH ×3 (00:29→20:49)
[2020-04-09] MEDS: APIXABAN 5 MG TABLET PO SCH ×3 (00:30→20:19)
[2020-04-09] MEDS: MELATONIN 3 MG TABLET PO PRN ×2 (00:31→20:19)
[2020-04-09] MEDS: 0.9 % SODIUM CHLORIDE 10 ML SYRINGE IV SCH ×4 (00:31→20:19)
[2020-04-09 07:31] LABS: Hematocrit 42.7 % (34.1-44.9); Hemoglobin 14.2 g/dL (11.2-15.7); Mean Cell Volume 78.3 fL (80.0-100.0); Mean Corpuscular HGB Conc 33.3 g/dL (31.0-36.0); Platelet Count 72 K/mcL (140-440); RBC 5.45 M/mcL (3.59-5.38); Red Cell Distribution Width 19.6 % (11.5-14.5); WBC 6.6 K/mcL (4.50-11.00)
[2020-04-09] MEDS: LEVOTHYROXINE 88 MCG TABLET PO SCH (07:43)
[2020-04-09 07:55] LABS: Chloride 98 mmol/L (96-108)
[2020-04-09 07:58] LABS: ALT/SGPT 63 U/l (0-40); AST/SGOT 60 U/l (0-37); Alkaline Phosphatase 232 U/L (39-117); Bilirubin,Direct 2.3 mg/dL (0.0-0.3); Bilirubin,Total 3.2 mg/dL (0.0-1.0); Blood Urea Nitrogen 61 mg/dl (8-23); Calcium 9.4 mg/dl (8.6-10.4); Carbon Dioxide 16 mmol/L (22-30); Globulin 3.1 gm/dL (2.2-3.7); Glomerular Filtration Rate 31; Glucose 82 mg/dL (70-105); Lactate Dehydrogenase 393 U/L (94-250); Phosphorous 4.2 mg/dL (2.7-4.5); Triglycerides 97 mg/dl (<150); Uric Acid 13.6 mg/dL (2.5-8.0)
[2020-04-09 08:12] LABS: Anisocytosis 1+ (NONE SEEN); Eosinophils % (Manual) 1 % (0-7); Lymphocytes % 30 % (15-49); Monocytes % (Manual) 7 % (1-12); Nucleated Red Blood Cells 1 % (0-0); Platelet Estimate DECREASED (NORMAL); RBC Morphology ABNORM (NORMAL); Segmented Neutrophils % 62 % (38-78)
[2020-04-09] MEDS ORDERED: FUROSEMIDE 20 MG/2 ML VIAL IV SCH (09:00)
[2020-04-09] MEDS: cefTRIAXone 2 GM in DEXTROSE 5% IN WATER 50 ML IV SCH (10:45)
[2020-04-09] MEDS: ASPIRIN 81 MG TAB.CHEW PO SCH (10:45)
[2020-04-09] MEDS: FUROSEMIDE 20 MG/2 ML VIAL IV SCH (10:45)
[2020-04-09] MEDS: MULTIVIT,THER IRON,CA,FA & MIN 1 TABLET PO SCH ×2 (10:45→10:48)
[2020-04-09] MEDS: VANCOMYCIN 1,000 MG in 0.9 % SODIUM CHLORIDE 250 ML IV SCH (12:14)
--- NOTE | 2020-04-09 13:23 | General Surgery Progress Note ---
SUBJECTIVE Subjective Patient information: Note initiated : 04/09/20 at 1:17 pm Service Date, if different from initiated Date: [] Patient: Cait Reyes 65 y/o F admitted on 04/04/20 for left leg swelling. Chief Complaint: [] Additional PMFSH (Level 3 Only): Patient seen on rounds along with Varsha RN In Patient wound care nurse. She is feeling better. Lymphatic drainage from LLE is decreasing. Constitutional Vitals: Vital Signs Temp Pulse Resp BP Pulse Ox 97 F 100 H 22 114/77 97 04/09/20 07:48 04/09/20 07:48 04/09/20 07:48 04/09/20 07:48 04/09/20 07:48 Period Temp Pulse Resp BP Sys/Garcia Pulse Ox Last 24 Hr 97 F-98.1 F 91-100 90-125/64-91 97-99 Intake and Output 04/08/20 04/09/20 04/09/20 21:59 05:59 13:59 Intake Total 200 150 Output Total 120 450 Balance 80 -300 Weight 214 lb 3.2 oz Intake & Output: Intake & Output 04/08/20 04/09/20 04/09/20 21:59 05:59 13:59 Intake Total 200 150 Output Total 120 450 Balance 80 -300 Weight 214 lb 3.2 oz Intake: Oral 200 150 Output: Void Amount 120 450 Other: Urine Appearance Clear Urine Color Dark Zulema Light Zulema Urine Odor Strong Stool Size Smear Small Stool Color Brown Brown Stool Consistency Soft Loose # Bowel Movements 1 1 Exam: AVSS . Incentive Spirometer 0ver 100o and up to 1200. Platelet 57 Creatinine 1.7 COB improving. L/E. LLE Improvement in edema with diuresis. Skin starting to wrinkle. Lymphatic Drainage is stabilizing A/P Narrative A/P Narrative: Assessment: Satisfactory progress from wound care point of view. Plan: Continue current treatment. Time Spent With Patient Time: Total time spent is greater than 50% in coordination of care (as documented) at patient's floor/unit and/or counseling patient: Total time spent with greater than 50% in coordination of care (as documented) at patient's floor/unit and/or counseling patient:: 15 - 24 minutes
[2020-04-09] MEDS: HYDROcodone/APAP 5/325MG TABLET PO PRN (20:19)
--- NOTE | 2020-04-10 00:01 | Internal Med Progress Note ---
SUBJECTIVE Subjective Patient information: Note initiated : 04/09/20 at 11:54 pm Service Date, if different from initiated Date: [] Patient: Cait Reyes a 65 y/o F admitted on 04/04/20 for left leg swelling. Chief Complaint: [] Ms. Reyes is a 65 year old F with a history of NYHA class III systolic heart failure EF 40%/OH/MR/COPD/history of cardiac cirrhosis/CKD stage III/DM type II and chronic lymphedema presents to the ER with rapid onset of left leg swelling, pain, redness extending up to middle of the thigh overnight. Patient went to her son and return to her apartment last night and was in her baseline state of health, she woke up this morning with severe pain swelling redness chills and subjective fever. She has chronic lymphedema from underlying CHF and takes diuretics. She also has allergic dermatitis for which she is frequently scratches her lower extremities and has been doing so over the last couple of days. She denies history of MRSA or recurrent cellulitis. She denies recent trauma. Initial work-up in the ER was consistent with severe sepsis with hypotension/ endorgan dysfunction including acute kidney injury with a creatinine of 2.1, blood pressure 60s. Patient was started on antibiotic coverage after cultures were drawn. Elevated lactic acid. Subsequently hospitalist service was consulted for admission At the time of my evaluation patient is alert and oriented. She is moderate distress from left lower extremity redness swelling and pain. She was able to endorse history as above. She denies cough, chest palpitation headache but endorses to weakness, myalgia, chills but no diaphoresis. Shortly following admission to ICU patient systolics down to 70s and worsening clinical status. Patient started on Levophed. Diuretics discontinued. On antibiotic coverage. 04/05-patient overnight on Levophed. Clinical improvement noted with more lucid alert map at goal. White count 21.6 from 8000. 18% bands. Worsening left lower extremity redness extending up to the groin. However induration and lymphedema improved. Cultures negative so far. Creatinine down to 1.8, bilirubin 4.5 up from 3.7, underlying cardiac cirrhosis. Urine culture gram- negative bacillus. On Rocephin/vancomycin. Blood cultures pending so far. Patient remains critically ill. Continue ICU care 04/06 Patient complains of pain from Covarrubias catheter. Otherwise the patient feels better. Her blood pressure is improving. This morning Levophed was off. Oxygen saturation is fine on room air WBC went down to 17.6 from 21.6 yesterday. Creatinine improving to 1.5 today Urine culture showed positive for E. coli, sensitive to all antibiotics 04/07 Patient does not have any new complaints. Denies headache, dizziness, nausea, or vomiting. Vital signs are stable. Oxygen saturation is good on room air White blood cells went down to 17.6 Her cellulitis is significantly improving, decrease the area of erythema in size. Bicarbonate is 16 -VBG showed pH 7.37, PCO2 33, PO2 41, Platelets dropped to 57. 04/08 Patient feels fine today and does not have any complaints. Her systolic blood pressure close to 120 Saturation is good on room air WBC normalized today, 9. Creatinine 1.8 But platelets dropped to 53 from 57 yesterday. Repeat her platelets. If continue to drop, I will change antibiotics. 04/09 I was reported that patient cried yesterday. Saw patient this morning and talked with patient. She told me that yesterday she thought she would . I explained her condition to her and she promised to me she will not think about that way. She denied suicidal ideation. Her cellulitis is improving. Continue current antibiotics Platelets went up to 72 from 53 yesterday. She is happy with the treatment. ROS: Positive for the symptoms mentioned above. All other systems were reviewed and are negative. Constitutional Vitals: Vital Signs Temp Pulse Resp BP Pulse Ox 97.2 F 105 H 20 105/69 98 04/09/20 19:57 04/09/20 19:57 04/09/20 19:57 04/09/20 19:57 04/09/20 19:57 Period Temp Pulse Resp BP Sys/Garcia Pulse Ox Last 24 Hr 97 F-97.6 F 96-107 - 90-114/64-82 96-98 Intake and Output 04/09/20 04/09/20 04/10/20 13:59 21:59 05:59 Intake Total 300 240 Output Total 300 Balance 0 240 Weight 97.704 kg Patient Weight 04/10/20 05:59 Weight 97.704 kg Intake & Output: Intake & Output 04/09/20 04/09/20 04/10/20 13:59 21:59 05:59 Intake Total 300 240 Output Total 300 Balance 0 240 Weight 97.704 kg Intake: Oral 300 240 Output: Void Amount 300 Other: Meal Lunch Dinner Percent of Meal Consumed 50% 25% Feeding Ability Assist with Tray Set Up Independent Urine Color Dark Yellow Urine Odor Normal Stool Size Small Small Stool Color Black Green Stool Consistency Watery Watery # Voids 1 # Bowel Movements 1 1 Additional findings Additional findings: General - No acute distress Eyes - PERRLA, EOM intact ENT no rhinorrhea, no noticeable or palpable swelling, no redness or rash around throat or on face Neck supple, no JVD, no thyromegaly Respiratory: Lungs - couerse BS, no use of accessary muscles. Cardiovascular - RRR no m/r/g, GI - Normal bowel sounds, no distended, soft. Extremeties - Pitting edema +++ in both legs , left lower extremity erythema/induration (significantly decreased in size), no joint swelling Hemo/lymphatic/immune no lymphadenopathy Neurological Alert and oriented x 3, no focal neurological deficits. Psychiatry flat affect OBJ DATA Labs CBC & Chem 7: 04/09/20 06:31 04/09/20 06:31 Labs: Abnormal Lab Results 04/09/20 04/09/20 04/09/20 09:52 06:31 06:31 WBC RBC 5.45 H MCV 78.3 L MCH RDW 19.6 H Plt Count 72 L MPV Seg Neutrophils % Lymphocytes % Nucleated RBCs 1 H RBC Morphology Abnorm A Polychromasia Anisocytosis 1+ A Sodium 132 L Carbon Dioxide 16 L Anion Gap 18.0 H BUN 61 H Creatinine 1.7 H Uric Acid 13.6 H Phosphorus Total Bilirubin 3.2 H Direct Bilirubin 2.3 H GGT 130 H AST 60 H ALT 63 H Alkaline Phosphatase 232 H Lactate Dehydrogenase 393 H Total Protein Albumin 3.0 L Vancomycin Trough 22.1 H* 04/08/20 04/08/20 04/07/20 05:10 05:10 09:00 WBC RBC MCV 79.4 L MCH 25.5 L RDW 19.7 H Plt Count 53 L MPV 12.7 H Seg Neutrophils % Lymphocytes % Nucleated RBCs RBC Morphology Polychromasia Anisocytosis Sodium Carbon Dioxide 16 L Anion Gap 18.0 H BUN 62 H Creatinine 1.8 H Uric Acid 14.1 H Phosphorus 4.7 H Total Bilirubin 2.9 H Direct Bilirubin 2.1 H GGT 103 H AST 58 H ALT 58 H Alkaline Phosphatase 211 H Lactate Dehydrogenase 331 H Total Protein 5.7 L Albumin 2.9 L Vancomycin Trough 23.5 H* 04/07/20 04/07/20 05:43 05:43 WBC 14.6 H RBC MCV MCH RDW 19.8 H Plt Count 57 L MPV Seg Neutrophils % 81 H Lymphocytes % 9 L Nucleated RBCs RBC Morphology Abnorm A Polychromasia 1+ A Anisocytosis 1+ A Sodium Carbon Dioxide 16 L Anion Gap 17.0 H BUN 55 H Creatinine 1.6 H Uric Acid 13.1 H Phosphorus Total Bilirubin 3.0 H Direct Bilirubin 2.1 H GGT 80 H AST ALT 49 H Alkaline Phosphatase 226 H Lactate Dehydrogenase 385 H Total Protein Albumin 3.0 L Vancomycin Trough Meds: Medications Hydrocodone Bitart/Acetaminophen ([place] 5/325mg) 1 tab PO Q6HP PRN; Protocol PRN Reason: Per Pain Protocol Last Admin: 04/09/20 20:19 Dose: 1 tab Documented by: Albuterol/Ipratropium (Duoneb) 3 ml NEB Q4HP PRN PRN Reason: Shortness Of Breath Apixaban (Eliquis) 2.5 mg PO BID [facility] Last Admin: 04/09/20 20:19 Dose: 2.5 mg Documented by: Aspirin (Aspirin) 81 mg PO DAILY [facility] Last Admin: 04/09/20 10:45 Dose: 81 mg Documented by: Bisacodyl (Dulcolax) 10 mg [place] Q2-3DAYS PRN PRN Reason: Constipation Dextrose (Dextrose 50%) 0 ml IV UD PRN PRN Reason: Hypoglycemia Diagnostic Test (Pha) (Accu-Chek) 1 each FS ACHS [facility] Last Admin: 04/09/20 20:22 Dose: 1 each Documented by: Docusate Sodium (Colace) 100 mg PO BID [facility] Last Admin: 04/09/20 20:49 Dose: Not Given Documented by: Furosemide (Lasix) 20 mg IV DAILY [facility] Last Admin: 04/09/20 10:45 Dose: 20 mg Documented by: Glucose (Insta-Glucose) 15 gm PO PRN PRN PRN Reason: Hypoglycemia Guaifenesin (Robitussin Dm) 10 ml PO Q4HP PRN PRN Reason: Cough Acetaminophen (Ofirmev) 650 mg in 65 mls @ 130 mls/hr IV Q6HP PRN; Protocol PRN Reason: Per Pain Protocol/Fever > 101 Ceftriaxone Sodium 2 gm/ (Dextrose) 50 mls @ 100 mls/hr IV DAILY [facility]; Protocol Last Admin: 04/09/20 10:45 Dose: 100 mls/hr Documented by: Magnesium Sulfate (Magnesium Sulfate) 2 gm in 50 mls @ 50 mls/hr IV UD PRN PRN Reason: MG = or < 1.7 Potassium Chloride 40 meq/ (Dextrose) 520 mls @ 130 mls/hr IV UD PRN PRN Reason: K+ = or < 3.5 Insulin Human Lispro (Humalog) 0 unit SQ ACHS [facility]; Protocol Last Admin: 04/09/20 20:32 Dose: 1 unit Documented by: Iron Carb/Multivit/[place]/Folic Acid (Multivitamin W/Minerals) 1 tab PO DAILY [facility] Last Admin: 04/09/20 10:48 Dose: Not Given Documented by: Levothyroxine Sodium (Synthroid) 88 mcg PO QAMAC [facility] Last Admin: 04/09/20 07:43 Dose: 88 mcg Documented by: Melatonin (Melatonin 3mg Tablet) 3 mg PO HSP PRN PRN Reason: Insomnia Last Admin: 04/09/20 20:19 Dose: 3 mg Documented by: Ondansetron HCl (Zofran Odt) 4 mg SL Q6HP PRN; Protocol PRN Reason: Nausea And Vomiting Ondansetron HCl (Zofran) 4 mg IV Q6HP PRN; Protocol PRN Reason: Nausea And Vomiting Sodium Chloride (Saline Flush) 10 ml IV Q8 [facility] Last Admin: 04/09/20 20:19 Dose: 10 ml Documented by: Vancomycin HCl (Vancomycin Per Pharmacy) 1 order IV UD [facility]; Protocol A/P Narrative A/P Narrative: 1. Septic shock with multiple organ dysfunction - off levaphed and downgraded to MedSurg yesterday. Blood culture negative. Continue Rocephin/vancomycin. 2. Left lower extremity cellulitis. Improving. Ultrasound lower extremity negative for DVT, await cultures. Continue vancomycin and Rocephin, limb elevation 3. UTI-on antibiotic coverage. Urine culture positive for E. coli which is sensitive to all antibiotics. 4. Chronic CHF with EF 40%/severe MR TR. beta-blockers on hold until shock resolved. lasix 20mg iv daily if BP allows. 5. Lower extreme lymphedema continue limb elevation. Wound care consult 6. Acute on chronic kidney injury. Creatinine 1.7. Baseline creatinine 1. Likely sepsis endorgan dysfunction. Repeat the renal function in morning 7. History of cirrhosis secondary congestive hepatopathy. Bilirubinemia. Continue monitoring. US abod on 03/25/20 - Markedly hyperechoic liver compatible with fatty change or other diffuse hepatocellular process. Common bile duct is normal 8. History of COPD continue bronchodilators 9. DM type II continue basal prandial insulin/CC diet 10. Weakness and deconditioning continue PT OT 11. Hypothyroidism contraction 12. Morbid obesity -follow with the PCP 13. Thrombocytopenia -etiology unknown. Ultrasound abdomen in March 2020 did not show splenomegaly. Cannot exclude HIT. Discontinued heparin and started Eliquis 2.5 mg twice daily (patient has rectal bleeding possibly from hemorrhoids so I did not give her 5 mg twice daily). Plt started to trend up. Repeat her platelets in morning. 14. Scabies infection - permethrin topical 15. DVT prophylaxis: Eliquis 16. CODE STATUS: full Plan monitor vital signs Antibiotic coverage Limb elevation Pre-existing medical condition management home meds except for antihypertensives Time Spent With Patient Time: Total time spent is greater than 50% in coordination of care (as documented) at patient's floor/unit and/or counseling patient: QUALITY VTE Deep Vein Thrombosis/Pulmonary Embolism Present on Admission: No
[2020-04-10] MEDS: HYDROcodone/APAP 5/325MG TABLET PO PRN ×2 (03:19→10:53)
[2020-04-10] MEDS: 0.9 % SODIUM CHLORIDE 10 ML SYRINGE IV SCH ×3 (03:20→15:10)
[2020-04-10 06:50] LABS: ALT/SGPT 57 U/l (0-40); AST/SGOT 48 U/l (0-37); Alkaline Phosphatase 254 U/L (39-117); Bilirubin,Direct 2.4 mg/dL (0.0-0.3); Bilirubin,Total 3.5 mg/dL (0.0-1.0); Blood Urea Nitrogen 55 mg/dl (8-23); Calcium 8.8 mg/dl (8.6-10.4); Chloride 96 mmol/L (96-108); Globulin 2.9 gm/dL (2.2-3.7); Glucose 134 mg/dL (70-105); Lactate Dehydrogenase 404 U/L (94-250); Phosphorous 3.2 mg/dL (2.7-4.5); Triglycerides 82 mg/dl (<150); Uric Acid 13.1 mg/dL (2.5-8.0)
[2020-04-10 06:54] LABS: Vancomycin,Random 14.7 ug/mL
[2020-04-10 06:54] LABS: Carbon Dioxide 20 mmol/L (22-30); Glomerular Filtration Rate 43
[2020-04-10] MEDS: INSULIN LISPRO 1 UNIT/0.01 ML UNIT SQ SCH ×4 (07:36→20:20)
[2020-04-10 07:41] LABS: Basophils # (Auto) 0.04 K/mcL (0.00-0.30); Basophils % (Auto) 0.5 % (0.0-2.0); Eosinophils # (Auto) 0.04 K/mcL (0.00-0.70); Eosinophils % (Auto) 0.5 % (0.0-7.0); Granulocytes % (Auto) 78.8 % (38.0-78.0); Hematocrit 44.9 % (34.1-44.9); Hemoglobin 14.4 g/dL (11.2-15.7); Lymphocytes # (Auto) 0.81 K/mcL (1.50-4.80); Lymphocytes % (Auto) 10.4 % (15.5-49.0); Mean Cell Volume 80.5 fL (80.0-100.0); Mean Corpuscular HGB Conc 32.1 g/dL (31.0-36.0); Mean Platelet Volume 11.2 fL (7.4-10.4); Monocytes # (Auto) 0.76 K/mcL (0.10-0.90); Monocytes % (Auto) 9.8 % (1.0-12.0); RBC 5.58 M/mcL (3.59-5.38); Red Cell Distribution Width 19.9 % (11.5-14.5); WBC 7.8 K/mcL (4.50-11.00)
[2020-04-10 07:43] LABS: Platelet Count 87 K/mcL (140-440)
[2020-04-10] MEDS: DOCUSATE SODIUM 100 MG CAPSULE PO SCH ×2 (07:46→20:16)
[2020-04-10] MEDS: LEVOTHYROXINE 88 MCG TABLET PO SCH (07:49)
[2020-04-10] MEDS ORDERED: cefTRIAXone 2 GM VIAL ONE (09:57)
[2020-04-10] MEDS: ASPIRIN 81 MG TAB.CHEW PO SCH (10:53)
[2020-04-10] MEDS: APIXABAN 5 MG TABLET PO SCH ×2 (10:54→20:16)
[2020-04-10] MEDS: MULTIVIT,THER IRON,CA,FA & MIN 1 TABLET PO SCH ×2 (10:55→11:02)
[2020-04-10] MEDS: FUROSEMIDE 20 MG/2 ML VIAL IV SCH (10:57)
[2020-04-10] MEDS: cefTRIAXone 2 GM in DEXTROSE 5% IN WATER 50 ML IV SCH (11:02)
[2020-04-10] MEDS ORDERED: VANCOMYCIN 1,000 MG in 0.9 % SODIUM CHLORIDE 250 ML IV SCH (12:00)
--- NOTE | 2020-04-10 19:00 | Internal Med Progress Note ---
SUBJECTIVE Subjective Patient information: Note initiated : 04/10/20 at 6:45 pm Service Date, if different from initiated Date: [] Patient: Cait Reyes 65 y/o F admitted on 04/04/20 for left leg swelling. Chief Complaint: [] Interval history: Ms. Reyes is a 65 year old F with a history of NYHA class III systolic heart failure EF 40%/[place]/MR/COPD/history of cardiac cirrhosis/CKD stage III/DM type II and chronic lymphedema presents to the ER with rapid onset of left leg swelling, pain, redness extending up to middle of the thigh overnight. Patient went to her son and return to her apartment last night and was in her baseline state of health, she woke up this morning with severe pain swelling redness chills and subjective fever. She has chronic lymphedema from underlying CHF and takes diuretics. She also has allergic dermatitis for which she is frequently scratches her lower extremities and has been doing so over the last couple of days. She denies history of MRSA or recurrent cellulitis. She denies recent trauma. Initial work-up in the ER was consistent with severe sepsis with hypotension/endorgan dysfunction including acute kidney injury with a creatinine of 2.1, blood pressure 60s. Patient was started on antibiotic coverage after cultures were drawn. Elevated lactic acid. Subsequently hospitalist service was consulted for admission At the time of my evaluation patient is alert and oriented. She is moderate distress from left lower extremity redness swelling and pain. She was able to endorse history as above. She denies cough, chest palpitation headache but endorses to weakness, myalgia, chills but no diaphoresis. Shortly following admission to ICU patient systolics down to 70s and worsening clinical status. Patient started on Levophed. Diuretics discontinued. On antibiotic coverage. 04/05-patient overnight on Levophed. Clinical improvement noted with more lucid alert map at goal. White count 21.6 from 8000. 18% bands. Worsening left lower extremity redness extending up to the groin. However induration and lymphedema improved. Cultures negative so far. Creatinine down to 1.8, bilirubin 4.5 up from 3.7, underlying cardiac cirrhosis. Urine culture gram- negative bacillus. On Rocephin/vancomycin. Blood cultures pending so far. Patient remains critically ill. Continue ICU care 04/06 Patient complains of pain from Covarrubias catheter. Otherwise the patient feels better. Her blood pressure is improving. This morning Levophed was off. Oxygen saturation is fine on room air WBC went down to 17.6 from 21.6 yesterday. Creatinine improving to 1.5 today Urine culture showed positive for E. coli, sensitive to all antibiotics 04/07 Patient does not have any new complaints. Denies headache, dizziness, nausea, or vomiting. Vital signs are stable. Oxygen saturation is good on room air White blood cells went down to 17.6 Her cellulitis is significantly improving, decrease the area of erythema in size. Bicarbonate is 16 -VBG showed pH 7.37, PCO2 33, PO2 41, Platelets dropped to 57. 04/08 Patient feels fine today and does not have any complaints. Her systolic blood pressure close to 120 Saturation is good on room air WBC normalized today, 9. Creatinine 1.8 But platelets dropped to 53 from 57 yesterday. Repeat her platelets. If continue to drop, I will change antibiotics. 04/09 I was reported that patient cried yesterday. Saw patient this morning and talked with patient. She told me that yesterday she thought she would . I explained her condition to her and she promised to me she will not think about that way. She denied suicidal ideation. Her cellulitis is improving. Continue current antibiotics Platelets went up to 72 from 53 yesterday. She is happy with the treatment. 04/10 Today pt feels fine. When I saw her this morning son was in her room. I updated her condition to her. She is happy with the treatment regimen. Cellulitis continue to improve Plt elevated to 87 today. PT/OT for discharge plan 04/11 Constitutional Vitals: Vital Signs Temp Pulse Resp BP Pulse Ox 98.3 F 116 H 20 124/91 99 04/10/20 16:00 04/10/20 16:00 04/10/20 16:00 04/10/20 16:00 04/10/20 16:00 Period Temp Pulse Resp BP Sys/Garcia Pulse Ox Last 24 Hr 97.2 F-98.4 F 94-116 98-124/64-91 96-99 Intake and Output 04/10/20 04/10/20 04/10/20 05:59 13:59 21:59 Intake Total 240 840 250 Output Total 455 200 Balance 240 385 50 Weight 97.704 kg Patient Weight 04/11/20 05:59 Weight 97.704 kg Intake & Output: Intake & Output 04/10/20 04/10/20 04/10/20 05:59 13:59 21:59 Intake Total 240 840 250 Output Total 455 200 Balance 240 385 50 Weight 97.704 kg Intake: IV 300 Vancomycin 1,000 mg In Sodium 250 Chloride 0.9% 250 ml @ 250 mls/ hr IV Q24H [facility] Rx#:[id number] Rocephin 2 gm In Dextrose 5% in 50 Water 50 ml @ 100 mls/hr IV DAILY [facility] Rx#:[id number] Oral 240 540 250 Output: Void Amount 455 200 Other: Meal Breakfast Lunch Percent of Meal Consumed 100% 50% Feeding Ability Assist with Tray Set Up Assist with Tray Set Up Urine Appearance Clear Urine Color Bright Yellow Dark Yellow Urine Odor Normal Strong # Voids 1 Exam: General: Alert, Awake, No acute Distress Eyes/N/T: EOMI, Head/Neck: neck supple, CV: RRR, No murmurs, Pulm: course b/l, no wheezing Abd: soft, nontender, +BS x4 Ext: no clubbing/cyanosis, b/l LE edema 3+, LLE erythema/induration improving Neuro: Alert, no focal deficits, moves all extremities, Skin: warm/dry OBJ DATA Labs CBC & Chem 7: 04/10/20 05:51 04/10/20 05:50 Labs: Abnormal Lab Results 04/10/20 04/10/20 04/09/20 05:51 05:50 09:52 RBC 5.58 H MCV MCH 25.8 L RDW 19.9 H Plt Count 87 L MPV 11.2 H Gran % 78.8 H Lymph % (Auto) 10.4 L Lymph # (Auto) 0.81 L Nucleated RBCs RBC Morphology Anisocytosis Sodium 132 L Carbon Dioxide 20 L Anion Gap BUN 55 H Creatinine 1.3 H Glucose 134 H Uric Acid 13.1 H Phosphorus Total Bilirubin 3.5 H Direct Bilirubin 2.4 H GGT 132 H AST 48 H ALT 57 H Alkaline Phosphatase 254 H Lactate Dehydrogenase 404 H Total Protein Albumin 3.0 L Vancomycin Trough 22.1 H* 04/09/20 04/09/20 04/08/20 06:31 06:31 05:10 RBC 5.45 H MCV 78.3 L MCH RDW 19.6 H Plt Count 72 L MPV Gran % Lymph % (Auto) Lymph # (Auto) Nucleated RBCs 1 H RBC Morphology Abnorm A Anisocytosis 1+ A Sodium 132 L Carbon Dioxide 16 L 16 L Anion Gap 18.0 H 18.0 H BUN 61 H 62 H Creatinine 1.7 H 1.8 H Glucose Uric Acid 13.6 H 14.1 H Phosphorus 4.7 H Total Bilirubin 3.2 H 2.9 H Direct Bilirubin 2.3 H 2.1 H GGT 130 H 103 H AST 60 H 58 H ALT 63 H 58 H Alkaline Phosphatase 232 H 211 H Lactate Dehydrogenase 393 H 331 H Total Protein 5.7 L Albumin 3.0 L 2.9 L Vancomycin Trough 04/08/20 05:10 RBC MCV 79.4 L MCH 25.5 L RDW 19.7 H Plt Count 53 L MPV 12.7 H Gran % Lymph % (Auto) Lymph # (Auto) Nucleated RBCs RBC Morphology Anisocytosis Sodium Carbon Dioxide Anion Gap BUN Creatinine Glucose Uric Acid Phosphorus Total Bilirubin Direct Bilirubin GGT AST ALT Alkaline Phosphatase Lactate Dehydrogenase Total Protein Albumin Vancomycin Trough Meds: Medications Hydrocodone Bitart/Acetaminophen ([place] 5/325mg) 1 tab PO Q6HP PRN; Protocol PRN Reason: Per Pain Protocol Last Admin: 04/10/20 10:53 Dose: 1 tab Documented by: Albuterol/Ipratropium (Duoneb) 3 ml NEB Q4HP PRN PRN Reason: Shortness Of Breath Apixaban (Eliquis) 2.5 mg PO BID [facility] Last Admin: 04/10/20 10:54 Dose: 2.5 mg Documented by: Aspirin (Aspirin) 81 mg PO DAILY [facility] Last Admin: 04/10/20 10:53 Dose: 81 mg Documented by: Bisacodyl (Dulcolax) 10 mg [place] Q2-3DAYS PRN PRN Reason: Constipation Dextrose (Dextrose 50%) 0 ml IV UD PRN PRN Reason: Hypoglycemia Diagnostic Test (Pha) (Accu-Chek) 1 each FS ACHS [facility] Last Admin: 04/10/20 17:13 Dose: 1 each Documented by: Docusate Sodium (Colace) 100 mg PO BID [facility] Last Admin: 04/10/20 07:46 Dose: Not Given Documented by: Furosemide (Lasix) 20 mg IV DAILY [facility] Last Admin: 04/10/20 10:57 Dose: 20 mg Documented by: Glucose (Insta-Glucose) 15 gm PO PRN PRN PRN Reason: Hypoglycemia Guaifenesin (Robitussin Dm) 10 ml PO Q4HP PRN PRN Reason: Cough Acetaminophen (Ofirmev) 650 mg in 65 mls @ 130 mls/hr IV Q6HP PRN; Protocol PRN Reason: Per Pain Protocol/Fever > 101 Ceftriaxone Sodium 2 gm/ (Dextrose) 50 mls @ 100 mls/hr IV DAILY [facility]; Protocol Last Infusion: 04/10/20 11:35 Dose: Infused Documented by: Magnesium Sulfate (Magnesium Sulfate) 2 gm in 50 mls @ 50 mls/hr IV UD PRN PRN Reason: MG = or < 1.7 Potassium Chloride 40 meq/ (Dextrose) 520 mls @ 130 mls/hr IV UD PRN PRN Reason: K+ = or < 3.5 Insulin Human Lispro (Humalog) 0 unit SQ ACHS [facility]; Protocol Last Admin: 04/10/20 17:16 Dose: Not Given Documented by: Iron Carb/Multivit/[place]/Folic Acid (Multivitamin W/Minerals) 1 tab PO DAILY [facility] Last Admin: 04/10/20 11:02 Dose: Not Given Documented by: Levothyroxine Sodium (Synthroid) 88 mcg PO QAMAC [facility] Last Admin: 04/10/20 07:49 Dose: 88 mcg Documented by: Melatonin (Melatonin 3mg Tablet) 3 mg PO HSP PRN PRN Reason: Insomnia Last Admin: 04/09/20 20:19 Dose: 3 mg Documented by: Ondansetron HCl (Zofran Odt) 4 mg SL Q6HP PRN; Protocol PRN Reason: Nausea And Vomiting Ondansetron HCl (Zofran) 4 mg IV Q6HP PRN; Protocol PRN Reason: Nausea And Vomiting Sodium Chloride (Saline Flush) 10 ml IV Q8 [facility] Last Admin: 04/10/20 15:10 Dose: 10 ml Documented by: A/P Narrative A/P Narrative: A: *Septic shock w/multiple organ dysfunction: -off levaphed. Blood culture negative. *LLE cellulitis: Improving -no dvt on u/s, mrsa screen neg *UTI (e.coli) *Chronic CHF (EF 40%/severe MR&TR): -BB hold until shock resolved -lasix 20mg iv daily if BP allows. *Chronic Lymphedema: *DIEGO on CKD III: improved *Fatty liver: *COPD(not on home O2): follows with dr yusuf -Patient was a longtime smoker but quit several months ago *DM II: *Gen Weakness and deconditioning *Hypothyroidism: *Morbid obesity: *Thrombocytopenia: etiology unknown. Ultrasound abdomen in March 2020 did not show splenomegaly. Cannot exclude HIT. Discontinued heparin and started Eliquis 2.5 mg twice daily (patient has rectal bleeding possibly from hemorrhoids so I did not give her 5 mg twice daily). Plt started to trend up. Repeat her platelets in morning. *Scabies infection: permethrin topical P: -cont rocephin - -BB, Lasix -limb elevation. Wound care consult - continue basal prandial insulin/CC diet - continue PT OT - -f/u with GI/Neprho/Pulm as scheduled -CM for placement -ppx: Eliquis CODE STATUS: tube coverer Spent With Patient Time: Total time spent is greater than 50% in coordination of care (as d ocumented) at patient's floor/unit and/or counseling patient: QUALITY VTE Deep Vein Thrombosis/Pulmonary Embolism Present on Admission: No
[2020-04-10] MEDS: METOPROLOL SUCCINATE 25 MG TAB.XL.24H PO SCH (20:35)
--- NOTE | 2020-04-10 21:01 | Internal Med Progress Note ---
SUBJECTIVE Subjective Patient information: Note initiated : 04/10/20 at 8:55 pm Service Date, if different from initiated Date: [] Patient: Cait Reyes 65 y/o F admitted on 04/04/20 for left leg swelling. Chief Complaint: [] Ms. Reyes is a 65 year old F with a history of NYHA class III systolic heart failure EF 40%/W[place]/MR/COPD/history of cardiac cirrhosis/CKD stage III/DM type II and chronic lymphedema presents to the ER with rapid onset of left leg swelling, pain, redness extending up to middle of the thigh overnight. Patient went to her son and return to her apartment last night and was in her baseline state of health, she woke up this morning with severe pain swelling redness chills and subjective fever. She has chronic lymphedema from underlying CHF and takes diuretics. She also has allergic dermatitis for which she is frequently scratches her lower extremities and has been doing so over the last couple of days. She denies history of MRSA or recurrent cellulitis. She denies recent trauma. Initial work-up in the ER was consistent with severe sepsis with hypotension/e ndorgan dysfunction including acute kidney injury with a creatinine of 2.1, blood pressure 60s. Patient was started on antibiotic coverage after cultures were drawn. Elevated lactic acid. Subsequently hospitalist service was consulted for admission At the time of my evaluation patient is alert and oriented. She is moderate distress from left lower extremity redness swelling and pain. She was able to endorse history as above. She denies cough, chest palpitation headache but endorses to weakness, myalgia, chills but no diaphoresis. Shortly following admission to ICU patient systolics down to 70s and worsening clinical status. Patient started on Levophed. Diuretics discontinued. On a ntibiotic coverage. 04/05-patient overnight on Levophed. Clinical improvement noted with more lucid alert map at goal. White count 21.6 from 8000. 18% bands. Worsening left lower extremity redness extending up to the groin. However induration and lymphedema improved. Cultures negative so far. Creatinine down to 1.8, bilirubin 4.5 up from 3.7, underlying cardiac cirrhosis. Urine culture gram- negative bacillus. On Rocephin/vancomycin. Blood cultures pending so far. Patient remains critically ill. Continue ICU care 04/06 Patient complains of pain from Covarrubias catheter. Otherwise the patient feels better. Her blood pressure is improving. This morning Levophed was off. Oxygen saturation is fine on room air WBC went down to 17.6 from 21.6 yesterday. Creatinine improving to 1.5 today Urine culture showed positive for E. coli, sensitive to all antibiotics 04/07 Patient does not have any new complaints. Denies headache, dizziness, nausea, or vomiting. Vital signs are stable. Oxygen saturation is good on room air White blood cells went down to 17.6 Her cellulitis is significantly improving, decrease the area of erythema in size. Bicarbonate is 16 -VBG showed pH 7.37, PCO2 33, PO2 41, Platelets dropped to 57. 04/08 Patient feels fine today and does not have any complaints. Her systolic blood pressure close to 120 Saturation is good on room air WBC normalized today, 9. Creatinine 1.8 But platelets dropped to 53 from 57 yesterday. Repeat her platelets. If continue to drop, I will change antibiotics. 04/09 I was reported that patient cried yesterday. Saw patient this morning and talked with patient. She told me that yesterday she thought she would . I explained her condition to her and she promised to me she will not think about that way. She denied suicidal ideation. Her cellulitis is improving. Continue current antibiotics Platelets went up to 72 from 53 yesterday. She is happy with the treatment. 04/10 Today pt feels fine. When I saw her this morning son was in her room. I updated her condition to her. She is happy with the treatment regimen. Cellulitis continue to improve Plt elevated to 87 today. PT/OT for discharge plan ROS: Positive for the symptoms mentioned above. All other systems were reviewed and are negative. Constitutional Vitals: Vital Signs Temp Pulse Resp BP Pulse Ox 98.3 F 116 H 20 124/91 99 04/10/20 16:00 04/10/20 16:00 04/10/20 16:00 04/10/20 16:04/10/20 16:00 Period Temp Pulse Resp BP Sys/Garcia Pulse Ox Last 24 Hr 97.3 F-98.4 F 94-116 - 98-124/64-91 96-99 Intake and Output 04/10/20 04/10/20 04/10/20 05:59 13:59 21:59 Intake Total 240 840 250 Output Total 455 200 Balance 240 385 50 Weight 97.704 kg Patient Weight 04/11/20 05:59 Weight 97.704 kg Intake & Output: Intake & Output 04/10/20 04/10/20 04/10/20 05:59 13:59 21:59 Intake Total 240 840 250 Output Total 455 200 Balance 240 385 50 Weight 97.704 kg Intake: IV 300 Vancomycin 1,000 mg In Sodium 250 Chloride 0.9% 250 ml @ 250 mls/ hr IV Q24H [facility] Rx#:[id number] Rocephin 2 gm In Dextrose 5% in 50 Water 50 ml @ 100 mls/hr IV DAILY [facility] Rx#:[id number] Oral 240 540 250 Output: Void Amount 455 200 Other: Meal Breakfast Lunch Percent of Meal Consumed 100% 50% Feeding Ability Assist with Tray Set Up Assist with Tray Set Up Urine Appearance Clear Urine Color Bright Yellow Dark Yellow Urine Odor Normal Strong # Voids 1 Additional findings Additional findings: General - No acute distress Eyes - PERRLA, EOM intact ENT no rhinorrhea, no noticeable or palpable swelling, no redness or rash around throat or on face Neck supple, no JVD, no thyromegaly Respiratory: Lungs - couerse BS, no use of accessary muscles. Cardiovascular - RRR no m/r/g, GI - Normal bowel sounds, no distended, soft. Extremeties - Pitting edema +++ in both legs (improving) , left lower extremity erythema/induration (significantly decreased in size), no joint swelling Hemo/lymphatic/immune no lymphadenopathy Neurological Alert and oriented x 3, no focal neurological deficits. Psychiatry flat affect OBJ DATA Labs CBC & Chem 7: 04/10/20 05:51 04/10/20 05:50 Labs: Abnormal Lab Results 04/10/20 04/10/20 04/09/20 05:51 05:50 09:52 RBC 5.58 H MCV MCH 25.8 L RDW 19.9 H Plt Count 87 L MPV 11.2 H Gran % 78.8 H Lymph % (Auto) 10.4 L Lymph # (Auto) 0.81 L Nucleated RBCs RBC Morphology Anisocytosis Sodium 132 L Carbon Dioxide 20 L Anion Gap BUN 55 H Creatinine 1.3 H Glucose 134 H Uric Acid 13.1 H Phosphorus Total Bilirubin 3.5 H Direct Bilirubin 2.4 H GGT 132 H AST 48 H ALT 57 H Alkaline Phosphatase 254 H Lactate Dehydrogenase 404 H Total Protein Albumin 3.0 L Vancomycin Trough 22.1 H* 04/09/20 04/09/20 04/08/20 06:31 06:31 05:10 RBC 5.45 H MCV 78.3 L MCH RDW 19.6 H Plt Count 72 L MPV Gran % Lymph % (Auto) Lymph # (Auto) Nucleated RBCs 1 H RBC Morphology Abnorm A Anisocytosis 1+ A Sodium 132 L Carbon Dioxide 16 L 16 L Anion Gap 18.0 H 18.0 H BUN 61 H 62 H Creatinine 1.7 H 1.8 H Glucose Uric Acid 13.6 H 14.1 H Phosphorus 4.7 H Total Bilirubin 3.2 H 2.9 H Direct Bilirubin 2.3 H 2.1 H GGT 130 H 103 H AST 60 H 58 H ALT 63 H 58 H Alkaline Phosphatase 232 H 211 H Lactate Dehydrogenase 393 H 331 H Total Protein 5.7 L Albumin 3.0 L 2.9 L Vancomycin Trough 04/08/20 05:10 RBC MCV 79.4 L MCH 25.5 L RDW 19.7 H Plt Count 53 L MPV 12.7 H Gran % Lymph % (Auto) Lymph # (Auto) Nucleated RBCs RBC Morphology Anisocytosis Sodium Carbon Dioxide Anion Gap BUN Creatinine Glucose Uric Acid Phosphorus Total Bilirubin Direct Bilirubin GGT AST ALT Alkaline Phosphatase Lactate Dehydrogenase Total Protein Albumin Vancomycin Trough Meds: Medications Hydrocodone Bitart/Acetaminophen ([place] 5/325mg) 1 tab PO Q6HP PRN; Protocol PRN Reason: Per Pain Protocol Last Admin: 04/10/20 10:53 Dose: 1 tab Documented by: Albuterol/Ipratropium (Duoneb) 3 ml NEB Q4HP PRN PRN Reason: Shortness Of Breath Apixaban (Eliquis) 2.5 mg PO BID [facility] Last Admin: 04/10/20 20:16 Dose: 2.5 mg Documented by: Aspirin (Aspirin) 81 mg PO DAILY [facility] Last Admin: 04/10/20 10:53 Dose: 81 mg Documented by: Bisacodyl (Dulcolax) 10 mg [place] Q2-3DAYS PRN PRN Reason: Constipation Dextrose (Dextrose 50%) 0 ml IV UD PRN PRN Reason: Hypoglycemia Diagnostic Test (Pha) (Accu-Chek) 1 each FS ACHS [facility] Last Admin: 04/10/20 20:21 Dose: 1 each Documented by: Docusate Sodium (Colace) 100 mg PO BID [facility] Last Admin: 04/10/20 20:16 Dose: Not Given Documented by: Furosemide (Lasix) 20 mg IV DAILY [facility] Last Admin: 04/10/20 10:57 Dose: 20 mg Documented by: Glucose (Insta-Glucose) 15 gm PO PRN PRN PRN Reason: Hypoglycemia Guaifenesin (Robitussin Dm) 10 ml PO Q4HP PRN PRN Reason: Cough Acetaminophen (Ofirmev) 650 mg in 65 mls @ 130 mls/hr IV Q6HP PRN; Protocol PRN Reason: Per Pain Protocol/Fever > 101 Ceftriaxone Sodium 2 gm/ (Dextrose) 50 mls @ 100 mls/hr IV DAILY [facility]; Protocol Last Infusion: 04/10/20 11:35 Dose: Infused Documented by: Magnesium Sulfate (Magnesium Sulfate) 2 gm in 50 mls @ 50 mls/hr IV UD PRN PRN Reason: MG = or < 1.7 Potassium Chloride 40 meq/ (Dextrose) 520 mls @ 130 mls/hr IV UD PRN PRN Reason: K+ = or < 3.5 Insulin Human Lispro (Humalog) 0 unit SQ [facility]; Protocol Last Admin: 04/10/20 20:20 Dose: Not Given Documented by: Iron Carb/Multivit/[place]/Folic Acid (Multivitamin W/Minerals) 1 tab PO DAILY [facility] Last Admin: 04/10/20 11:02 Dose: Not Given Documented by: Levothyroxine Sodium (Synthroid) 88 mcg PO QAMAC [facility] Last Admin: 04/10/20 07:49 Dose: 88 mcg Documented by: Melatonin (Melatonin 3mg Tablet) 3 mg PO HSP PRN PRN Reason: Insomnia Last Admin: 04/09/20 20:19 Dose: 3 mg Documented by: Metoprolol Succinate (Toprol Xl) 12.5 mg PO DAILY [facility] Last Admin: 04/10/20 20:35 Dose: Not Given Documented by: Ondansetron HCl (Zofran Odt) 4 mg SL Q6HP PRN; Protocol PRN Reason: Nausea And Vomiting Ondansetron HCl (Zofran) 4 mg IV Q6HP PRN; Protocol PRN Reason: Nausea And Vomiting Sodium Chloride (Saline Flush) 10 ml IV Q8 [facility] Last Admin: 04/10/20 15:10 Dose: 10 ml Documented by: A/P Time Spent With Patient Time: 1. Septic shock with multiple organ dysfunction - off levaphed and downgraded to MedSurg yesterday. Blood culture negative. Continue Roce phin/vancomycin. 2. Left lower extremity cellulitis. Improving. Ultrasound lower extremity negative for DVT, await cultures. Continue vancomycin and Rocephin, limb elevation 3. UTI-on antibiotic coverage. Urine culture positive for E. coli which is sensitive to all antibiotics. 4. Chronic CHF with EF 40%/severe MR TR. beta-blockers on hold until shock resolved. lasix 20mg iv daily if BP allows. 5. Lower extreme lymphedema continue limb elevation. Wound care consult 6. Acute on chronic kidney injury. Creatinine 1.7. Baseline creatinine 1. Likely sepsis endorgan dysfunction. Repeat the renal function in morning 7. History of cirrhosis secondary congestive hepatopathy. Bilirubinemia. Continue monitoring. US abod on 03/25/20 - Markedly hyperechoic liver compatible with fatty change or other diffuse hepatocellular process. Common bile duct is normal 8. History of COPD continue bronchodilators 9. DM type II continue basal prandial insulin/CC diet 10. Weakness and deconditioning continue PT OT 11. Hypothyroidism contraction 12. Morbid obesity -follow with the PCP 13. Thrombocytopenia -etiology unknown. Ultrasound abdomen in March 2020 did not show splenomegaly. Cannot exclude HIT. Discontinued heparin and started Eliquis 2.5 mg twice daily (patient has rectal bleeding possibly from hemorrhoids so I did not give her 5 mg twice daily). Plt started to trend up. Repeat her platelets in morning. 14. Scabies infection - permethrin topical 15. DVT prophylaxis: Eliquis 16. CODE STATUS: full Plan monitor vital signs Antibiotic coverage Limb elevation Pre-existing medical condition management home meds except for antihypertensives QUALITY VTE Deep Vein Thrombosis/Pulmonary Embolism Present on Admission: No
[2020-04-11] MEDS: 0.9 % SODIUM CHLORIDE 10 ML SYRINGE IV SCH ×3 (00:10→12:28)
[2020-04-11] MEDS: DOCUSATE SODIUM 100 MG CAPSULE PO SCH (07:15)
[2020-04-11] MEDS: MULTIVIT,THER IRON,CA,FA & MIN 1 TABLET PO SCH (07:16)
--- NOTE | 2020-04-11 07:39 | Internal Med Progress Note ---
SUBJECTIVE Subjective Patient information: Note initiated : 04/11/20 at 7:36 am Service Date, if different from initiated Date: [] Patient: Cait Reyes 65 y/o F admitted on 04/04/20 for left leg swelling. Chief Complaint: [] Interval history: Ms. Reyes is a 65 year old F with a history of NYHA class III systolic heart failure EF 40%/NE/MR/COPD/history of cardiac cirrhosis/CKD stage III/DM type II and chronic lymphedema presents to the ER with rapid onset of left leg swelling, pain, redness extending up to middle of the thigh overnight. Patient went to her son and return to her apartment last night and was in her baseline state of health, she woke up this morning with severe pain swelling redness chills and subjective fever. She has chronic lymphedema from underlying CHF and takes diuretics. She also has allergic dermatitis for which she is frequently scratches her lower extremities and has been doing so over the last couple of days. She denies history of MRSA or recurrent cellulitis. She denies recent trauma. Initial work-up in the ER was consistent with severe sepsis with hypotension/endorgan dysfunction including acute kidney injury with a creatinine of 2.1, blood pressure 60s. Patient was started on antibiotic coverage after cultures were drawn. Elevated lactic acid. Subsequently hospitalist service was consulted for admission At the time of my evaluation patient is alert and oriented. She is moderate distress from left lower extremity redness swelling and pain. She was able to endorse history as above. She denies cough, chest palpitation headache but endorses to weakness, myalgia, chills but no diaphoresis. Shortly following admission to ICU patient systolics down to 70s and worsening clinical status. Patient started on Levophed. Diuretics discontinued. On antibiotic coverage. 04/05-patient overnight on Levophed. Clinical improvement noted with more lucid alert map at goal. White count 21.6 from 8000. 18% bands. Worsening left lower extremity redness extending up to the groin. However induration and lymphedema improved. Cultures negative so far. Creatinine down to 1.8, bilirubin 4.5 up from 3.7, underlying cardiac cirrhosis. Urine culture gram- negative bacillus. On Rocephin/vancomycin. Blood cultures pending so far. Patient remains critically ill. Continue ICU care 04/06 Patient complains of pain from Covarrubias catheter. Otherwise the patient feels better. Her blood pressure is improving. This morning Levophed was off. Oxygen saturation is fine on room air WBC went down to 17.6 from 21.6 yesterday. Creatinine improving to 1.5 today Urine culture showed positive for E. coli, sensitive to all antibiotics 04/07 Patient does not have any new complaints. Denies headache, dizziness, nausea, or vomiting. Vital signs are stable. Oxygen saturation is good on room air White blood cells went down to 17.6 Her cellulitis is significantly improving, decrease the area of erythema in size. Bicarbonate is 16 -VBG showed pH 7.37, PCO2 33, PO2 41, Platelets dropped to 57. 04/08 Patient feels fine today and does not have any complaints. Her systolic blood pressure close to 120 Saturation is good on room air WBC normalized today, 9. Creatinine 1.8 But platelets dropped to 53 from 57 yesterday. Repeat her platelets. If continue to drop, I will change antibiotics. 04/09 I was reported that patient cried yesterday. Saw patient this morning and talked with patient. She told me that yesterday she thought she would . I explained her condition to her and she promised to me she will not think about that way. She denied suicidal ideation. Her cellulitis is improving. Continue current antibiotics Platelets went up to 72 from 53 yesterday. She is happy with the treatment. 04/10 Today pt feels fine. When I saw her this morning son was in her room. I updated her condition to her. She is happy with the treatment regimen. Cellulitis continue to improve Plt elevated to 87 today. PT/OT for discharge plan 04/11 No new complaints other than does not want to be put for labs anymore and sometimes does not want to walk with physical therapy because of arthritis in her leg. *Readdressed with her that I prefer to stay 1 more night given and give a little more IV diuresis to improved her leg edema and optimize her fluid balance. Patient is adamant about leaving and refusing any IV treatments or blood draws. Is refusing rehab facility, does have home health care at home. Patient adamant about leaving today. Review of Systems: denies headache/fever/chills/nausea/vomiting/chest or abdominal pain/cough/dyspnea/diarrhea. Otherwise see above. Constitutional Vitals: Vital Signs Temp Pulse Resp BP Pulse Ox 97.8 F 110 H 14 109/79 97 04/11/20 07:17 04/11/20 07:17 04/11/20 07:17 04/11/20 07:17 04/11/20 07:17 Period Temp Pulse Resp BP Sys/Garcia Pulse Ox Last 24 Hr 97.2 F-98.4 F 94-117 12-22 109-139/73-91 95-99 Intake and Output 04/10/20 04/11/20 04/11/20 21:59 05:59 13:59 Intake Total 250 240 Output Total 275 300 Balance -25 -60 Weight 94.574 kg Intake & Output: Intake & Output 04/10/20 04/11/20 04/11/20 21:59 05:59 13:59 Intake Total 250 240 Output Total 275 300 Balance -25 -60 Weight 94.574 kg Intake: Oral 250 240 Output: Void Amount 275 300 Other: Meal Lunch Percent of Meal Consumed 50% Feeding Ability Assist with Tray Set Up Urine Appearance Clear Clear Urine Color Pale Bright Yellow Urine Odor Strong # Voids 1 Exam: General: Alert, Awake, No acute Distress Eyes/N/T: EOMI, Head/Neck: neck supple, CV: RRR, No murmurs, Pulm: course b/l, no wheezing Abd: soft, nontender, +BS x4 Ext: no clubbing/cyanosis, b/l LE edema 2-3+, LLE erythema/induration improving Neuro: Alert, no focal deficits, moves all extremities, Skin: warm/dry Head Head exam: Present atraumatic and normal inspection Eye Eye exam: Present normal appearance ENT ENT exam: Present mucous membranes moist, normal exam and normal external ear exam Neck Neck exam: Present normal inspection Respiratory Respiratory exam: Present normal respiratory exam Cardiovascular Cardiovascular exam: Present normal rate and rhythm GI/Abdominal GI/Abdominal exam: Present normal bowel sounds Back Exam Back exam: Present normal inspection Neurological Exam Neurological exam: Present alert and oriented X3 Skin Skin exam: Present intact and warm OBJ DATA Labs CBC & Chem 7: 04/10/20 05:51 04/10/20 05:50 Labs: Abnormal Lab Results 04/10/20 04/10/20 04/09/20 05:51 05:50 09:52 RBC 5.58 H MCV MCH 25.8 L RDW 19.9 H Plt Count 87 L MPV 11.2 H Gran % 78.8 H Lymph % (Auto) 10.4 L Lymph # (Auto) 0.81 L Nucleated RBCs RBC Morphology Anisocytosis Sodium 132 L Carbon Dioxide 20 L Anion Gap BUN 55 H Creatinine 1.3 H Glucose 134 H Uric Acid 13.1 H Total Bilirubin 3.5 H Direct Bilirubin 2.4 H GGT 132 H AST 48 H ALT 57 H Alkaline Phosphatase 254 H Lactate Dehydrogenase 404 H Albumin 3.0 L Vancomycin Trough 22.1 H* 04/09/20 04/09/20 06:31 06:31 RBC 5.45 H MCV 78.3 L MCH RDW 19.6 H Plt Count 72 L MPV Gran % Lymph % (Auto) Lymph # (Auto) Nucleated RBCs 1 H RBC Morphology Abnorm A Anisocytosis 1+ A Sodium 132 L Carbon Dioxide 16 L Anion Gap 18.0 H BUN 61 H Creatinine 1.7 H Glucose Uric Acid 13.6 H Total Bilirubin 3.2 H Direct Bilirubin 2.3 H GGT 130 H AST 60 H ALT 63 H Alkaline Phosphatase 232 H Lactate Dehydrogenase 393 H Albumin 3.0 L Vancomycin Trough Meds: Medications Hydrocodone Bitart/Acetaminophen ([place] 5/325mg) 1 tab PO Q6HP PRN; Protocol PRN Reason: Per Pain Protocol Last Admin: 04/10/20 10:53 Dose: 1 tab Documented by: Albuterol/Ipratropium (Duoneb) 3 ml NEB Q4HP PRN PRN Reason: Shortness Of Breath Apixaban (Eliquis) 2.5 mg PO BID [facility] Last Admin: 04/10/20 20:16 Dose: 2.5 mg Documented by: Aspirin (Aspirin) 81 mg PO DAILY [facility] Last Admin: 04/10/20 10:53 Dose: 81 mg Documented by: Bisacodyl (Dulcolax) 10 mg NE Q2-3DAYS PRN PRN Reason: Constipation Dextrose (Dextrose 50%) 0 ml IV UD PRN PRN Reason: Hypoglycemia Diagnostic Test (Pha) (Accu-Chek) 1 each FS ACHS [facility] Last Admin: 04/10/20 20:21 Dose: 1 each Documented by: Docusate Sodium (Colace) 100 mg PO BID [facility] Last Admin: 04/11/20 07:15 Dose: Not Given Documented by: Furosemide (Lasix) 20 mg IV DAILY [facility] Last Admin: 04/10/20 10:57 Dose: 20 mg Documented by: Glucose (Insta-Glucose) 15 gm PO PRN PRN PRN Reason: Hypoglycemia Guaifenesin (Robitussin Dm) 10 ml PO Q4HP PRN PRN Reason: Cough Acetaminophen (Ofirmev) 650 mg in 65 mls @ 130 mls/hr IV Q6HP PRN; Protocol PRN Reason: Per Pain Protocol/Fever > 101 Ceftriaxone Sodium 2 gm/ (Dextrose) 50 mls @ 100 mls/hr IV DAILY [facility]; Protocol Last Infusion: 04/10/20 11:35 Dose: Infused Documented by: Magnesium Sulfate (Magnesium Sulfate) 2 gm in 50 mls @ 50 mls/hr IV UD PRN PRN Reason: MG = or < 1.7 Potassium Chloride 40 meq/ (Dextrose) 520 mls @ 130 mls/hr IV UD PRN PRN Reason: K+ = or < 3.5 Insulin Human Lispro (Humalog) 0 unit SQ ACHS [facility]; Protocol Last Admin: 04/10/20 20:20 Dose: Not Given Documented by: Iron Carb/Multivit/[place]/Folic Acid (Multivitamin W/Minerals) 1 tab PO DAILY [facility] Last Admin: 04/11/20 07:16 Dose: Not Given Documented by: Levothyroxine Sodium (Synthroid) 88 mcg PO QAMAC [facility] Last Admin: 04/10/20 07:49 Dose: 88 mcg Documented by: Melatonin (Melatonin 3mg Tablet) 3 mg PO HSP PRN PRN Reason: Insomnia Last Admin: 04/09/20 20:19 Dose: 3 mg Documented by: Metoprolol Succinate (Toprol Xl) 12.5 mg PO DAILY [facility] Last Admin: 04/10/20 20:35 Dose: Not Given Documented by: Ondansetron HCl (Zofran Odt) 4 mg SL Q6HP PRN; Protocol PRN Reason: Nausea And Vomiting Ondansetron HCl (Zofran) 4 mg IV Q6HP PRN; Protocol PRN Reason: Nausea And Vomiting Sodium Chloride (Saline Flush) 10 ml IV Q8 [facility] Last Admin: 04/11/20 04:38 Dose: 10 ml Documented by: A/P Narrative A/P Narrative: A: *Septic shock w/multiple organ dysfunction: resolved -off levaphed. Blood culture negative. *LLE cellulitis: Improving -no dvt on u/s, mrsa screen neg *UTI (e.coli): *Chronic CHF (EF 40%/severe MR&TR): *Chronic Lymphedema: *DIEGO on CKD III: improved *Fatty liver: *COPD(not on home O2): follows with dr yusuf -Patient was a longtime smoker but quit several months ago *DM II: *Gen Weakness and deconditioning *Hypothyroidism: *Morbid obesity: *Thrombocytopenia: etiology unknown. Ultrasound abdomen in March 2020 did not show splenomegaly. Cannot exclude HIT. Discontinued heparin and started Eliquis 2.5 mg twice daily (patient has rectal bleeding possibly from hemorrhoids so I did not give her 5 mg twice daily). Plt started to trend up. Repeat her platelets in morning. *Scabies infection: permethrin topical *Refusing some cares: lab draws and ambulation to bathroom P: -cont rocephin - -BB, Lasix -limb elevation. 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
[2020-04-11] MEDS: INSULIN LISPRO 1 UNIT/0.01 ML UNIT SQ SCH ×3 (07:40→16:59)
[2020-04-11] MEDS: METOPROLOL SUCCINATE 25 MG TAB.XL.24H PO SCH (08:50)
[2020-04-11] MEDS: LEVOTHYROXINE 88 MCG TABLET PO SCH (08:51)
[2020-04-11] MEDS: ASPIRIN 81 MG TAB.CHEW PO SCH (08:51)
[2020-04-11] MEDS: APIXABAN 5 MG TABLET PO SCH (08:51)
[2020-04-11] MEDS: cefTRIAXone 2 GM in DEXTROSE 5% IN WATER 50 ML IV SCH (08:51)
[2020-04-11] MEDS: FUROSEMIDE 20 MG/2 ML VIAL IV SCH (08:53)
[2020-04-11] MEDS ORDERED: FUROSEMIDE 40 MG TABLET PO ONE (11:06)
--- NOTE | 2020-04-11 11:13 | Discharge Summary ---
Discharge Provider Provider Patient information: Note initiated : 04/11/20 at 11:10 am Service Date, if different from initiated Date: [] Patient: Cait Reyes 65 y/o F admitted on 04/04/20 for left leg swelling. Chief Complaint: [] Date of admission: 04/04/20 16:00 Discharge date: 04/11/20 Primary care physician: FRANCISCA Jesus Consults: 04/04/20 Consult to Physician [CONS] Stat Comment: Consulting Provider: Osman Prado Reason For Exam: Physician to Consult 04/08/20 09:33 Consult to Physician [CONS] Routine Comment: Consulting Provider: Ramsey Banks Reason For Exam: Physician to Consult Discharge Meds Discharge Medications Home Medications aspirin [Adult Low Dose Aspirin] 81 mg PO DAILY 04/25/16 [History Confirmed 04/04/20 Last Taken 04/03/20] albuterol sulfate 90 mcg/actuation aerosol inhaler See Rx Instructions INHALATION .Q4-6H PRN g 03/21/20 [History Confirmed 04/04/20 Last Taken 04/03/20] potassium chloride 10 mEq capsule,extended release 10 meq PO DAILY 03/21/20 [Hi story Confirmed 04/04/20 Last Taken Unknown] furosemide See Rx Instructions .ROUTE .COMPLEX 03/25/20 [History Confirmed 04/04/20 Last Taken 04/03/20] levothyroxine 88 mcg PO QAMAC #30 tab 03/26/20 [Rx Confirmed 04/04/20 Last Taken Unknown] metoprolol succinate 12.5 mg PO DAILY #30 tab 03/26/20 [Rx Confirmed 04/04/20 Last Taken 04/03/20] ondansetron 4 - 8 mg PO BIDP PRN 03/26/20 [History Confirmed 04/04/20 Last Taken Unknown] dextromethorphan-guaifenesin [Adult Tussin DM] 10 ml PO Q4H PRN 04/05/20 [History Confirmed 04/05/20 Last Taken Unknown] polyethylene glycol 3350 [Miralax] 17 g PO BID 04/05/20 [History Confirmed 04/05/20 Last Taken Unknown] sennosides [senna] 8.6 mg PO QDAY 04/05/20 [History Confirmed 04/05/20 Last Taken Unknown] COURSE Hospital Course Hospital course: Interval history: Ms. Reyes is a 65 year old F with a history of NYHA class III systolic heart failure EF 40%/ME/MR/COPD/history of cardiac cirrhosis/CKD stage III/DM type II and chronic lymphedema presents to the ER with rapid onset of left leg swelling, pain, redness extending up to middle of the thigh overnight. Patient went to her son and return to her apartment last night and was in her baseline state of health, she woke up this morning with severe pain swelling redness chills and subjective fever. She has chronic lymphedema from underlying CHF and takes diuretics. She also has allergic dermatitis for which she is frequently scratches her lower extremities and has been doing so over the last couple of days. She denies history of MRSA or recurrent cellulitis. She denies recent trauma. Initial work-up in the ER was consistent with severe sepsis with hypotension/endorgan dysfunction including acute kidney injury with a creatinine of 2.1, blood pressure 60s. Patient was started on antibiotic coverage after cultures were drawn. Elevated lactic acid. Subsequently hospitalist service was consulted for admission At the time of my evaluation patient is alert and oriented. She is moderate distress from left lower extremity redness swelling and pain. She was able to endorse history as above. She denies cough, chest palpitation headache but endorses to weakness, myalgia, chills but no diaphoresis. Shortly following admission to ICU patient systolics down to 70s and worsening clinical status. Patient started on Levophed. Diuretics discontinued. On antibiotic coverage. 04/05-patient overnight on Levophed. Clinical improvement noted with more lucid alert map at goal. White count 21.6 from 8000. 18% bands. Worsening left lower extremity redness extending up to the groin. However induration and lymphedema improved. Cultures negative so far. Creatinine down to 1.8, bilirubin 4.5 up from 3.7, underlying cardiac cirrhosis. Urine culture gram- negative bacillus. On Rocephin/vancomycin. Blood cultures pending so far. Patient remains critically ill. Continue ICU care 04/06 Patient complains of pain from Covarrubias catheter. Otherwise the patient feels better. Her blood pressure is improving. This morning Levophed was off. Oxygen saturation is fine on room air WBC went down to 17.6 from 21.6 yesterday. Creatinine improving to 1.5 today Urine culture showed positive for E. coli, sensitive to all antibiotics 04/07 Patient does not have any new complaints. Denies headache, dizziness, nausea, or vomiting. Vital signs are stable. Oxygen saturation is good on room air White blood cells went down to 17.6 Her cellulitis is significantly improving, decrease the area of erythema in size. Bicarbonate is 16 -VBG showed pH 7.37, PCO2 33, PO2 41, Platelets dropped to 57. 04/08 Patient feels fine today and does not have any complaints. Her systolic blood pressure close to 120 Saturation is good on room air WBC normalized today, 9. Creatinine 1.8 But platelets dropped to 53 from 57 yesterday. Repeat her platelets. If continue to drop, I will change antibiotics. 04/09 I was reported that patient cried yesterday. Saw patient this morning and talked with patient. She told me that yesterday she thought she would . I explained her condition to her and she promised to me she will not think about that way. She denied suicidal ideation. Her cellulitis is improving. Continue current antibiotics Platelets went up to 72 from 53 yesterday. She is happy with the treatment. 04/10 Today pt feels fine. When I saw her this morning son was in her room. I updated her condition to her. She is happy with the treatment regimen. Cellulitis continue to improve Plt elevated to 87 today. PT/OT for discharge plan 04/11 No new complaints other than does not want to be put for labs anymore and sometimes does not want to walk with physical therapy because of arthritis in her leg. *Readdressed with her that I prefer to stay 1 more night given and give a little more IV diuresis to improved her leg edema and optimize her fluid balance. Patient is adamant about leaving and refusing any IV treatments or blood draws. Is refusing rehab facility, does have home health care at home. Patient adamant about leaving today. Given significant comorbidities and refusal of therapies and recent hospitalizations patient is high risk for readmission A: *Septic shock w/multiple organ dysfunction: resolved -off levaphed. Blood culture negative. *LLE cellulitis: Improving -no dvt on u/s, mrsa screen neg *UTI (e.coli): *Chronic CHF (EF 40%/severe MR&TR): *Chronic Lymphedema: *DIEGO on CKD III: improved *Fatty liver: *COPD(not on home O2): follows with dr yusuf -Patient was a longtime smoker but quit several months ago *DM II: *Gen Weakness and deconditioning *Hypothyroidism: *Morbid obesity: *Thrombocytopenia: etiology unknown. Ultrasound abdomen in March 2020 did not show splenomegaly. Cannot exclude HIT. Discontinued heparin and started Eliquis 2.5 mg twice daily (patient has rectal bleeding possibly from hemorrhoids so I did not give her 5 mg twice daily). Plt started to trend up. Repeat her platelets in morning. *Scabies infection: permethrin topical *Refusing some cares: lab draws and ambulation to bathroom Discharge diagnosis: Septic shock left leg cellulitis UTI CHF chronic lymphedema DIEGO Secondary discharge diagnosis: Fatty liver COPD diabetes generalized weakness hypothyroidism morbid obesity thrombocytopenia scabies Time Spent with Patient Time attestation: Total time spent providing and/or coordinating discharge services: Time spent: Greater than 30 minutes EXAM Constitutional Vitals: Temp Pulse Resp BP Pulse Ox 97.8 F 110 H 14 109/79 97 04/11/20 07:17 04/11/20 07:17 04/11/20 07:17 04/11/20 07:17 04/11/20 07:17 Discharge Plan Patient/Caregiver Discharge Instructions Activity: increase activity as tolerated Diet: Consistent Carbohydrate Activity Restrictions/Additional Instructions: Follow-up with PCP in 3 to 7 days Prescriptions: Continued albuterol sulfate [ProAir HFA] 90 mcg/actuation HFA aerosol inhaler See Rx Instructions INHALATION .Q4-6H PRN (Reason: Shortness Of Breath) RF: 0 potassium chloride 10 mEq capsule, extended release 10 meq PO DAILY RF: 0 aspirin [Adult Low Dose Aspirin] 81 MG tablet,delayed release (DR/EC) 81 mg PO DAILY RF: 0 furosemide 20 mg tablet See Rx Instructions .ROUTE .COMPLEX RF: 0 ondansetron 4 mg Tablet,Disintegrating 4 - 8 mg PO BIDP PRN (Reason: Nausea) RF: 0 levothyroxine 88 mcg Tablet 88 mcg PO QAMAC Qty: 30 RF: 0 metoprolol succinate 25 mg Tablet Extended Release 24 Hr 12.5 mg PO DAILY Qty: 30 RF: 0 sennosides [senna] 8.6 mg Tablet 8.6 mg PO QDAY RF: 0 polyethylene glycol 3350 [Miralax] 17 gram/dose Powder 17 g PO BID RF: 0 dextromethorphan-guaifenesin [Adult Tussin DM] 10-100 mg/5 mL Syrup 10 ml PO Q4H PRN (Reason: Cough) RF: 0 Follow Up Plan Follow up with: Niko Ernst ARNP [Primary Care Provider] - Patient Disposition: Home Health Service Prognosis: Undetermined Rehab Potential: Fair Overall status at discharge: patient is progressing back to baseline Discharge Orders: Discharge Order (Routine); Ordered 04/11/20 [facility] Deep [facility] Th[facility]osis/Pulmonary Embolism Present on Admission: No
[2020-04-11] MEDS: HYDROcodone/APAP 5/325MG TABLET PO PRN (15:23)
== END 2020-04-11 20:07 | disposition home health service (06) | DRG 871 ==
LOC: ED 11:58 → ICU 16:00 → MEDSUR 04-08 13:15
PROVIDERS: ADMIT Internal Medicine; ATTEND Internal Medicine